=== PATIENT | male | born 1955 ===

== ENCOUNTER 2017-01-20 15:09 | Emergency (ER) | payer MEDICARE, MEDICAID ==
[2017-01-20 15:10] VITALS: BMI 27.6
[2017-01-20 15:18] VITALS: TEMP 97.8
[2017-01-20 15:19] VITALS: RESP 18
[2017-01-20] MEDS ORDERED: levoFLOXacin 500 MG TAB PO STA (15:34)
[2017-01-20] MEDS ORDERED: Oxycodone/Acetaminophen 10/325 mg Tab PO STA (15:35)
--- NOTE | 2017-01-20 15:41 | ED PDOC ---
Arrival/HPI - General Chief Complaint: ENT Problem Time Seen by Provider: 01/20/17 15:23 Historian: Patient - History of Present Illness Narrative History of Present Illness (Text): 01/20/17 15:25 This 61 yo male with pmh migraines, sinusitis, smoker, presents to this ED c/o exacerbation of Migraines x 3 days. Patient stated he has an appointment to see his Neurologist next week. Patient denies fever, cough, sob, abdominal pain , cp, urinary symptoms, recent travel, or sick contact. Time/Duration: Other (3 days) Context: Home Past Medical History - Provider Review Nursing Documentation Reviewed: Yes - Infectious Disease Hx of Infectious Diseases: None - Tetanus Immunization Tetanus Immunization: Unknown - Past Medical History Past Medical History: No Previous - Cardiac Hx Cardiac Disorders: No Hx Pacemaker: No - Pulmonary Hx Respiratory Disorders: Yes Hx Asthma: Yes - Neurological Hx Neurological Disorder: Yes Hx Migraine: Yes - HEENT Hx HEENT Disorder: No - Renal Hx Renal Disorder: Yes Hx Kidney Stones: Yes - Endocrine/Metabolic Hx Endocrine Disorders: No - Hematological/Oncological Hx Blood Disorders: No Hx Blood Transfusions: No Hx Blood Transfusion Reaction: No - Integumentary Hx Dermatological Disorder: No - Musculoskeletal/Rheumatological Hx Musculoskeletal Disorders: No - Gastrointestinal Hx Gastrointestinal Disorders: No - Genitourinary/Gynecological Hx Genitourinary Disorders: No - Psychiatric Hx Psychophysiologic Disorder: No Hx Emotional Abuse: No Hx Physical Abuse: No Hx Substance Use: No - Past Surgical History Past Surgical History: Non-Contributing - Surgical History Hx Orthopedic Surgery: Yes (hand) - Anesthesia Hx Anesthesia: Yes Hx Anesthesia Reactions: No Hx Malignant Hyperthermia: No - Suicidal Assessment Feels Threatened In Home Enviroment: No Family/Social History - Physician Review Nursing Documentation Reviewed: Yes Family/Social History: No Known Family HX Smoking Status: Heavy Smoker > 10 Cigarettes Daily Hx Alcohol Use: No Hx Substance Use: No Hx Substance Use Treatment: No Allergies/Home Meds Allergies/Adverse Reactions: Allergies No Known Allergies Allergy (Verified 01/05/17 14:59) Review of Systems - Review of Systems Constitutional: Normal. absent: Fatigue, Weight Change, Fevers Eyes: Normal. absent: Vision Changes, Photophobia, Eye Pain ENT: Normal Respiratory: Normal. absent: SOB, Cough, Sputum, Wheezing Cardiovascular: Normal. absent: Chest Pain, Palpitations Gastrointestinal: Normal Genitourinary Male: Normal. absent: Dysuria, Frequency, Hematuria Musculoskeletal: Normal Skin: Normal Neurological: Normal Endocrine: Normal Hemo/Lymphatic: Normal Psychiatric: Normal Physical Exam Vital Signs Temp Pulse Resp BP Pulse Ox 01/20/17 15:19 97.8 F 98 H 18 123/86 97 01/20/17 15:12 97.8 F 98 H 19 123/86 99 Temperature: Afebrile Blood Pressure: Normal Pulse: Regular Respiratory Rate: Normal Appearance: Positive for: Well-Appearing, Non-Toxic, Comfortable Pain Distress: None Mental Status: Positive for: Alert and Oriented X 3 - Systems Exam Head: Present: Atraumatic, Normocephalic, Other (Mild frontal and maxillary sinuses tenderness. No facial erythema or swelling.) Pupils: Present: PERRL, Other (no hyphema) Extroacular Muscles: Present: EOMI. No: Entrapment Conjunctiva: Present: Normal. No: Injected Ears: Present: Normal, NORMAL TM, Normal Canal. No: Erythema, TM Bulging, Fluid , TM Perf Mouth: Present: Moist Mucous Membranes, Normal Lips, Normal Tounge, Normal Teeth. No: Drooling Pharnyx: Present: Normal. No: ERYTHEMA, EXUDATE, TONSILS ENLARGED Nose (External): Present: Atraumatic Nose (Internal): Present: Normal Inspection Neck: Present: Normal Range of Motion, Trachea Midline. No: Meningeal Signs, MIDLINE TENDERNESS, Paraspinal Tenderness, Lymphadenopathy Respiratory/Chest: Present: Clear to Auscultation, Good Air Exchange. No: Respiratory Distress, Accessory Muscle Use, Wheezes, Rales, Retracting, Rhonchi , Tender to Palpation Cardiovascular: Present: Regular Rate and Rhythm, Normal S1, S2. No: Murmurs Abdomen: Present: Normal Bowel Sounds. No: Tenderness, Distention, Peritoneal Signs Back: Present: Normal Inspection. No: CVA Tenderness Upper Extremity: Present: Normal Inspection, Normal ROM, NORMAL PULSES, Neurovascularly Intact, Capillary Refill < 2s. No: Cyanosis, Edema Lower Extremity: Present: Normal Inspection, NORMAL PULSES, Normal ROM, Neurovascularly Intact, Capillary Refill < 2 s. No: Edema Neurological: Present: GCS=15, CN II-XII Intact, Speech Normal, Motor Func Grossly Intact, Normal Sensory Function, Normal Cerebellar Funct, Gait Normal, Memory Normal, Other (No neuro focal deficits) Skin: Present: Warm, Dry, Normal Color. No: Rashes Psychiatric: Present: Alert, Oriented x 3 Medical Decision Making ED Course and Treatment: 01/20/17 15:43 Patient return to this ED c/o exacerbation of migraines. He c/o sinuses pressure. I reviewed previous charts, labs, and CT of head performed last month , which showed sinusitis. MCMULLEN is similar to previous. Patient has a normal gait, and he stated he has an appointment to see his neurologist net week. He does not want to have labs, or further imaging, since his symptoms are the same from his regular Migraines/sinusitis pain. Re-evaluation Time: 15:50 Reassessment Condition: Re-examined, Improved - Medication Orders Current Medication Orders: Discontinued Medications Acetaminophen (Tylenol 325mg Tab) 325 mg PO STAT STA Stop: 01/20/17 15:48 Levofloxacin (Levaquin) 500 mg PO STAT STA Stop: 01/20/17 15:35 Methylprednisolone (Solu-Medrol) 125 mg IM STAT STA Stop: 01/20/17 15:36 Oxycodone HCl (Oxycodone Immediate Release Tab) 10 mg PO STAT STA Stop: 01/20/17 15:46 Disposition/Present on Arrival - Present on Arrival Any Indicators Present on Arrival: No History of DVT/PE: No History of Uncontrolled Diabetes: No Urinary Catheter: No History of Decub. Ulcer: No History Surgical Site Infection Following: None - Disposition Have Diagnosis and Disposition been Completed?: Yes Diagnosis: Headache, Sinusitis Disposition Time: 15:50 Patient Plan: Discharge Condition: GOOD Discharge Instructions (ExitCare): Sinusitis (ED), General Headache (ED) Additional Instructions: Call private neurologist office to get appointment sooner. Call ENT doctor to examine you for sinusitis. STOP SMOKING. Return to emergency if symptoms worsen. Prescriptions: Acetaminophen/Butalbital/Caf [Fioricet] 1 tab PO Q4H PRN #12 tab PRN Reason: Headache Levofloxacin [Levaquin] 500 mg PO DAILY #10 tablet Methylprednisolone [Medrol Dose Pack (21 tabs)] 4 mg PO DAILY #21 tab Referrals: PCP,KELLEY [Primary Care Provider] - Follow up with primary [place] DO [Staff Provider] - Follow up with primary
[2017-01-20] MEDS ORDERED: oxyCODONE 10 mg Immediate Release Tab PO STA (15:45)
[2017-01-20 16:25] VITALS: BP 131/89; PULSE 88; O2SAT 98
== END 2017-01-20 16:26 | disposition home or self-care (01) ==
LOC: ED 15:09
DX: R51 Headache (principal); J32.9 Chronic sinusitis, unspecified; F17.210 Nicotine dependence, cigarettes, uncomplicated
CPT/HCPCS: 96372; 99283; J2930

== ENCOUNTER 2017-01-29 17:31 | Emergency (ER) | payer MEDICARE, MEDICAID ==
[2017-01-29 17:32] VITALS: BMI 27.6
[2017-01-29 17:46] VITALS: TEMP 98.3
--- NOTE | 2017-01-29 18:40 | ED PDOC ---
Arrival/HPI <Felecia Krueger - Last Filed: 01/29/17 19:30> - General Historian: Patient - History of Present Illness Time/Duration: Other (2 days) Quality: Throbbing Context: Home <Eduardo Shell - Last Filed: 01/29/17 19:47> - General Chief Complaint: Headache Time Seen by Provider: 01/29/17 18:39 - History of Present Illness Narrative History of Present Illness (Text): 01/29/17 18:39 This 61 yo male with pmh chronic Migraines, presents to this ED c/o headaches x 2 days. Patient stated OTC pain medication do not work, and he would take 2 Percocets for his MCMULLEN. He denies diplopia, dysarthria, n/v, weakness, paresthesias, dizziness, or abnormal gait. (Eduardo Shell) Past Medical History - Provider Review Nursing Documentation Reviewed: Yes - Infectious Disease Hx of Infectious Diseases: None - Tetanus Immunization Tetanus Immunization: Unknown - Past Medical History Past Medical History: No Previous - Cardiac Hx Cardiac Disorders: No Hx Pacemaker: No - Pulmonary Hx Respiratory Disorders: Yes Hx Asthma: Yes - Neurological Hx Neurological Disorder: Yes Hx Migraine: Yes - HEENT Hx HEENT Disorder: No - Renal Hx Renal Disorder: Yes Hx Kidney Stones: Yes - Endocrine/Metabolic Hx Endocrine Disorders: No - Hematological/Oncological Hx Blood Disorders: No Hx Blood Transfusions: No Hx Blood Transfusion Reaction: No - Integumentary Hx Dermatological Disorder: No - Musculoskeletal/Rheumatological Hx Musculoskeletal Disorders: No - Gastrointestinal Hx Gastrointestinal Disorders: No - Genitourinary/Gynecological Hx Genitourinary Disorders: No - Psychiatric Hx Psychophysiologic Disorder: No Hx Emotional Abuse: No Hx Physical Abuse: No Hx Substance Use: No - Past Surgical History Past Surgical History: Non-Contributing - Surgical History Hx Orthopedic Surgery: Yes (hand) - Anesthesia Hx Anesthesia: Yes Hx Anesthesia Reactions: No Hx Malignant Hyperthermia: No - Suicidal Assessment Feels Threatened In Home Enviroment: No <Eduardo Shell - Last Filed: 01/29/17 19:47> Family/Social History - Physician Review Nursing Documentation Reviewed: Yes Family/Social History: No Known Family HX Smoking Status: Heavy Smoker > 10 Cigarettes Daily Hx Alcohol Use: No Hx Substance Use: No Hx Substance Use Treatment: No <Shell,Nahim P - Last Filed: 01/29/17 19:47> Allergies/Home Meds <Felecia Krueger - Last Filed: 01/29/17 19:30> <Eduardo Shell P - Last Filed: 01/29/17 19:47> Allergies/Adverse Reactions: Allergies No Known Allergies Allergy (Verified 01/05/17 14:59) Review of Systems - Review of Systems Constitutional: Normal. absent: Fatigue, Weight Change Eyes: Normal ENT: Normal Respiratory: Normal Cardiovascular: Normal Gastrointestinal: Normal Genitourinary Male: Normal Musculoskeletal: Normal Skin: Normal Neurological: Headache. absent: Dizziness, Focal Weakness, Gait Changes, Speech Changes, Facial Droop, Disequilibrium Endocrine: Normal Hemo/Lymphatic: Normal Psychiatric: Normal <Eduardo Shell P - Last Filed: 01/29/17 19:47> Physical Exam Temperature: Afebrile Blood Pressure: Normal Pulse: Regular Respiratory Rate: Normal Appearance: Positive for: Well-Appearing, Non-Toxic, Comfortable Pain Distress: None Mental Status: Positive for: Alert and Oriented X 3 - Systems Exam Head: Present: Atraumatic, Normocephalic Pupils: Present: PERRL Extroacular Muscles: Present: EOMI Conjunctiva: Present: Normal Mouth: Present: Moist Mucous Membranes Neck: Present: Normal Range of Motion Respiratory/Chest: Present: Clear to Auscultation, Good Air Exchange. No: Respiratory Distress, Accessory Muscle Use Cardiovascular: Present: Regular Rate and Rhythm, Normal S1, S2. No: Murmurs Abdomen: Present: Normal Bowel Sounds. No: Tenderness, Distention, Peritoneal Signs Back: Present: Normal Inspection Upper Extremity: Present: Normal Inspection. No: Cyanosis, Edema Lower Extremity: Present: Normal Inspection. No: Edema Neurological: Present: GCS=15, CN II-XII Intact, Speech Normal, Motor Func Grossly Intact, Normal Sensory Function, Normal Cerebellar Funct, Gait Normal, Memory Normal Skin: Present: Warm, Dry, Normal Color. No: Rashes Psychiatric: Present: Alert, Oriented x 3, Normal Insight, Normal Concentration <Eduardo Shell P - Last Filed: 01/29/17 19:47> Vital Signs Temp Pulse Resp BP Pulse Ox 01/29/17 19:38 88 16 141/92 H 100 01/29/17 17:32 98.3 F 114 H 24 125/100 H 95 Medical Decision Making <Felecia Krueger - Last Filed: 01/29/17 19:30> Re-evaluation Time: 19:45 Reassessment Condition: Re-examined, Improved <Eduardo Shell - Last Filed: 01/29/17 19:47> ED Course and Treatment: 01/29/17 19:45 Re-evaluation. Patient feels better. Discussed results and plan with patient who expresses understanding. All questions answered and there is agreement with the plan to discharge home with instructions. Patient stable for discharge. Return if symptoms persist or worsen (Eduardo Shell) - Medication Orders Current Medication Orders: Discontinued Medications Oxycodone/Acetaminophen (Percocet 5/325 Mg Tab) 2 tab PO STAT STA Stop: 01/29/17 18:43 Last Admin: 01/29/17 18:58 Dose: 2 TAB - PA / [employer] / Resident Statement TEOFILO has reviewed & agrees with the documentation as recorded. TEOFILO has examined the patient and agrees with the treatment plan. <Felecia Krueger - Last Filed: 01/29/17 19:30> Disposition/Present on Arrival <Felecia Krueger - Last Filed: 01/29/17 19:30> - Present on Arrival Any Indicators Present on Arrival: No History of DVT/PE: No History of Uncontrolled Diabetes: No Urinary Catheter: No History of Decub. Ulcer: No History Surgical Site Infection Following: None - Disposition Have Diagnosis and Disposition been Completed?: Yes Disposition Time: 19:45 Patient Plan: Discharge <Eduardo Shell - Last Filed: 01/29/17 19:47> - Disposition Diagnosis: Headache Disposition: HOME/ ROUTINE Condition: GOOD Additional Instructions: Make sure to call neurologist tomorrow for sooner evaluation. Take medication as instructed. Return to emergency if symptoms worsen. Prescriptions: Naproxen 500 mg PO BID PRN #14 tab PRN Reason: Pain, Severe (8-10) Referrals: Rosemary Roque, [Primary Care Provider] - Follow up with primary [facility] [Outside] - Follow up with primary
[2017-01-29] MEDS ORDERED: Oxycodone/Acetaminophen 5/325 mg Tab PO STA (18:42)
[2017-01-29 19:39] VITALS: BP 141/92; RESP 16; O2SAT 100
[2017-01-29 19:44] VITALS: PULSE 88
== END 2017-01-29 19:54 | disposition home or self-care (01) ==
LOC: ED 17:31
DX: R51 Headache (principal)

== ENCOUNTER 2017-02-04 17:01 | Emergency (ER) | payer MEDICARE, MEDICAID ==
[2017-02-04 17:14] VITALS: BMI 25.7
[2017-02-04 17:16] VITALS: RESP 19; TEMP 98.4
--- NOTE | 2017-02-04 17:28 | ED PDOC ---
Arrival/HPI - General Chief Complaint: Headache Time Seen by Provider: 02/04/17 17:09 Historian: Patient - History of Present Illness Narrative History of Present Illness (Text): 02/04/17 17:53 Sd Pascal, a 61 year old male, whose past medical history includes headaches, presents to the emergency department complaining of anterior headache and sinus pressure for the past two days. Patient states this feels identical to his previous symptoms. He states the headache is anterior in his sinuses and states this is not the worst headache of his life. He denies any nausea, vomiting, photophobia, fevers, and any other complaints at this time. Time/Duration: < week Symptom Onset: Gradual Symptom Course: Unchanged Activities at Onset: Light Context: Home Past Medical History - Provider Review Nursing Documentation Reviewed: Yes - Infectious Disease Hx of Infectious Diseases: None - Tetanus Immunization Tetanus Immunization: Unknown - Past Medical History Past Medical History: No Previous - Cardiac Hx Cardiac Disorders: No Hx Pacemaker: No - Pulmonary Hx Respiratory Disorders: Yes Hx Asthma: Yes - Neurological Hx Neurological Disorder: Yes Hx Migraine: Yes - HEENT Hx HEENT Disorder: No - Renal Hx Renal Disorder: Yes Hx Kidney Stones: Yes - Endocrine/Metabolic Hx Endocrine Disorders: No - Hematological/Oncological Hx Blood Disorders: No Hx Blood Transfusions: No Hx Blood Transfusion Reaction: No - Integumentary Hx Dermatological Disorder: No - Musculoskeletal/Rheumatological Hx Musculoskeletal Disorders: No - Gastrointestinal Hx Gastrointestinal Disorders: No - Genitourinary/Gynecological Hx Genitourinary Disorders: No - Psychiatric Hx Psychophysiologic Disorder: No Hx Emotional Abuse: No Hx Physical Abuse: No Hx Substance Use: No - Past Surgical History Past Surgical History: Non-Contributing - Surgical History Hx Orthopedic Surgery: Yes (hand) - Anesthesia Hx Anesthesia: Yes Hx Anesthesia Reactions: No Hx Malignant Hyperthermia: No - Suicidal Assessment Feels Threatened In Home Enviroment: No Family/Social History - Physician Review Nursing Documentation Reviewed: Yes Family/Social History: No Known Family HX Smoking Status: Heavy Smoker > 10 Cigarettes Daily Hx Alcohol Use: No Hx Substance Use: No Hx Substance Use Treatment: No Allergies/Home Meds Allergies/Adverse Reactions: Allergies No Known Allergies Allergy (Verified 01/05/17 14:59) Review of Systems - Physician Review All systems were reviewed & negative as marked: Yes Physical Exam - Physical Exam Narrative Physical Exam (Text): - Review of Systems Constitutional: Normal. absent: Fatigue, Weight Change, Fevers Eyes: Normal. absent: photophobia ENT: Sinus pressure Respiratory: Normal absent: SOB, Cough, Sputum Cardiovascular: Normal absent: Chest pain, Palpitations, Syncope Gastrointestinal: Normal absent: Abdominal pain, Diarrhea, Nausea, Vomiting Genitourinary: Normal. absent: Dysuria, Frequency, Hematuria Musculoskeletal: Normal. absent: Arthralgias, Back Pain, Neck Pain Skin: Normal Neurological: headache absent: Focal Weakness Endocrine: Normal Hemo/Lymphatic: Normal Psychiatric: Normal - Physical exam Patient appears age appropriate, speaking full sentences without difficulty - Systems Exam Head: Present: Atraumatic, Normocephalic Pupils: Present: PERRL Extraocular Muscles: Present: EOMI Conjunctiva: Present: Normal Mouth: Present: Moist Mucous Membranes Neck: Present: Normal Range of Motion. No: MIDLINE TENDERNESS, Paraspinal Tenderness Respiratory/Chest: Present: Clear to Auscultation, Good Air Exchange. No: Respiratory Distress, Accessory Muscle Use, Tachypneic Cardiovascular: Present: Regular Rate and Rhythm, Normal S1, S2, Peripheral Pulses Present. No: Murmurs Abdomen: Present: Normal Bowel Sounds, No: Tenderness, Peritoneal Signs, Rebound, Guarding, Distention Back: Present: Normal Inspection. No: Midline Tenderness, Paraspinal Tenderness Upper Extremity: Present: Normal Inspection. No: Cyanosis, Edema Lower Extremity: Present: Normal Inspection. No: Edema Neurological: Present: GCS=15, Speech Normal, cranial nerves II through XII fully intact with no cerebellar abnormality, neuro-sensory fully intact. No focal neurological deficits. Skin: Present: Warm, Dry, Normal Color. No: Rashes Lymphatic: Present: OX3, NI, NC Psychiatric: Present: Alert, Oriented x 3, Normal Insight, Normal Concentration Vital Signs Reviewed: Yes Vital Signs Temp Pulse Resp BP Pulse Ox 02/04/17 17:40 94 H 19 159/80 H 99 02/04/17 17:14 98.4 F 110 H 19 164/90 H 98 Temperature: Afebrile Blood Pressure: Hypertensive Pulse: Tachycardic Respiratory Rate: Normal Appearance: Positive for: Well-Appearing, Non-Toxic, Comfortable Pain Distress: Mild Mental Status: Positive for: Alert and Oriented X 3 Medical Decision Making ED Course and Treatment: 02/04/17 18:04 Impression: 61 year old male presented to emergency department complaining of headache and sinus pressure. Differential Diagnosis included but are not limited to: headache Plan: -- Toradol -- Reassess and disposition Prior Visits: Notes and results from previous visits were reviewed. On 01/29/17 patient came in complaining of migraine. Patient was discharged with prescription of naproxen. Patient had CT scan on 01/07/17 with no acute findings. Patient was seen in the ER 01/20/17 and 01/29/17 for headaches. Patient had Brain MRI on 11/29/16 which showed no acute findings Progress Notes: On discharge, patient denied any headaches, had no focal neurological deficits. Reports he feels comfortable being discharged home with outpatient follow-up. Pt states he understands to return to the ER right away for new or worsening symptoms or for inability to f/u with PMD or specialist as instructed. Patient states that he fully agrees with and understands discharge instructions. States that he agrees with the plan and disposition. Verbalized and repeated discharge instructions and plan. I have given the patient opportunity to ask any additional questions. - Medication Orders Current Medication Orders: Discontinued Medications Ketorolac Tromethamine (Toradol) 30 mg IM STAT STA Stop: 02/04/17 17:26 Last Admin: 02/04/17 17:33 Dose: 30 MG IM Administration Charges Document 02/04/17 17:33 SE (Rec: 02/04/17 17:34 SE [id number]) Injection Site MAR Injection Site Left Arm Charges for Administration # of IM Administrations 1 - Scribe Statement The provider has reviewed the documentation as recorded by the Francisco Javier Hickey training under Abiel Valiente All medical record entries made by the Francisco Javier were at my direction and personally dictated by me. I have reviewed the chart and agree that the record accurately reflects my personal performance of the history, physical exam, medical decision making, and the department course for this patient. I have also personally directed, reviewed, and agree with the discharge instructions and disposition. Disposition/Present on Arrival - Present on Arrival Any Indicators Present on Arrival: No History of DVT/PE: No History of Uncontrolled Diabetes: No Urinary Catheter: No History of Decub. Ulcer: No History Surgical Site Infection Following: None - Disposition Have Diagnosis and Disposition been Completed?: Yes Diagnosis: Headache Disposition: HOME/ ROUTINE Disposition Time: 17:26 Patient Plan: Discharge Condition: GOOD Discharge Instructions (ExitCare): General Headache (ED) Additional Instructions: PLEASE RETURN TO THE EMERGENCY DEPARTMENT FOR NEW OR WORSENING SYMPTOMS. RETURN RIGHT AWAY IF YOU CANNOT FOLLOW UP WITH YOUR PRIMARY CARE DOCTOR, CLINIC, OR SPECIALIST IN 1-2 DAYS. Prescriptions: Guaifen/Phenyleph/Acetaminophn [Mucinex Fast-Max Cold & Sinus 325 mg-200 mg-5] 1 tab PO Q6 #1 packet Naproxen [Naprosyn Tab] 250 mg PO Q8 #12 tab Referrals: Iglesia Mcpehrson MD [Staff Provider] - Follow up with primary Flaquito Mcpherson MD [Staff Provider] - Follow up with primary Tylor Hurt DO [Staff Provider] - Follow up with primary
--- NOTE | 2017-02-04 17:49 | ED PDOC ---
Arrival/HPI - General Chief Complaint: Headache Time Seen by Provider: 02/04/17 17:09 Historian: Patient Past Medical History - Infectious Disease Hx of Infectious Diseases: None - Tetanus Immunization Tetanus Immunization: Unknown - Past Medical History Past Medical History: No Previous - Cardiac Hx Cardiac Disorders: No Hx Pacemaker: No - Pulmonary Hx Respiratory Disorders: Yes Hx Asthma: Yes - Neurological Hx Neurological Disorder: Yes Hx Migraine: Yes - HEENT Hx HEENT Disorder: No - Renal Hx Renal Disorder: Yes Hx Kidney Stones: Yes - Endocrine/Metabolic Hx Endocrine Disorders: No - Hematological/Oncological Hx Blood Disorders: No Hx Blood Transfusions: No Hx Blood Transfusion Reaction: No - Integumentary Hx Dermatological Disorder: No - Musculoskeletal/Rheumatological Hx Musculoskeletal Disorders: No - Gastrointestinal Hx Gastrointestinal Disorders: No - Genitourinary/Gynecological Hx Genitourinary Disorders: No - Psychiatric Hx Psychophysiologic Disorder: No Hx Emotional Abuse: No Hx Physical Abuse: No Hx Substance Use: No - Past Surgical History Past Surgical History: Non-Contributing - Surgical History Hx Orthopedic Surgery: Yes (hand) - Anesthesia Hx Anesthesia: Yes Hx Anesthesia Reactions: No Hx Malignant Hyperthermia: No - Suicidal Assessment Feels Threatened In Home Enviroment: No Family/Social History Smoking Status: Heavy Smoker > 10 Cigarettes Daily Hx Alcohol Use: No Hx Substance Use: No Hx Substance Use Treatment: No Allergies/Home Meds Allergies/Adverse Reactions: Allergies No Known Allergies Allergy (Verified 01/05/17 14:59) Physical Exam Vital Signs Temp Pulse Resp BP Pulse Ox 02/04/17 17:14 98.4 F 110 H 19 164/90 H 98 Medical Decision Making - Medication Orders Current Medication Orders: Discontinued Medications Ketorolac Tromethamine (Toradol) 30 mg IM STAT STA Stop: 02/04/17 17:26 Last Admin: 02/04/17 17:33 Dose: 30 mg Disposition/Present on Arrival - Present on Arrival Any Indicators Present on Arrival: No History of DVT/PE: No History of Uncontrolled Diabetes: No Urinary Catheter: No History of Decub. Ulcer: No History Surgical Site Infection Following: None - Disposition Diagnosis: Headache Discharge Instructions (ExitCare): General Headache (ED) Additional Instructions: PLEASE RETURN TO THE EMERGENCY DEPARTMENT FOR NEW OR WORSENING SYMPTOMS. RETURN RIGHT AWAY IF YOU CANNOT FOLLOW UP WITH YOUR PRIMARY CARE DOCTOR, CLINIC, OR SPECIALIST IN 1-2 DAYS. Prescriptions: Guaifen/Phenyleph/Acetaminophn [Mucinex Fast-Max Cold & Sinus 325 mg-200 mg-5] 1 tab PO Q6 #1 packet Naproxen [Naprosyn Tab] 250 mg PO Q8 #12 tab Referrals: Iglesia Mcpherson MD [Staff Provider] - Follow up with primary Flaquito Mcpherson MD [Staff Provider] - Follow up with primary Tylor Hurt DO [Staff Provider] - Follow up with primary
[2017-02-04 21:18] VITALS: BP 159/80; PULSE 94; O2SAT 99
== END 2017-02-04 17:39 | disposition home or self-care (01) ==
LOC: ED 17:01
DX: R51 Headache (principal)
CPT/HCPCS: 96372; 99285; J1885

== ENCOUNTER 2017-02-05 13:43 | Emergency (ER) | payer MEDICARE, MEDICAID ==
[2017-02-05 13:43] VITALS: BMI 25.7
[2017-02-05] MEDS ORDERED: Oxycodone/Acetaminophen 5/325 mg Tab PO STA (14:16)
--- NOTE | 2017-02-05 14:24 | ED PDOC ---
Arrival/HPI - General Chief Complaint: Headache Time Seen by Provider: 02/05/17 14:03 Historian: Patient - History of Present Illness Narrative History of Present Illness (Text): 02/05/17 14:25 61 year old male whose past medical history includes migraines presents to the emergency department complaining of headache since yesterday. Patient states this feels similar to his previous headaches. Denies trauma, vision changes, neck pain, ear pain, or fever. Patient states he is scheduled to follow up with a neurologist at the end of the month. Time/Duration: < week Symptom Onset: Gradual Symptom Course: Unchanged Modifying Factors (Text): None Associated Symptoms (Text): None Past Medical History - Provider Review Nursing Documentation Reviewed: Yes - Infectious Disease Hx of Infectious Diseases: None - Tetanus Immunization Tetanus Immunization: Unknown - Past Medical History Past Medical History: No Previous - Cardiac Hx Cardiac Disorders: No Hx Pacemaker: No - Pulmonary Hx Respiratory Disorders: Yes Hx Asthma: Yes - Neurological Hx Neurological Disorder: Yes Hx Migraine: Yes - HEENT Hx HEENT Disorder: No - Renal Hx Renal Disorder: Yes Hx Kidney Stones: Yes - Endocrine/Metabolic Hx Endocrine Disorders: No - Hematological/Oncological Hx Blood Disorders: No Hx Blood Transfusions: No Hx Blood Transfusion Reaction: No - Integumentary Hx Dermatological Disorder: No - Musculoskeletal/Rheumatological Hx Musculoskeletal Disorders: No - Gastrointestinal Hx Gastrointestinal Disorders: No - Genitourinary/Gynecological Hx Genitourinary Disorders: No - Psychiatric Hx Psychophysiologic Disorder: No Hx Emotional Abuse: No Hx Physical Abuse: No Hx Substance Use: No - Past Surgical History Past Surgical History: Non-Contributing - Surgical History Hx Orthopedic Surgery: Yes (hand) - Anesthesia Hx Anesthesia: Yes Hx Anesthesia Reactions: No Hx Malignant Hyperthermia: No - Suicidal Assessment Feels Threatened In Home Enviroment: No Family/Social History - Physician Review Nursing Documentation Reviewed: Yes Family/Social History: Unknown Family HX Smoking Status: Heavy Smoker > 10 Cigarettes Daily Hx Alcohol Use: No Hx Substance Use: No Hx Substance Use Treatment: No Allergies/Home Meds Allergies/Adverse Reactions: Allergies No Known Allergies Allergy (Verified 02/05/17 14:01) Review of Systems - Review of Systems Constitutional: absent: Fevers Eyes: Photophobia. absent: Vision Changes ENT: absent: Hearing Changes, Tinnitus, Voice Changes Respiratory: absent: SOB Cardiovascular: absent: Chest Pain, Calf Pain, SEQUEIRA Gastrointestinal: absent: Abdominal Pain Genitourinary Male: absent: Dysuria Musculoskeletal: absent: Back Pain, Neck Pain Skin: absent: Rash Neurological: Headache. absent: Dizziness, Focal Weakness, Gait Changes, Speech Changes, Facial Droop, Disequilibrium, Seizure Endocrine: absent: Diaphoresis Hemo/Lymphatic: absent: Easy Bleeding Psychiatric: absent: Depression Physical Exam - Physical Exam Narrative Physical Exam (Text): Head: Atraumatic. Normocephalic. Eyes: PERRL. EOMI. Conjunctivae are not pale. Visual acuity and visual leal intact. No pain with eye movements. No proptosis. ENT: Mucous membranes are moist and intact. Oropharynx is clear and symmetric. No facial edema or erythema. No nasal tenderness. Neck: Supple. Full ROM. No JVD. No lymphadenopathy. No midline pain. Cardiovascular: Regular rate. Regular rhythm. Distal pulses are 2+ and symmetric. Pulmonary/Chest: No evidence of respiratory distress. Clear to auscultation bilaterally. No wheezing, rales or rhonchi. Abdominal: Soft and non-distended. There is no tenderness. No rebound, guarding, or rigidity. No organomegaly. Good bowel sounds. Back: No CVA tenderness. No midline tenderness. Extremities: No edema. No cyanosis. No clubbing. Full range of motion in all extremities. No calf tenderness. Skin: Skin is warm and dry. No petechiae. No purpura. Neurological: Alert, awake, and oriented. Normal speech. Normal finger to nose. Normal rapid alternating movements. Motor and sensory exam intact. No meningeal signs. Reflexes symmetric and intact. Cranial nerves intact. Psychiatric: Good eye contact. Normal interaction, affect, and behavior. No suicidal ideation. 02/05/17 17:23 Vital Signs Reviewed: Yes Vital Signs Temp Pulse Resp BP Pulse Ox 02/05/17 17:15 98 F 75 19 125/75 99 02/05/17 15:46 97.2 F L 99 H 18 147/99 H 95 02/05/17 13:57 97.5 F L 105 H 18 172/106 H 93 L Temperature: Afebrile Blood Pressure: Hypertensive Pulse: Tachycardic Respiratory Rate: Normal Appearance: Positive for: Non-Toxic, Uncomfortable Pain Distress: Moderate Mental Status: Positive for: Alert and Oriented X 3 Medical Decision Making ED Course and Treatment: Differential diagnosis includes but is not limited to: Headache, migraine, tension headache Plan: Review meds and past imaging studies, past treatment. Prior Visits: Patient's previous medical records were reviewed. Patient was last seen in the ED on 02/05/17 for headache and discharged home. PROCEDURE: CT HEAD WITHOUT CONTRAST 01/08/17 IMPRESSION: No acute intracranial abnormalities. No significant findings to account for the clinical presentation. PROCEDURE: MRI BRAIN WITHOUT CONTRAST 11/29/16 IMPRESSION: No acute intracranial findings 02/05/17 14:39 Patient describes headache as similar in character and location as prior headaches. NO motor or sensory deficits noted. No chest pain or sob. No fever or injury. Percocet given without relief. Case discussed with Dr. Iglesia Mcpherson as he already has follow up appointment arranged. Medrol dose pack recommended. Treatment plan reviewed with patient to follow up as advised with neurologist. Patient agrees with plan. IV reglan given in ED. Patient observed in ED and at 1700 complete resolution of headache. He will be discharged with medrol omar greco, has neuro follow-up. Treatment plan reviewed with patient and family. - Medication Orders Current Medication Orders: Discontinued Medications Metoclopramide HCl (Reglan) 10 mg IVP STAT STA Stop: 02/05/17 15:37 Last Admin: 02/05/17 15:54 Dose: 10 MG IVP Administration Document 02/05/17 15:54 [facility] (Rec: 02/05/17 15:54 [facility] [id number]) Charges for Administration # of IVP Administrations 1 Oxycodone/Acetaminophen (Percocet 5/325 Mg Tab) 2 tab PO STAT STA Stop: 02/05/17 14:17 Last Admin: 02/05/17 14:35 Dose: 2 TAB - Scribe Statement The provider has reviewed the documentation as recorded by the Francisco Javier Valiente All medical record entries made by the Joanaibalysha were at my direction and personally dictated by me. I have reviewed the chart and agree that the record accurately reflects my personal performance of the history, physical exam, medical decision making, and the department course for this patient. I have also personally directed, reviewed, and agree with the discharge instructions and disposition. Disposition/Present on Arrival - Present on Arrival Any Indicators Present on Arrival: No History of DVT/PE: No History of Uncontrolled Diabetes: No Urinary Catheter: No History of Decub. Ulcer: No History Surgical Site Infection Following: None - Disposition Have Diagnosis and Disposition been Completed?: Yes Diagnosis: Headache Disposition: HOME/ ROUTINE Disposition Time: 17:00 Patient Plan: Discharge Patient Problems: Current Active Problems Problem Status Diagnosed Headache Acute Condition: GOOD Discharge Instructions (ExitCare): Acute Headache (ED) Additional Instructions: Follow-up with Dr. Mcpherson as scheduled. For any worsening, return, or change in headache, any fever, any numbness or weakness, any chest pain or shortness of breath, any weakness or unsteadiness, any persistent or worsening of symptoms, get rechecked. Follow-up with neurologist as directed. Prescriptions: Methylprednisolone [Medrol Dose Pack (21 tabs)] 4 mg PO DAILY #21 mg Metoclopramide [Reglan] 10 mg PO BID PRN #10 tab PRN Reason: Headache Referrals: Iglesia Mcpherson MD [Staff Provider] - Follow up with primary
[2017-02-05 17:16] VITALS: BP 125/75; PULSE 75; RESP 19; TEMP 98; O2SAT 99
--- NOTE | 2017-02-06 16:36 | CARD ---
APPROVED REPORT EKG Measurement Heart [id number] <Conclusion> Sinus tachycardia Otherwise normal ECG
== END 2017-02-05 17:29 | disposition home or self-care (01) ==
LOC: ED 13:43
DX: R51 Headache (principal)
CPT/HCPCS: 93005; 96374; 99285; J2765

== ENCOUNTER 2017-02-05 21:55 | Emergency (ER) | payer MEDICARE, MEDICAID ==
[2017-02-05 22:10] VITALS: BMI 27.6
[2017-02-05 22:14] VITALS: BP 156/96; PULSE 116; RESP 20; TEMP 97.7; O2SAT 97
--- NOTE | 2017-02-05 22:45 | ED PDOC ---
Arrival/HPI - General Chief Complaint: Headache Time Seen by Provider: 02/05/17 22:01 Historian: Patient - History of Present Illness Narrative History of Present Illness (Text): 02/05/17 22:44 Sd Pascal is a 61 year old male, whose past medical history includes asthma and migraines, who presents to the ED complaining of headache today. Patient states headache is similar to previous migraines. Patient was seen in the ED earlier today for similar complaints, given Percocet and Reglan, and discharged home on Reglan/medrol dosepak. Patient states headache returned after he arrived home. Patient denies any fever, chills, chest pain, shortness of breath, vision changes, focal neurological deficits, dizziness, nausea, vomiting, or any other complaints. Time/Duration: Other (tonight) Symptom Onset: Gradual Symptom Course: Unchanged Activities at Onset: Rest, Light Context: Home Past Medical History - Provider Review Nursing Documentation Reviewed: Yes - Infectious Disease Hx of Infectious Diseases: None - Tetanus Immunization Tetanus Immunization: Unknown - Past Medical History Past Medical History: No Previous - Cardiac Hx Cardiac Disorders: No Hx Pacemaker: No - Pulmonary Hx Respiratory Disorders: Yes Hx Asthma: Yes - Neurological Hx Neurological Disorder: Yes Hx Migraine: Yes - HEENT Hx HEENT Disorder: No - Renal Hx Renal Disorder: Yes Hx Kidney Stones: Yes - Endocrine/Metabolic Hx Endocrine Disorders: No - Hematological/Oncological Hx Blood Disorders: No Hx Blood Transfusions: No Hx Blood Transfusion Reaction: No - Integumentary Hx Dermatological Disorder: No - Musculoskeletal/Rheumatological Hx Musculoskeletal Disorders: No - Gastrointestinal Hx Gastrointestinal Disorders: No - Genitourinary/Gynecological Hx Genitourinary Disorders: No - Psychiatric Hx Psychophysiologic Disorder: No Hx Emotional Abuse: No Hx Physical Abuse: No Hx Substance Use: No - Past Surgical History Past Surgical History: Non-Contributing - Surgical History Hx Orthopedic Surgery: Yes (hand) - Anesthesia Hx Anesthesia: Yes Hx Anesthesia Reactions: No Hx Malignant Hyperthermia: No - Suicidal Assessment Feels Threatened In Home Enviroment: No Family/Social History - Physician Review Nursing Documentation Reviewed: Yes Family/Social History: No Known Family HX Smoking Status: Heavy Smoker > 10 Cigarettes Daily Hx Alcohol Use: No Hx Substance Use: No Hx Substance Use Treatment: No Allergies/Home Meds Allergies/Adverse Reactions: Allergies No Known Allergies Allergy (Verified 04/09/17 14:01) Review of Systems - Physician Review All systems were reviewed & negative as marked: Yes - Review of Systems Constitutional: Normal. absent: Fevers Eyes: Normal ENT: Normal Respiratory: Normal. absent: SOB, Cough Cardiovascular: Normal. absent: Chest Pain Gastrointestinal: Normal. absent: Abdominal Pain, Diarrhea, Nausea, Vomiting Genitourinary Male: Normal. absent: Dysuria, Frequency, Hematuria, Urinary Output Changes Musculoskeletal: Normal. absent: Back Pain, Neck Pain Skin: Normal. absent: Rash Neurological: Headache. absent: Dizziness, Focal Weakness Endocrine: Normal Hemo/Lymphatic: Normal Psychiatric: Normal Physical Exam Vital Signs Reviewed: Yes Vital Signs Temp Pulse Resp BP Pulse Ox 02/05/17 22:13 97.7 F 116 H 20 156/96 H 97 Temperature: Afebrile Blood Pressure: Normal Pulse: Regular Respiratory Rate: Normal Appearance: Positive for: Well-Appearing, Non-Toxic, Comfortable Pain Distress: None Mental Status: Positive for: Alert and Oriented X 3 - Systems Exam Head: Present: Atraumatic, Normocephalic Pupils: Present: PERRL Extroacular Muscles: Present: EOMI Conjunctiva: Present: Normal Mouth: Present: Moist Mucous Membranes Neck: Present: Normal Range of Motion Respiratory/Chest: Present: Clear to Auscultation, Good Air Exchange. No: Respiratory Distress, Accessory Muscle Use Cardiovascular: Present: Regular Rate and Rhythm, Normal S1, S2. No: Murmurs Abdomen: Present: Normal Bowel Sounds. No: Tenderness, Distention, Peritoneal Signs Back: Present: Normal Inspection Upper Extremity: Present: Normal Inspection. No: Cyanosis, Edema Lower Extremity: Present: Normal Inspection. No: Edema Neurological: Present: GCS=15, CN II-XII Intact, Speech Normal Skin: Present: Warm, Dry, Normal Color. No: Rashes Psychiatric: Present: Alert, Oriented x 3, Normal Insight, Normal Concentration Medical Decision Making ED Course and Treatment: 02/05/17 22:44 Impression: 61 year male complaining of migraine headache. Differential Diagnosis include but are not limited to: migraine Plan: -- CT Head w/o contrast -- IV fluids -- Reglan -- Benadryl -- Morphine -- Reassess and disposition Prior Visits: Notes and results from previous visits were reviewed. Pt was seen in the Emergency department earlier today for similar complaints and d/c home. Progress Notes: 02/05/17 23:50 Reviewed radiology, CT Head shows: No acute intracranial findings. Nonacute findings as above. 02/06/17 00:31 On re-evaluation, the patient feels 100% better and is in no acute distress. Headache has resolved. I have discussed the results and plan with the patient, who expresses understanding. Patient in agreement with plan to discharged home. Patient is stable for discharge. Patient was instructed to follow up with physician/clinic in 1-2 days or return if symptoms worsen or new concerning symptoms arise. - RAD Interpretation Narrative RAD Interpretations (Text): CT Head shows: Artifacts: Artifact on some images likely relates to motion. Brain: Mild volume loss. Small old infarct anterior to the right frontal horn. No mild chronic small vessel white matter ischemic change. Small old right caudate head lacunar infarct. Ventricles: No hydrocephalus. Bones/joints: Unremarkable. No acute fracture. Soft tissues: Unremarkable. Sinuses: Mild paranasal sinus because of thickening. No fluid levels. Mastoid air cells: Left mastoid effusion, not significantly changed. Other: Stable mild proptosis. IMPRESSION: No acute intracranial findings. Nonacute findings as above. Radiology Orders: 02/05/17 22:54 HEAD W/O CONTRAST [CT] Stat Principal Software Architect: Radiologist - Medication Orders Current Medication Orders: Discontinued Medications Diphenhydramine HCl (Benadryl) 25 mg IVP ONCE ONE Stop: 02/05/17 22:56 Last Admin: 02/05/17 23:44 Dose: 25 MG IVP Administration Document 02/05/17 23:44 [facility] (Rec: 02/05/17 23:44 [id number] Charges for Administration # of IVP Administrations 1 Sodium Chloride (Sodium Chloride 0.9%) 1,000 mls @ 100 mls/hr IV .Q10H MARVEL Last Admin: 02/05/17 23:35 Dose: 100 MLS/HR eMAR Start Stop Document 02/05/17 23:35 [facility] (Rec: 02/05/17 23:35 [id number]) Intravenous Solution Start Date 02/05/17 Start Time 23:35 End Date 02/05/17 Metoclopramide HCl (Reglan) 10 mg IVP ONCE ONE Stop: 02/05/17 22:56 Last Admin: 02/05/17 23:44 Dose: 10 MG IVP Administration Document 02/05/17 23:44 [facility] (Rec: 02/05/17 23:44 [id number]) Charges for Administration # of IVP Administrations 1 Morphine Sulfate (Morphine) 2 mg IVP STAT STA Stop: 02/05/17 22:56 Last Admin: 02/05/17 23:44 Dose: 2 MG MAR Pain Assessment Document 02/05/17 23:44 [facility] (Rec: 02/05/17 23:45 [id number]) Pain Reassessment Is this a pain reassessment? No Sleep Is patient sleeping during reassessment? No Presence of Pain Presence of Pain Yes Pain Scale Used Pain Scale Used Numeric Location Pain Location Body Shipping Hand Description Description Constant Intensity of Pain at present 7 Acceptable Level of Pain 0 IVP Administration Document 02/05/17 23:44 [facility] (Rec: 02/05/17 23:45 [id number]) Charges for Administration # of IVP Administrations 1 - Scribe Statement The provider has reviewed the documentation as recorded by the Francisco Javier Giron Provider Attestation: All medical record entries made by the Francisco Javier were at my direction and personally dictated by me. I have reviewed the chart and agree that the record accurately reflects my personal performance of the history, physical exam, medical decision making, and the department course for this patient. I have also personally directed, reviewed, and agree with the discharge instructions and disposition. Disposition/Present on Arrival - Present on Arrival Any Indicators Present on Arrival: No History of DVT/PE: No History of Uncontrolled Diabetes: No Urinary Catheter: No History of Decub. Ulcer: No History Surgical Site Infection Following: None - Disposition Have Diagnosis and Disposition been Completed?: Yes Diagnosis: Migraine headache Disposition: HOME/ ROUTINE Disposition Time: 00:28 Patient Plan: Discharge Condition: GOOD Discharge Instructions (ExitCare): Migraine Headache (ED) Additional Instructions: Take meds as prescribed/follow up with your neurologist this week Prescriptions: oxyCODONE/Acetaminophen [Percocet 5/325 mg Tab] 1 tab PO Q6 PRN #12 tab PRN Reason: Headache Referrals: PCP,NO [Primary Care Provider] - Follow up with primary
[2017-02-05] MEDS ORDERED: Morphine 2 mg/ml ISec IVP STA (22:55)
[2017-02-05] MEDS ORDERED: DiphenhydrAMINE 50 mg/ml Inj IVP ONE (22:55)
[2017-02-05] MEDS ORDERED: Sodium Chloride 0.9% 1,000 ML IV SCH (23:00)
--- NOTE | 2017-02-06 07:32 | CT ---
PROCEDURE: CT HEAD WITHOUT CONTRAST. HISTORY: headache COMPARISON: 01/07/2017 TECHNIQUE: Axial computed tomography images were obtained through the head/brain without intravenous contrast. Radiation dose: Total exam DLP = 774.23 mGy-cm. This CT exam was performed using one or more of the following dose reduction techniques: Automated exposure control, adjustment of the mA and/or kV according to patient size, and/or use of iterative reconstruction technique. FINDINGS: HEMORRHAGE: No intracranial hemorrhage. BRAIN: These there is an old lacunar infarction in the right frontal periventricular white matter. Ramon-white matter differentiation is preserved. There is no mass, mass effect or abnormal extra-axial fluid collection VENTRICLES: The ventricles are normal in size, shape and configuration. CALVARIUM: The skull base and calvarium are normal. PARANASAL SINUSES: Predominantly clear. MASTOID AIR CELLS: Predominantly clear with OTHER FINDINGS: None. IMPRESSION: No acute intracranial abnormality. 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 A preliminary report was provided by [employer] services.
== END 2017-02-06 00:48 | disposition home or self-care (01) ==
LOC: ED 21:55
DX: G43.909 Migraine, unspecified, not intractable, without status migrainosus (principal)
CPT/HCPCS: 70450; 93005; 96374; 96375; 99285; J1200; J2270; J2765; J7040

== ENCOUNTER 2017-02-09 17:10 | Emergency (ER) | payer MEDICARE, MEDICAID ==
[2017-02-09 17:11] VITALS: BMI 27.6
[2017-02-09 17:29] VITALS: BP 148/87; PULSE 103; RESP 18; TEMP 97.8
[2017-02-09 17:32] VITALS: O2SAT 99
--- NOTE | 2017-02-09 17:50 | ED PDOC ---
Arrival/HPI - General Chief Complaint: Headache Time Seen by Provider: 02/09/17 17:41 Historian: Patient - History of Present Illness Narrative History of Present Illness (Text): 02/09/17 17:48 This 61 yo male well known in this ED for same c/o MCMULLEN, and sinuses pressure. Patient stated he continues with chronic MCMULLEN for several days. Patient stated that the only medication that works for his chronic MCMULLEN is Percocet. Therefore, patient is requesting to get 2 Percocet tabs in this ED. I reviewed [place] Aware Report which demonstrates patient has been given at least 20 prescription of Opiods pain medication within this last 12 months. Patient denies new complains. Time/Duration: Other (chronic) Context: Home Past Medical History - Provider Review Nursing Documentation Reviewed: Yes - Infectious Disease Hx of Infectious Diseases: None - Tetanus Immunization Tetanus Immunization: Unknown - Past Medical History Past Medical History: No Previous - Cardiac Hx Cardiac Disorders: No Hx Pacemaker: No - Pulmonary Hx Respiratory Disorders: Yes Hx Asthma: Yes - Neurological Hx Neurological Disorder: Yes Hx Migraine: Yes - HEENT Hx HEENT Disorder: No - Renal Hx Renal Disorder: Yes Hx Kidney Stones: Yes - Endocrine/Metabolic Hx Endocrine Disorders: No - Hematological/Oncological Hx Blood Disorders: No Hx Blood Transfusions: No Hx Blood Transfusion Reaction: No - Integumentary Hx Dermatological Disorder: No - Musculoskeletal/Rheumatological Hx Musculoskeletal Disorders: No - Gastrointestinal Hx Gastrointestinal Disorders: No - Genitourinary/Gynecological Hx Genitourinary Disorders: No - Psychiatric Hx Psychophysiologic Disorder: No Hx Emotional Abuse: No Hx Physical Abuse: No Hx Substance Use: No - Past Surgical History Past Surgical History: Non-Contributing - Surgical History Hx Orthopedic Surgery: Yes (hand) - Anesthesia Hx Anesthesia: Yes Hx Anesthesia Reactions: No Hx Malignant Hyperthermia: No - Suicidal Assessment Feels Threatened In Home Enviroment: No Family/Social History - Physician Review Nursing Documentation Reviewed: Yes Family/Social History: No Known Family HX Smoking Status: Heavy Smoker > 10 Cigarettes Daily Hx Alcohol Use: No Hx Substance Use: No Hx Substance Use Treatment: No Allergies/Home Meds Allergies/Adverse Reactions: Allergies No Known Allergies Allergy (Verified 02/09/17 17:29) Review of Systems - Review of Systems Constitutional: Normal. absent: Fatigue, Weight Change, Fevers Eyes: Normal ENT: Normal Respiratory: Normal Cardiovascular: Normal Gastrointestinal: Normal Genitourinary Male: Normal Musculoskeletal: Normal Skin: Normal Neurological: Headache. absent: Dizziness, Focal Weakness, Gait Changes, Speech Changes, Facial Droop, Disequilibrium, Seizure Endocrine: Normal Hemo/Lymphatic: Normal Psychiatric: Normal Physical Exam Vital Signs Temp Pulse Resp BP Pulse Ox 02/09/17 17:32 97.8 F 103 H 18 148/87 99 02/09/17 17:26 97.8 F 103 H 18 148/87 96 Temperature: Afebrile Blood Pressure: Normal Pulse: Regular Respiratory Rate: Normal Appearance: Positive for: Well-Appearing, Non-Toxic, Comfortable Pain Distress: None Mental Status: Positive for: Alert and Oriented X 3 - Systems Exam Head: Present: Atraumatic, Normocephalic Pupils: Present: PERRL Extroacular Muscles: Present: EOMI Conjunctiva: Present: Normal Ears: Present: Normal, NORMAL TM, Normal Canal. No: Erythema, TM Bulging, Fluid , TM Perf Mouth: Present: Moist Mucous Membranes Pharnyx: Present: Normal, Other (Oral pharyngeal is patent). No: ERYTHEMA, EXUDATE, TONSILS ENLARGED Nose (External): Present: Atraumatic Nose (Internal): Present: Normal Inspection. No: Engorged, Edematous, Boggy, Rhinorrhea, Purulent Mucous Neck: Present: Normal Range of Motion, Trachea Midline. No: Meningeal Signs, MIDLINE TENDERNESS, Paraspinal Tenderness, Lymphadenopathy Respiratory/Chest: Present: Clear to Auscultation, Good Air Exchange. No: Respiratory Distress, Accessory Muscle Use, Wheezes, Retracting, Rhonchi, Tachypneic Cardiovascular: Present: Regular Rate and Rhythm, Normal S1, S2. No: Murmurs Abdomen: Present: Normal Bowel Sounds. No: Tenderness, Distention, Peritoneal Signs Back: Present: Normal Inspection. No: CVA Tenderness Upper Extremity: Present: Normal Inspection, Normal ROM, NORMAL PULSES, Neurovascularly Intact, Capillary Refill < 2s. No: Cyanosis, Edema Lower Extremity: Present: Normal Inspection, NORMAL PULSES, Normal ROM, Neurovascularly Intact, Capillary Refill < 2 s. No: Edema, CALF TENDERNESS Neurological: Present: GCS=15, CN II-XII Intact, Speech Normal, Motor Func Grossly Intact, Normal Sensory Function, Normal Cerebellar Funct, Norm Deep Tendon Reflexes, Gait Normal, Memory Normal, Other (No neuro focal deficit. Normal gait, and speech) Skin: Present: Warm, Dry, Normal Color. No: Rashes Psychiatric: Present: Alert, Oriented x 3 Medical Decision Making ED Course and Treatment: 02/09/17 18:06 Re-evaluation. Patient feels better. Discussed results and plan with patient who expresses understanding. All questions answered and there is agreement with the plan to discharge home with instructions. Patient stable for discharge. Return if symptoms persist or worsen Patient appears malingering, asking for Percocet. " give me 2 Percocets here!, and you don't need to give me prescription" 02/09/17 18:32 Patient is requesting Steroid medication for his sore throat. Oral pharynx is patent. No erythema or exudates. Decadron 10 mg Im was ordered Re-evaluation Time: 18:06 Reassessment Condition: Re-examined, Improved - Medication Orders Current Medication Orders: Discontinued Medications Dexamethasone (Decadron Inj) 10 mg IM STAT STA Stop: 02/09/17 18:34 Last Admin: 02/09/17 18:53 Dose: 10 MG IM Administration Charges Document 02/09/17 18:53 SS (Rec: 02/09/17 18:53 SS [id number]) Injection Site MAR Injection Site Right Deltoid Charges for Administration # of IM Administrations 1 Naproxen (Anaprox Ds) 550 mg PO STAT STA Stop: 02/09/17 18:06 Last Admin: 02/09/17 18:28 Dose: 550 MG Disposition/Present on Arrival - Present on Arrival Any Indicators Present on Arrival: No History of DVT/PE: No History of Uncontrolled Diabetes: No Urinary Catheter: No History of Decub. Ulcer: No History Surgical Site Infection Following: None - Disposition Have Diagnosis and Disposition been Completed?: Yes Diagnosis: Chronic headache, Malingering, Drug-seeking behavior Disposition: HOME/ ROUTINE Disposition Time: 18:06 Patient Plan: Discharge Condition: GOOD Discharge Instructions (ExitCare): General Headache (ED) Additional Instructions: Call Dr. Mcpherson Neurologist tomorrow for follow up visit. Ask Dr. Mcpherson to give you non-opiod medication for headache. Take Naproxen as instructed. Prescriptions: Naproxen 500 mg PO BID PRN #10 tab PRN Reason: Pain, Severe (8-10) Referrals: Flaquito Mcpherson MD [Staff Provider] - Follow up with primary
[2017-02-09] MEDS ORDERED: Naproxen 550 mg Tab PO STA (18:05)
== END 2017-02-09 18:58 | disposition home or self-care (01) ==
LOC: ED 17:10
DX: R51 Headache (principal); Z76.5 Malingerer [conscious simulation]
CPT/HCPCS: 96372; 99285; J1100

== ENCOUNTER 2017-07-15 18:55 | Emergency (ER) | payer MEDICARE, MEDICAID ==
[2017-07-15 18:56] VITALS: BMI 27.6
[2017-07-15 19:14] VITALS: BP 150/96; PULSE 106; RESP 17; TEMP 98.2; O2SAT 98
[2017-07-15] MEDS ORDERED: Naproxen 550 mg Tab PO STA (19:51)
[2017-07-15] MEDS ORDERED: Amoxicillin-Clav 500-125 mg Tab PO STA (19:51)
--- NOTE | 2017-07-15 20:04 | ED PDOC ---
Arrival/HPI - General Chief Complaint: ENT Problem Time Seen by Provider: 07/15/17 19:01 Historian: Patient - History of Present Illness Narrative History of Present Illness (Text): 07/15/17 20:45 A 62 year old male whose past medical history includes asthma and migraines, presents to the emergency department with facial pain, nasal congestion, and migraine headache. He admits to using cocaine, the last time was 2 days ago. He states that he has chronic migraines and has not been able to get his narcotic medication, Percocet, to relieve his symptoms. He notes that he snorts cocaine to relieve his pain. The patient denies any fever, sore throat, cough, shortness of breath, nausea, vomiting, abdominal pain, urinary/bowel changes, back pain, new rashes, headache, vision changes or other associated symptoms. Time/Duration: Other (Today) Symptom Onset: Sudden Symptom Course: Unchanged Activities at Onset: Rest, Light Context: Home Past Medical History - Provider Review Nursing Documentation Reviewed: Yes - Infectious Disease Hx of Infectious Diseases: None - Tetanus Immunization Tetanus Immunization: Unknown - Past Medical History Past Medical History: No Previous - Cardiac Hx Cardiac Disorders: No Hx Pacemaker: No - Pulmonary Hx Respiratory Disorders: Yes Hx Asthma: Yes - Neurological Hx Neurological Disorder: Yes Hx Migraine: Yes - HEENT Hx HEENT Disorder: No - Renal Hx Renal Disorder: Yes Hx Kidney Stones: Yes - Endocrine/Metabolic Hx Endocrine Disorders: No - Hematological/Oncological Hx Blood Disorders: No Hx Blood Transfusions: No Hx Blood Transfusion Reaction: No - Integumentary Hx Dermatological Disorder: No - Musculoskeletal/Rheumatological Hx Musculoskeletal Disorders: No - Gastrointestinal Hx Gastrointestinal Disorders: No - Genitourinary/Gynecological Hx Genitourinary Disorders: No - Psychiatric Hx Psychophysiologic Disorder: No Hx Emotional Abuse: No Hx Physical Abuse: No Hx Substance Use: Yes - Past Surgical History Past Surgical History: Non-Contributing - Surgical History Hx Orthopedic Surgery: Yes (hand) - Anesthesia Hx Anesthesia: Yes Hx Anesthesia Reactions: No Hx Malignant Hyperthermia: No - Suicidal Assessment Feels Threatened In Home Enviroment: No Family/Social History - Physician Review Nursing Documentation Reviewed: Yes Family/Social History: No Known Family HX Smoking Status: Heavy Smoker > 10 Cigarettes Daily Hx Alcohol Use: No Hx Substance Use: Yes Substance used: coccaine Hx Substance Use Treatment: No Allergies/Home Meds Allergies/Adverse Reactions: Allergies No Known Allergies Allergy (Verified 07/15/17 19:02) Review of Systems - Physician Review All systems were reviewed & negative as marked: Yes - Review of Systems Constitutional: absent: Fevers, Night Sweats ENT: Sinus Congestion. absent: Sore Throat Respiratory: absent: SOB, Cough Cardiovascular: absent: Chest Pain Gastrointestinal: absent: Abdominal Pain, Diarrhea, Nausea, Vomiting Genitourinary Male: absent: Dysuria, Frequency, Hematuria Musculoskeletal: absent: Back Pain Neurological: Headache. absent: Dizziness Hemo/Lymphatic: Normal Psychiatric: Normal Physical Exam Vital Signs Temp Pulse Resp BP Pulse Ox 07/15/17 19:12 98.2 F 106 H 17 150/96 H 98 07/15/17 18:59 98.1 F 121 H 19 134/102 H 96 Temperature: Afebrile Blood Pressure: Hypertensive Pulse: Tachycardic Respiratory Rate: Normal Appearance: Positive for: Uncomfortable Pain Distress: Mild Mental Status: Positive for: Alert and Oriented X 3, Agitated - Systems Exam Head: Present: Atraumatic, Normocephalic, Other (Frontal and maxillary sinus tenderness) Pupils: Present: PERRL Extroacular Muscles: Present: EOMI Conjunctiva: Present: Normal Nose (Internal): Present: Edematous. No: Clear Mucous (Mucouse of naires edematous with thick yellow discharge) Neck: Present: Normal Range of Motion Back: Present: Normal Inspection Upper Extremity: Present: Normal Inspection. No: Cyanosis, Edema Lower Extremity: Present: Normal Inspection. No: Edema Neurological: Present: GCS=15, CN II-XII Intact, Speech Normal Skin: Present: Warm, Dry, Normal Color. No: Rashes Psychiatric: Present: Alert, Oriented x 3, Normal Insight, Normal Concentration , Anxious, Agitated Medical Decision Making ED Course and Treatment: 07/15/17 20:55 Impression: A 62 year old male with facial pain and nasal congestion. He admits to snorting cocaine 2 days ago. Plan: -- Anaprox, Reglan, Augmentin, and Percocet -- Reassess and disposition Prior Visits: Notes and results from previous visits were reviewed. Patient was last seen in the emergency department on 01/30/17 for chronic headache. He was discharged home. Progress Notes: Patient is requesting for a stronger pain medication for his headache, he is specifically asking for percocet. Patient given a dose of percocet 2 tabs po. 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 Patient advised that he can not be given a Rx for percocet from the ER as he was receiving regular Rxs from his pmd. Given Rx for reglan, augmentin and flonase to treat his sinusitis and migraine headache. Otherwise was advised to follow up with primary care physician in 1-2 days without fail. Advised to take medication as prescribed. Return to the emergency room at any time for any new or worsening symptoms. Patient states he fully agrees with and understands discharge instructions. States that he agrees with the plan and disposition. Verbalized and repeated discharge instructions and plan. I have given the patient opportunity to ask any additional questions. - Medication Orders Current Medication Orders: Discontinued Medications Amoxicillin/Clavulanate Potassium (Augmentin 500 Mg-125 Mg Tab) 1 tab PO STAT STA PRN Reason: Protocol Stop: 07/15/17 19:52 Last Admin: 07/15/17 20:05 Dose: 1 tab Metoclopramide HCl (Reglan) 10 mg PO STAT STA Stop: 07/15/17 19:52 Last Admin: 07/15/17 20:05 Dose: 10 mg Naproxen (Anaprox Ds) 550 mg PO STAT STA Stop: 07/15/17 19:52 Last Admin: 07/15/17 20:05 Dose: 550 mg Oxycodone/Acetaminophen (Percocet 5/325 Mg Tab) 2 tab PO STAT STA Stop: 07/15/17 20:26 Last Admin: 07/15/17 20:34 Dose: 2 tab - PA / REGIONAL ADMINISTRATIVE ASSISTANT / Resident Statement MD/DO has reviewed & agrees with the documentation as recorded. - Scribe Statement The provider has reviewed the documentation as recorded by the Joanaibalysha Krishnamurthy Provider Jaonaibe Attestation: All medical record entries made by the Scribe were at my direction and personally dictated by me. I have reviewed the chart and agree that the record accurately reflects my personal performance of the history, physical exam, medical decision making, and the department course for this patient. I have also personally directed, reviewed, and agree with the discharge instructions and disposition. Disposition/Present on Arrival - Present on Arrival Any Indicators Present on Arrival: No History of DVT/PE: No History of Uncontrolled Diabetes: No Urinary Catheter: No History of Decub. Ulcer: No History Surgical Site Infection Following: None - Disposition Have Diagnosis and Disposition been Completed?: Yes Diagnosis: Sinusitis Disposition: HOME/ ROUTINE Disposition Time: 20:01 Patient Plan: Discharge Condition: STABLE Discharge Instructions (ExitCare): Sinusitis (ED) Print Language: ARMENIAN Additional Instructions: Thank you for letting us take care of you today. You were treated for sinusitis. The emergency medical care you received today was directed at your acute symptoms. If you were prescribed any medication, please fill it and take as directed. It may take several days for your symptoms to resolve. Return to the Emergency Department if your symptoms worsen, do not improve, or if you have any other problems. Please contact your doctor in 2 days for re-evaluation and follow up / or call one of the physicians/clinics you have been referred to that are listed on the Patient Visit Information form that is included in your discharge packet. Bring any paperwork you were given at discharge with you along with any medications you are taking to your follow up visit. Our treatment cannot replace ongoing medical care by a primary care provider (PCP) outside of the emergency department. Thank you for allowing the [facility] team to be part of your care today. Prescriptions: Amoxicillin/Potassium Clav [Augmentin 500-125 Tablet] 1 each PO TID #30 tablet Fluticasone Propionate [Flonase] 2 spr RAJI DAILY #1 bottle Metoclopramide HCl [Reglan] 10 mg PO QID PRN #20 tablet PRN Reason: Headache Referrals: Randy Harp MD [Primary Care Provider] - Follow up with primary Forms: [employer] (Yi)
[2017-07-15] MEDS ORDERED: Oxycodone/Acetaminophen 5/325 mg Tab PO STA (20:25)
== END 2017-07-15 20:34 | disposition home or self-care (01) ==
LOC: ED 18:55
DX: J32.9 Chronic sinusitis, unspecified (principal)

== ENCOUNTER 2017-07-28 18:53 | Emergency (ER) | payer MEDICARE, MEDICAID ==
[2017-07-28 19:03] VITALS: BP 144/91; PULSE 112; TEMP 97.9; BMI 29.2
--- NOTE | 2017-07-28 19:17 | ED PDOC ---
Arrival/HPI <Jeremias Burnett - Last Filed: 07/28/17 19:42> - General Historian: Patient <Eduardo Shell - Last Filed: 07/28/17 21:28> - General Chief Complaint: Lower Extremity Problem/Injury Time Seen by Provider: 07/28/17 19:17 - History of Present Illness Narrative History of Present Illness (Text): 07/28/17 19:17 This 62 yo male with pmh asthma, htn, chronic migraines, presents to this ED c/ o left lateral ankle infection x 7-10 days. Patient stated infection is painful. Patient does not know what caused the infection. Denies recent travel , sick contact, fever, or leg edema. (Eduardo Shell) Past Medical History - Provider Review Nursing Documentation Reviewed: Yes - Infectious Disease Hx of Infectious Diseases: None - Tetanus Immunization Tetanus Immunization: Unknown - Past Medical History Past Medical History: No Previous - Cardiac Hx Cardiac Disorders: No Hx Pacemaker: No - Pulmonary Hx Respiratory Disorders: Yes Hx Asthma: Yes - Neurological Hx Neurological Disorder: Yes Hx Migraine: Yes - HEENT Hx HEENT Disorder: No - Renal Hx Renal Disorder: Yes Hx Kidney Stones: Yes - Endocrine/Metabolic Hx Endocrine Disorders: No - Hematological/Oncological Hx Blood Disorders: No Hx Blood Transfusions: No Hx Blood Transfusion Reaction: No - Integumentary Hx Dermatological Disorder: No - Musculoskeletal/Rheumatological Hx Musculoskeletal Disorders: No - Gastrointestinal Hx Gastrointestinal Disorders: No - Genitourinary/Gynecological Hx Genitourinary Disorders: No - Psychiatric Hx Psychophysiologic Disorder: No Hx Emotional Abuse: No Hx Physical Abuse: No Hx Substance Use: Yes - Past Surgical History Past Surgical History: Non-Contributing - Surgical History Hx Orthopedic Surgery: Yes (hand) - Anesthesia Hx Anesthesia: Yes Hx Anesthesia Reactions: No Hx Malignant Hyperthermia: No - Suicidal Assessment Feels Threatened In Home Enviroment: No <Eduardo Shell - Last Filed: 07/28/17 21:28> Family/Social History - Physician Review Nursing Documentation Reviewed: Yes Family/Social History: Other (non-contributory) Smoking Status: Heavy Smoker > 10 Cigarettes Daily Hx Alcohol Use: No Hx Substance Use: Yes Substance used: coccaine Hx Substance Use Treatment: No <Eduardo Shell - Last Filed: 07/28/17 21:28> Allergies/Home Meds <Jeremias Burnett - Last Filed: 07/28/17 19:42> <Eduardo Shell - Last Filed: 07/28/17 21:28> Allergies/Adverse Reactions: Allergies No Known Allergies Allergy (Verified 07/28/17 21:23) Home Medications: Home Meds Medication Instructions Recorded Confirmed No Known Home Med 07/28/17 07/28/17 Review of Systems - Review of Systems Constitutional: Normal. absent: Fatigue, Weight Change, Fevers, Night Sweats Eyes: Normal ENT: Normal Respiratory: Normal Cardiovascular: Normal Gastrointestinal: Normal Genitourinary Male: Normal Musculoskeletal: Other (ankle pain. see hpi) Skin: Abscess, Cellulitis, Other (see hpi) Neurological: Normal Endocrine: Normal Hemo/Lymphatic: Normal Psychiatric: Normal <Eduardo Shell P - Last Filed: 07/28/17 21:28> Physical Exam Temperature: Afebrile Blood Pressure: Normal Pulse: Regular Respiratory Rate: Normal Appearance: Positive for: Well-Appearing, Non-Toxic, Comfortable Pain Distress: None Mental Status: Positive for: Alert and Oriented X 3 - Systems Exam Head: Present: Atraumatic, Normocephalic Pupils: Present: PERRL Extroacular Muscles: Present: EOMI Conjunctiva: Present: Normal Mouth: Present: Moist Mucous Membranes Neck: Present: Normal Range of Motion Respiratory/Chest: Present: Clear to Auscultation, Good Air Exchange. No: Respiratory Distress, Accessory Muscle Use Cardiovascular: Present: Regular Rate and Rhythm, Normal S1, S2. No: Murmurs Abdomen: Present: Normal Bowel Sounds. No: Tenderness, Distention, Peritoneal Signs Back: Present: Normal Inspection Upper Extremity: Present: Normal Inspection. No: Cyanosis, Edema Lower Extremity: Present: NORMAL PULSES, Normal ROM, Erythema, Temperature Abnormalties, Neurovascularly Intact, Capillary Refill < 2 s, Other (3 cm ulcer- like infection). No: Edema, CALF TENDERNESS Neurological: Present: GCS=15, CN II-XII Intact, Speech Normal Skin: Present: Warm, Dry, Normal Color. No: Rashes Psychiatric: Present: Alert, Oriented x 3, Normal Insight, Normal Concentration <Eduardo Shell P - Last Filed: 07/28/17 21:28> Vital Signs Temp Pulse Resp BP Pulse Ox 07/28/17 20:53 18 99 07/28/17 19:06 97.9 F 112 H 19 144/91 H 98 07/28/17 19:02 97.9 F 112 H 19 144/91 H 98 Medical Decision Making <Jeremias Burnett - Last Filed: 07/28/17 19:42> - Lab Interpretations I have reviewed the lab results: Yes Interpretation: Abnormal lab values <Shell,Nahim P - Last Filed: 07/28/17 21:28> ED Course and Treatment: 07/28/17 20:55 Patient ELOPED (Shell,Nahim P) - Lab Interpretations Lab Results: 07/28/17 19:36 07/28/17 19:36 Lab Results 07/28/17 19:36: ESR 50 H 07/28/17 19:36: pO2 89 H, VBG pH 7.40, VBG pCO2 46.0, VBG HCO3 28.5 H, VBG Total CO2 29.9 H, VBG O2 Sat (Calc) 98.8 H, VBG Base Excess 3.0 H, VBG Potassium 3.9, Sodium 136.0, Chloride 104.0, Glucose 112 H, Lactate 1.3, FiO2 21.0, Venous Blood Potassium 3.9 07/28/17 19:36: Sodium 138, Chloride 101, Potassium 3.9, Carbon Dioxide 27, Anion Gap 14, BUN 15, Creatinine 1.0, Est GFR ( Amer) > 60, Est GFR (Non- Af Amer) > 60, Random Glucose 110, Calcium 9.1, Total Bilirubin 0.4, AST 30, ALT 20, Alkaline Phosphatase 75, Total Protein 7.6, Albumin 3.8, Globulin 3.8, Albumin/Globulin Ratio 1.0 L 07/28/17 19:36: PT 10.6, INR 0.98, APTT 29.6 07/28/17 19:36: WBC 15.7 H D, RBC 4.58, Hgb 10.1 L, Hct 33.5 L, MCV 73.1 L, MCH 22.1 L, MCHC 30.1 L, RDW 22.2 H, Plt Count 624 H, MPV 8.9, Gran % 82.0 H, Lymph % (Auto) 11.4 L, [place] % (Auto) 4.6, Eos % (Auto) 1.7, Baso % (Auto) 0.3, Gran # 12.86 H, Lymph # 1.8, [place] # 0.7 H, Eos # 0.3, Baso # 0.04 - RAD Interpretation Radiology Orders: 07/28/17 20:23 ANKLE LEFT 3 VIEWS ROUTINE [RAD] Stat - Medication Orders Current Medication Orders: Discontinued Medications Sodium Chloride (Sodium Chloride 0.9%) 1,000 mls @ 999 mls/hr IV .Q1H1M STA Stop: 07/28/17 20:19 Last Admin: 07/28/17 19:58 Dose: 999 mls/hr eMAR Start Stop Document 07/28/17 19:58 [email or web address] (Rec: 07/28/17 19:58 [email or web address] [facility] [id number] Intravenous Solution Start Date 07/28/17 Start Time 19:58 End Date 07/28/17 Vancomycin HCl (Vancomycin 1gm) 1 gm in 250 mls @ 167 mls/hr IVPB STAT STA PRN Reason: Protocol Stop: 07/28/17 20:48 Last Admin: 07/28/17 20:29 Dose: 167 mls/hr eMAR Start Stop Document 07/28/17 20:29 SF (Rec: 07/28/17 20:30 [place] [facility] [id number] Intravenous Solution Start Date 07/28/17 Start Time 20:30 End Date 07/28/17 End time 22:00 Total Infusion Time 90 Piperacillin Sod/Tazobactam Sod (Zosyn 4.5 Gm In Ns 100ml) 4.5 gm in 100 mls @ 200 mls/hr IVPB STAT STA PRN Reason: Protocol Stop: 07/28/17 19:49 Last Admin: 07/28/17 19:58 Dose: 200 mls/hr eMAR Start Stop Document 07/28/17 19:58 [email or web address] (Rec: 07/28/17 19:58 [email or web address] [facility] [id number] Intravenous Solution Start Date 07/28/17 Start Time 19:58 End Date 07/28/17 Oxycodone/Acetaminophen (Percocet 5/325 Mg Tab) 1 tab PO STAT STA Stop: 07/28/17 19:22 Last Admin: 07/28/17 19:58 Dose: 1 tab MAR Pain Assessment Document 07/28/17 19:58 [email or web address] (Rec[facility]28[facility]17 [id number] Pain Reassessment Is this a pain reassessment? No Sleep Is patient sleeping during reassessment? No Presence of Pain Presence of Pain Yes Pain Scale Used Pain Scale Used Numeric Location Left, Right or Bilateral Left Pain Location Body Site Foot Description Description Constant Pain Behavior Facial Grimacing Aggravating Factors Changing Position Alleviating Factors/Management Position Change Techniques Alleviating Factors Medication - PA / CHARTER DRIVER / Resident Statement MD/DO has reviewed & agrees with the documentation as recorded. / has examined the patient and agrees with the treatment plan. <Jeremias Burnett - Last Filed: 07/28/17 19:42> Disposition/Present on Arrival <Jeremias Burnett - Last Filed: 07/28/17 19:42> - Present on Arrival Any Indicators Present on Arrival: No History of DVT/PE: No History of Uncontrolled Diabetes: No Urinary Catheter: No History of Decub. Ulcer: No History Surgical Site Infection Following: None - Disposition Have Diagnosis and Disposition been Completed?: Yes Disposition Time: 21:00 <Eduardo Shell - Last Filed: 07/28/17 21:28> - Disposition Diagnosis: Ankle cellulitis Disposition: ELOPEMENT - ER ONLY Condition: UNKNOWN Discharge Instructions (ExitCare): Cellulitis (ED) Referrals: PCP,NO [Primary Care Provider] - Follow up with primary Forms: [employer] (Paraguayan)
[2017-07-28] MEDS ORDERED: Sodium Chloride 0.9% 1,000 ML IV STA (19:19)
[2017-07-28] MEDS ORDERED: Vancomycin 1gm in NS 250ml 1 GM/250 ML BAG IVPB STA (19:19)
[2017-07-28] MEDS ORDERED: Piperacill/Tazo 4.5gm in NS 4.5 GM/100 ML BAG IVPB STA (19:20)
[2017-07-28] MEDS ORDERED: Oxycodone/Acetaminophen 5/325 mg Tab PO STA (19:21)
[2017-07-28 20:01] LABS: BASO # 0.04 K/mm3 (0.0-2.0); BASO % 0.3 % (0.0-3.0); EOS # 0.3 (0.0-0.7); EOS % 1.7 % (1.5-5.0); GRAN # 12.86 (1.4-6.5); HEMATOCRIT 33.5 % (42.0-52.0); LYMPH # 1.8 (1.2-3.4); LYMPH % 11.4 % (22.0-35.0); MEAN CELL VOLUME 73.1 fl (80.0-105.0); MEAN CORPUSCULAR HEMOGLOBIN 22.1 pg (25.0-35.0); MEAN CORPUSCULAR HGB CONC 30.1 g/dl (31.0-37.0); MEAN PLATELET VOLUME 8.9 fl (7.0-11.0); MONO # 0.7 (0.1-0.6); MONO % 4.6 % (1.0-6.0); RED CELL DISTRIBUTION WIDTH 22.2 % (11.5-14.5); WHITE BLOOD COUNT 15.7 10^3/ul (4.5-11.0)
[2017-07-28 20:02] LABS: ALKALINE PHOSPHATASE 75 U/L (38-126); ALT/SGPT 20 U/L (7-56); AST/SGOT 30 U/L (17-59); BILIRUBIN,TOTAL 0.4 mg/dL (0.2-1.3); BLOOD UREA NITROGEN 15 mg/dL (7-21); CALCIUM 9.1 mg/dL (8.4-10.5); CARBON DIOXIDE 27 mmol/L (21-33); CHLORIDE 101 mmol/L (98-107); GFR AFRICAN-AMERICAN > 60; GLUCOSE,RANDOM 110 mg/dL (70-110); POTASSIUM 3.9 mmol/L (3.6-5.0); SODIUM 138 mmol/L (132-148); TOTAL PROTEIN 7.6 g/dL (5.8-8.3)
[2017-07-28 20:07] LABS: INR 0.98 (0.93-1.08); PARTIAL THROMBOPLASTIN TIME 29.6 Seconds (23.7-30.8)
[2017-07-28 20:54] VITALS: RESP 18; O2SAT 99
== END 2017-07-28 20:54 | disposition left against medical advice (07) ==
LOC: ED 18:53
DX: L03.116 Cellulitis of left lower limb (principal); I10 Essential (primary) hypertension; F17.210 Nicotine dependence, cigarettes, uncomplicated
CPT/HCPCS: 80053; 82803; 85025; 85610; 85651; 85730; 86140; 87040; 87070; 96365; 99283; J2543; J7040

== ENCOUNTER 2017-07-28 21:19 | Emergency (ER) | payer MEDICARE, MEDICAID ==
[2017-07-28 21:23] VITALS: BMI 28.2
--- NOTE | 2017-07-28 21:26 | ED PDOC ---
Arrival/HPI - General Time Seen by Provider: 07/28/17 21:25 Historian: Patient - History of Present Illness Narrative History of Present Illness (Text): 07/28/17 21:25 t Past Medical History - Infectious Disease Hx of Infectious Diseases: None - Tetanus Immunization Tetanus Immunization: Unknown - Past Medical History Past Medical History: No Previous - Cardiac Hx Cardiac Disorders: No Hx Pacemaker: No - Pulmonary Hx Respiratory Disorders: Yes Hx Asthma: Yes - Neurological Hx Neurological Disorder: Yes Hx Migraine: Yes - HEENT Hx HEENT Disorder: No - Renal Hx Renal Disorder: Yes Hx Kidney Stones: Yes - Endocrine/Metabolic Hx Endocrine Disorders: No - Hematological/Oncological Hx Blood Disorders: No Hx Blood Transfusions: No Hx Blood Transfusion Reaction: No - Integumentary Hx Dermatological Disorder: No - Musculoskeletal/Rheumatological Hx Musculoskeletal Disorders: No - Gastrointestinal Hx Gastrointestinal Disorders: No - Genitourinary/Gynecological Hx Genitourinary Disorders: No - Psychiatric Hx Psychophysiologic Disorder: No Hx Emotional Abuse: No Hx Physical Abuse: No Hx Substance Use: Yes - Past Surgical History Past Surgical History: Non-Contributing - Surgical History Hx Orthopedic Surgery: Yes (hand) - Anesthesia Hx Anesthesia: Yes Hx Anesthesia Reactions: No Hx Malignant Hyperthermia: No - Suicidal Assessment Feels Threatened In Home Enviroment: No Family/Social History Smoking Status: Heavy Smoker > 10 Cigarettes Daily Hx Alcohol Use: No Hx Substance Use: Yes Substance used: coccaine Hx Substance Use Treatment: No Allergies/Home Meds Allergies/Adverse Reactions: Allergies No Known Allergies Allergy (Verified 07/28/17 21:23) Home Medications: Home Meds Medication Instructions Recorded Confirmed No Known Home Med 07/28/17 07/28/17 Disposition/Present on Arrival - Present on Arrival History of DVT/PE: No History of Uncontrolled Diabetes: No Urinary Catheter: No History Surgical Site Infection Following: None - Disposition
[2017-07-28 21:28] VITALS: BP 129/62; PULSE 100; O2SAT 98
[2017-07-28 21:49] VITALS: RESP 18
== END 2017-07-28 21:50 | disposition left against medical advice (07) ==
LOC: ED 21:19
DX: Z02.89 Encounter for other administrative examinations (principal); M25.572 Pain in left ankle and joints of left foot
CPT/HCPCS: 72HRC; LWBS0

== ENCOUNTER 2017-08-24 11:08 | Day surgery (SDC) | payer MEDICARE, MEDICAID ==
[2017-08-22 12:26] VITALS: BMI 28.5
[2017-08-24 11:38] LABS: BASO # 0.06 K/mm3 (0.0-2.0); BASO % 0.6 % (0.0-3.0); EOS # 0.5 (0.0-0.7); EOS % 4.9 % (1.5-5.0); GRAN # 6.98 (1.4-6.5); GRAN % 71.6 % (50.0-68.0); HEMATOCRIT 32.2 % (42.0-52.0); LYMPH # 1.6 (1.2-3.4); LYMPH % 16.4 % (22.0-35.0); MEAN CELL VOLUME 76.1 fl (80.0-105.0); MEAN CORPUSCULAR HEMOGLOBIN 22.7 pg (25.0-35.0); MEAN CORPUSCULAR HGB CONC 29.8 g/dl (31.0-37.0); MEAN PLATELET VOLUME 8.9 fl (7.0-11.0); MONO # 0.6 (0.1-0.6); MONO % 6.5 % (1.0-6.0); RED CELL DISTRIBUTION WIDTH 20.9 % (11.5-14.5); WHITE BLOOD COUNT 9.8 10^3/ul (4.5-11.0)
[2017-08-24 11:44] LABS: BLOOD UREA NITROGEN 12 mg/dL (7-21); CALCIUM 8.9 mg/dL (8.4-10.5); CARBON DIOXIDE 25 mmol/L (21-33); CHLORIDE 107 mmol/L (98-107); GFR AFRICAN-AMERICAN > 60; GLUCOSE,RANDOM 113 mg/dL (70-110); POTASSIUM 4.2 mmol/L (3.6-5.0); SODIUM 141 mmol/L (132-148)
[2017-08-24 12:07] LABS: INR 1.05 (0.93-1.08); PARTIAL THROMBOPLASTIN TIME 33.7 Seconds (25.1-36.5)
[2017-08-24] MEDS ORDERED: Lidocaine 2% Inj (20ml) ONE (12:42)
[2017-08-24] MEDS ORDERED: Iodixanol 320 mg/ml 150 ml Bottle IV ONE ×2 (12:43→14:40)
[2017-08-24] MEDS ORDERED: Iodixanol 320 MG/ML 200 ML BOTTLE IV ONE (12:43)
[2017-08-24] MEDS ORDERED: Midazolam 2 MG/2 ML VIAL ONE ×4 (12:43→14:44)
[2017-08-24] MEDS ORDERED: Nitroglycerin 50mg in D5W 50 MG/250 ML BOTTLE IV ONE (13:30)
[2017-08-24] MEDS ORDERED: DiphenhydrAMINE 50 mg/ml Inj ONE (14:03)
[2017-08-24] MEDS ORDERED: HYDROmorphone 2 mg/ml ISec IVP STA (16:17)
[2017-08-24] MEDS ORDERED: HYDROmorphone 2 mg/ml ISec ONE (16:19)
[2017-08-24] MEDS ORDERED: HYDROmorphone 2 mg/ml ISec IVP ONE (16:25)
[2017-08-24] MEDS ORDERED: Oxycodone/Acetaminophen 5/325 mg Tab PO PRN (16:46)
[2017-08-24] MEDS ORDERED: Sodium Chloride 0.45% 1,000 ML IV SCH (17:00)
[2017-08-24 17:21] VITALS: RESP 18; TEMP 97.9
[2017-08-24 18:10] VITALS: PULSE 95; O2SAT 95
[2017-08-24 18:51] VITALS: BP 124/72
--- NOTE | 2017-08-24 19:43 | VASCULAR ---
PROCEDURE: 1. Abdominal aortogram and bilateral lower extremity runoff with left selective views. 2. Distal left SFA silver Hawk atherectomy, drug-eluting balloon angioplasty, and focal Supera stent placement. 3. Left external iliac artery angioplasty and stent placement HISTORY: Severe peripheral vascular disease. Ischemic ulceration and pain eft lateral calf. Smoker. PHYSICIAN(S): Emmanuel Dickens M.D. TECHNIQUE: The relative risks and indications of the procedure were explained to the patient and consent obtained. The patient was hydrated prior to the procedure and the appropriate labs drawn. The patient was placed supine on the arteriogram table and the right groin prepped and draped in the usual sterile fashion. Conscious sedation and monitoring were provided throughout the procedure by a nurse. Via a right common femoral artery approach, a 5 Latvian sheath was placed in the right groin. Through the sheath and over a guidewire, a 5 Latvian flush catheter was placed in the abdominal aorta at the level of the renal arteries and a PA DSA abdominal aortogram performed. The catheter was pulled down to the aortic bifurcation and bilateral oblique DSA pelvic arteriograms performed. Overlapping bilateral lower extremity DSA arteriograms were obtained from the inguinal ligaments to the ankles. 0.035 stiff angled glide was advanced into the left SFA. A 7 Latvian 65 cm sheath was used to measure a pressure gradient across the left external iliac artery stenosis. 25-30 mm gradient was demonstrated. The sheath was placed in the mid left SFA. 12 cm occlusion of the terminal left SFA was crossed with some difficulty. And out back catheter was necessary for re-entry. 0.014 support wire was placed the left anterior tibial artery. Silver Hawk atherectomy of the distal left SFA was performed with and LS catheter. Approximately 8 passes were performed. Antegrade flow was re-established. The left SFA was dilated with 6 mm drug-eluting balloon. A residual stenosis was noted at the re- entry site. This area was dilated with a 7 mm balloon. 6.5 x 100 mm Supera stent was deployed in the distal left SFA. An excellent angiographic result was obtained. The sheath was retracted into the left common iliac artery. The left external iliac artery stenosis was dilated with an 8 mm balloon. Next a 9 mm by 80 mm self expanding stent was deployed in the proximal left external iliac artery. Completion arteriograms were obtained. The sheath was removed and hemostasis obtained with a Mynx device. The patient tolerated the procedure well. FINDINGS: There are single renal arteries bilaterally which are widely patent and normal in appearance. The nephrograms are symmetric in appearance. The infrarenal abdominal aorta is calcified and slightly ectatic but widely patent.. The aortic bifurcation is widely patent. The iliac arteries are tortuous. Diffuse mild to moderate disease is seen. There is a significant stenosis of the proximal left external iliac artery. A 25/30 mm gradient was demonstrated. Right lower extremity: The right common femoral artery is patent. The right profunda femoral artery is enlarged.. There is diffuse disease of the right SFA. There is a short segment occlusion of the distal right SFA. The right popliteal artery reconstitutes in the adductor canal. The right popliteal artery is patent and continuous. There is 2 vessel runoff on the right. Left lower extremity: Left common femoral artery is patent. The left profunda femoral artery is enlarged.. The left superficial femoral artery is diffusely disease with a 12 cm occlusion of the distal left SFA.. The left popliteal artery reconstitutes above patella. The left popliteal artery is continuous. Wrist 3 vessel left tibial runoff with smooth diffuse disease. IMPRESSION: 1.Distal left SFA recanalization with silver Hawk atherectomy, drug-eluting balloon angioplasty, and focal stent placement. 2. Left external iliac artery angioplasty and stent placement.
== END 2017-08-24 19:00 | disposition home or self-care (01) ==
LOC: SDSVAS 11:08
PROVIDERS: ATTEND Radiology Vascular & Interventional Radiology
DX: I70.242 Atherosclerosis of native arteries of left leg with ulceration of calf (principal); I70.8 Atherosclerosis of other arteries; F17.200 Nicotine dependence, unspecified, uncomplicated
CPT/HCPCS: 36415; 37221; 37227; 75625; 75716; 80048; 85025; 85610; 85730; 99152; 99153; C1725 ×5; C1760; C1764; C1769 ×5; C1876 ×2; C1885; C1887 ×2; C1894 ×2; J0690; J1170; J1200; J1644 ×2; J2250; J2270; J2405; J3010; J7030 ×2

== ENCOUNTER 2017-09-15 12:13 | Inpatient (IN) | payer MEDICARE, MEDICAID ==
--- NOTE | 2017-09-15 12:52 | ED PDOC ---
Arrival/HPI - General Chief Complaint: Lower Extremity Problem/Injury Time Seen by Provider: 09/15/17 12:32 - History of Present Illness Narrative History of Present Illness (Text): 62 y/o M c PMHx HTN, PVD, migraine, staghorn calculus p/w R foot toe pain x 1 week. Denies fever or trauma. Was seen in office with VICTORIANO Harp who instructed patient to come to ED for further evaluation and treatment. Patient with recent stent placement by Dr. Emmanuel Dickens for severe PVD. Past Medical History - Infectious Disease Hx of Infectious Diseases: None - Tetanus Immunization Tetanus Immunization: Unknown - Past Medical History Past Medical History: No Previous - Cardiac Hx Cardiac Disorders: No - Pulmonary Hx Respiratory Disorders: Yes Hx Asthma: Yes - Neurological Hx Neurological Disorder: No - HEENT Hx HEENT Disorder: No - Renal Hx Renal Disorder: Yes Hx Kidney Stones: Yes - Endocrine/Metabolic Hx Endocrine Disorders: No - Hematological/Oncological Hx Blood Disorders: No - Integumentary Hx Dermatological Disorder: No - Musculoskeletal/Rheumatological Hx Musculoskeletal Disorders: No - Gastrointestinal Hx Gastrointestinal Disorders: No - Genitourinary/Gynecological Hx Genitourinary Disorders: No - Psychiatric Hx Psychophysiologic Disorder: No Hx Substance Use: No - Past Surgical History Past Surgical History: Non-Contributing - Surgical History Other/Comment: stent placement to left groin - Anesthesia Hx Anesthesia Reactions: No Hx Malignant Hyperthermia: No - Suicidal Assessment Feels Threatened In Home Enviroment: No Family/Social History Family/Social History: No Known Family HX Smoking Status: Heavy Smoker > 10 Cigarettes Daily Hx Alcohol Use: No Hx Substance Use: No Substance used: coccaine Hx Substance Use Treatment: No Allergies/Home Meds Allergies/Adverse Reactions: Allergies No Known Allergies Allergy (Verified 09/15/17 12:33) Home Medications: Home Meds Medication Instructions Recorded Confirmed No Known Home Med 09/15/17 09/15/17 Review of Systems - Physician Review All systems were reviewed & negative as marked: Yes - Review of Systems Constitutional: absent: Fevers Cardiovascular: absent: Chest Pain Physical Exam - Physical Exam Narrative Physical Exam (Text): Constitutional: No acute distress. Head: Normocephalic. Atraumatic. Eyes: PERRL. ENT: Moist mucous membranes. Neck: Supple. Cardiovascular: Regular rate. Chest: No tenderness. Respiratory: Clear to auscultation bilaterally. GI: Soft. Nontender. Nondistended. Musculoskeletal: Tenderness of R foot. Skin: Punctate ecchymosis to tips of R foot toes. Neurologic: Alert, no focal deficit. Vital Signs Temp Pulse Resp BP Pulse Ox 09/15/17 13:05 98.0 F 98 H 18 121/64 96 09/15/17 12:24 97.8 F 110 H 16 123/69 95 Medical Decision Making ED Course and Treatment: Dr. Fonseca recommends Zosyn and Doppler at this time, no other imaging recommended. Dr. Goins accepts patient to hospitalist service, will add arterial doppler as well. EKG Sinus rhythm, 105 bpm, no ST/T wave changes. CXR IMPRESSION: No active disease. No significant interval change compared to the prior examination(s). - Lab Interpretations Lab Results: 09/15/17 12:56 09/15/17 12:56 Lab Results 09/15/17 13:30: Blood Type Confirm O POSITIVE 09/15/17 13:06: Blood Type O POSITIVE, Antibody Screen Negative, BBK History Checked No verified bt 09/15/17 12:56: Sodium 138, Potassium 4.4, Chloride 103, Carbon Dioxide 29, Anion Gap 11, BUN 13, Creatinine 1.2, Est GFR ( Amer) > 60, Est GFR (Non- Af Amer) > 60, Random Glucose 117 H, Calcium 9.1, Total Bilirubin 0.5, AST 21, ALT 22, Alkaline Phosphatase 75, Total Protein 7.3, Albumin 3.6, Globulin 3.8, Albumin/Globulin Ratio 0.9 L 09/15/17 12:56: PT 12.8 H, INR 1.16 H, APTT 33.3 09/15/17 12:56: WBC 14.6 H D, RBC 4.13, Hgb 9.8 L, Hct 32.0 L, MCV 77.5 L, MCH 23.7 L, MCHC 30.6 L, RDW 19.4 H, Plt Count 471 H, MPV 9.1, Gran % 72.6 H, Lymph % (Auto) 14.5 L, [place] % (Auto) 5.6, Eos % (Auto) 7.0 H, Baso % (Auto) 0.3, Gran # 10.63 H, Lymph # 2.1, [place] # 0.8 H, Eos # 1.0 H, Baso # 0.04 - RAD Interpretation Radiology Orders: 09/15/17 12:48 CHEST PORTABLE [RAD] Stat 09/15/17 14:23 DUPLEX LOWER EXTRM VEIN BILAT [US] Stat - Medication Orders Current Medication Orders: Albuterol/Ipratropium (Duoneb 3 Mg/0.5 Mg (3 Ml) Ud) 3 ml IH Q4H PRN PRN Reason: Shortness of Breath Stop: 09/15/17 23:01 Albuterol/Ipratropium (Duoneb 3 Mg/0.5 Mg (3 Ml) Ud) 3 ml IH Q6H PRN PRN Reason: Shortness of Breath Stop: 09/16/17 03:31 Aspirin (Aspirin Chewable) 81 mg PO DAILY [facility]VEL Clopidogrel Bisulfate (Plavix) 75 mg PO DAILY [facility] Famotidine (Pepcid) 20 mg PO 1000,2200 [facility] Vancomycin HCl (Vancomycin 1gm) 1 gm in 250 mls @ 167 mls/hr IVPB Q12H [facility]EL PRN Reason: Protocol Piperacillin Sod/Tazobactam Sod (Zosyn 3.375 In Ns 100ml) 100 mls @ 200 mls/hr IVPB Q6 [facility]EL PRN Reason: Protocol Stop: 09/16/17 00:29 Nicotine (Nicoderm Cq) 1 patch TD DAILY MARVEL Discontinued Medications Piperacillin Sod/Tazobactam Sod (Zosyn 4.5 Gm In Ns 100ml) 4.5 gm in 100 mls @ 200 mls/hr IVPB STAT STA PRN Reason: Protocol Stop: 09/15/17 14:45 Last Admin: 09/15/17 14:31 Dose: 200 mls/hr eMAR Start Stop Document 09/15/17 14:31 SE (Rec: 09/15/17 14:31 SE [id number]) Intravenous Solution Start Date 09/15/17 Start Time 14:31 Morphine Sulfate (Morphine) 4 mg IVP STAT STA Stop: 09/15/17 13:05 Last Admin: 09/15/17 13:11 Dose: 4 mg IVP Administration Document 09/15/17 13:11 SE (Rec: 09/15/17 13:11 SE [id number]) Charges for Administration # of IVP Administrations 1 Morphine Sulfate (Morphine) 2 mg IVP STAT STA Stop: 09/15/17 13:36 Last Admin: 09/15/17 13:37 Dose: 2 mg Comments: med not scanning, checked with ODIN Ceballos RN IVP Administration Document 09/15/17 13:37 SE (Rec: 09/15/17 13:37 SE [id number]) Charges for Administration # of IVP Administrations 1 Disposition/Present on Arrival - Present on Arrival Any Indicators Present on Arrival: No History of DVT/PE: No History of Uncontrolled Diabetes: No Urinary Catheter: No History of Decub. Ulcer: No History Surgical Site Infection Following: Orthopedic Procedures, None - Disposition Have Diagnosis and Disposition been Completed?: Yes Diagnosis: Leukocytosis, Foot pain, PVD (peripheral vascular disease) Disposition: HOSPITALIZED Disposition Time: 14:24 Patient Plan: Admission Condition: GUARDED
[2017-09-15] MEDS ORDERED: Morphine 5 MG/ML SYRINGE IVP STA ×2 (13:04→13:35)
[2017-09-15 13:09] LABS: BASO # 0.04 K/mm3 (0.0-2.0); BASO % 0.3 % (0.0-3.0); GRAN # 10.63 (1.4-6.5); GRAN % 72.6 % (50.0-68.0); LYMPH # 2.1 (1.2-3.4); LYMPH % 14.5 % (22.0-35.0); MEAN CELL VOLUME 77.5 fl (80.0-105.0); MEAN CORPUSCULAR HEMOGLOBIN 23.7 pg (25.0-35.0); MEAN CORPUSCULAR HGB CONC 30.6 g/dl (31.0-37.0); MEAN PLATELET VOLUME 9.1 fl (7.0-11.0); MONO # 0.8 (0.1-0.6); MONO % 5.6 % (1.0-6.0); RED CELL DISTRIBUTION WIDTH 19.4 % (11.5-14.5); WHITE BLOOD COUNT 14.6 10^3/ul (4.5-11.0)
[2017-09-15 13:19] LABS: ALB/GLOB RATIO 0.9 (1.1-1.8); ALKALINE PHOSPHATASE 75 U/L (38-126); ALT/SGPT 22 U/L (7-56); AST/SGOT 21 U/L (17-59); BILIRUBIN,TOTAL 0.5 mg/dL (0.2-1.3); BLOOD UREA NITROGEN 13 mg/dL (7-21); CALCIUM 9.1 mg/dL (8.4-10.5); CARBON DIOXIDE 29 mmol/L (21-33); CHLORIDE 103 mmol/L (98-107); GFR AFRICAN-AMERICAN > 60; GLUCOSE,RANDOM 117 mg/dL (70-110); POTASSIUM 4.4 mmol/L (3.6-5.0); SODIUM 138 mmol/L (132-148); TOTAL PROTEIN 7.3 g/dL (5.8-8.3)
[2017-09-15 13:24] LABS: INR 1.16 (0.93-1.08); PARTIAL THROMBOPLASTIN TIME 33.3 Seconds (25.1-36.5)
[2017-09-15] MEDS ORDERED: Morphine 2 mg/ml ISec ONE (13:37)
[2017-09-15] MEDS ORDERED: Piperacill/Tazo 4.5gm in NS 4.5 GM/100 ML BAG IVPB STA (14:16)
--- NOTE | 2017-09-15 14:20 | RAD ---
HISTORY: Pneumonia. Portable study 13:16. COMPARISON: 11/29/2016. FINDINGS: LUNGS: No active pulmonary disease. PLEURA: No significant pleural effusion identified, no pneumothorax apparent. CARDIOVASCULAR: Normal. OSSEOUS STRUCTURES: No significant abnormalities. VISUALIZED UPPER ABDOMEN: Normal. OTHER FINDINGS: None. IMPRESSION: No active disease. No significant interval change compared to the prior examination(s).
[2017-09-15] MEDS ORDERED: Albuterol-Ipratrop 3 mg / 0.5 (3 ml) UD IH PRN ×2 (14:56→15:16)
--- NOTE | 2017-09-15 16:04 | CP.PCM.HP ---
<Devon Vital - Last Filed: 09/15/17 16:43> History of Present Illness - History of Present Illness History of Present Illness: Mr. Pascal is a 62yo Male with PMH PAD s/p L SFA revascularization and L external iliac stent placement in 07/2017, cellulitis, HTN, renal stones, asthma, tobacco and cocaine/opiate use and migraines who presented to the ED for R toe pain x1 week. Pt had debridement for his L lateral malleolus by Dr. Sanchez on 09/09/17. He denies trauma, fever, chills, CP, SOB, n/v/d numbness/ tingling. Pt is unable to walk more than a few steps before experiencing pain in his legs. The patient also complains numbness tingling in the bottom of his feet, which has been happening for months. He denies having history of diabetes , increased thirst or urinary frequency. Per Dr. Harp, the pt did not follow up with him after last d/c for renewing ASA and Plavix. 12-pt ROS was reviewed and is otherwise unremarkable. In ED, EKG was NSR and CXR was unremarkable. Pain was controlled by Morphine. Zosyn x1 was given. PMH: as above Home meds: [place] [facility], pt is only taking opiates All: NKDA SH: Heavy smoker (1ppd x >30yrs, but trying to cut down), denies alcohol or drug use FH: Mom- DM, HTN PMD: Dr. Hakan Harp Present on Admission - Present on Admission Any Indicators Present on Admission: No History of DVT/PE: No History of Uncontrolled Diabetes: No Urinary Catheter: No Decubitus Ulcer Present: No Review of Systems - Review of Systems All systems: reviewed and no additional remarkable complaints except (as per HPI ) Past Patient History - Infectious Disease Hx of Infectious Diseases: None - Tetanus Immunizations Tetanus Immunization: Unknown - Past Social History Smoking Status: Heavy Smoker > 10 Cigarettes Daily Alcohol: None Drugs: Denies Home Situation {Lives}: With Family - CARDIAC Hx Cardiac Disorders: Yes Hx Hypertension: Yes Hx Peripheral Vascular Disease: Yes - PULMONARY Hx Respiratory Disorders: Yes Hx Asthma: Yes - NEUROLOGICAL Hx Neurological Disorder: Yes Hx Migraine: Yes - HEENT Hx HEENT Problems: No - RENAL Hx Chronic Kidney Disease: Yes Hx Kidney Stones: Yes - ENDOCRINE/METABOLIC Hx Endocrine Disorders: No - HEMATOLOGICAL/ONCOLOGICAL Hx Blood Disorders: Yes Hx Anemia: Yes - INTEGUMENTARY Hx Dermatological Problems: Yes Hx Cellulitis: Yes - MUSCULOSKELETAL/RHEUMATOLOGICAL Hx Musculoskeletal Disorders: No - GASTROINTESTINAL Hx Gastrointestinal Disorders: No - GENITOURINARY/GYNECOLOGICAL Hx Genitourinary Disorders: No - PSYCHIATRIC Hx Psychophysiologic Disorder: Yes Hx Substance Use: Yes - SURGICAL HISTORY Hx Surgeries: Yes Hx Angiogram: Yes Hx Angioplasty: Yes (L external iliac ) Other/Comment: stent placement to left groin - ANESTHESIA Hx Anesthesia Reactions: No Hx Malignant Hyperthermia: No Meds Allergies/Adverse Reactions: Allergies Allergy/AdvReac Type Severity Reaction Status Date / Time No Known Allergies Allergy Verified 09/15/17 12:33 Physical Exam - Constitutional Appears: Well, Non-toxic, No Acute Distress - Head Exam Head Exam: ATRAUMATIC, NORMAL INSPECTION, NORMOCEPHALIC - Eye Exam Eye Exam: EOMI, Normal appearance, PERRL Pupil Exam: NORMAL ACCOMODATION - ENT Exam ENT Exam: Mucous Membranes Moist, Normal Exam - Neck Exam Neck exam: Positive for: Normal Inspection - Respiratory Exam Respiratory Exam: Clear to Auscultation Bilateral, NORMAL BREATHING PATTERN. absent: Rales, Rhonchi, Wheezes, Respiratory Distress - Cardiovascular Exam Cardiovascular Exam: RRR, +S1, +S2. absent: Gallop, JVD, Rubs, Systolic Murmur - GI/Abdominal Exam GI & Abdominal Exam: Normal Bowel Sounds, Soft. absent: Distended, Tenderness - Extremities Exam Extremities exam: Positive for: tenderness. Negative for: calf tenderness, pedal edema Additional comments: L lateral maleoli ulcer (3" diameter) R foot 2nd toe looks necrotic pedal pulses not detected by hand or doppler - Back Exam Back exam: NORMAL INSPECTION - Neurological Exam Neurological exam: Alert, Oriented x3 - Psychiatric Exam Psychiatric exam: Normal Affect, Normal Mood - Skin Skin Exam: Normal Color, Warm Additional comments: L Lateral maleolus ulcer Results - Vital Signs Recent Vital Signs: Last Vital Signs Temp 98.0 F 09/15/17 13:05 Pulse 98 H 09/15/17 13:05 Resp 18 09/15/17 13:05 BP 121/64 09/15/17 13:05 Pulse Ox 96 09/15/17 13:05 - Labs Result Diagrams: 09/15/17 12:56 09/15/17 12:56 Assessment & Plan - Assessment and Plan (Free Text) Assessment: Mr. Pascal is a 62yo Male with PMH PAD s/p L SFA revascularization and L external iliac stent placement in 07/2017, cellulitis, HTN, renal stones, asthma, tobacco and cocaine/opiate use and migraines who presented to the ED for R 2nd toe pain x1 week and L lateral maleoli ulcer and assessing PAD severity. Plan: 1. PAD in RLE w/ weak pulses and painful R toe - f/u reading for LE arterial doppler - s/p L SFA revascularization and L external iliac stent placement in 07/2017 - started on ASA and Plavix (pt was non compliant at home, per Dr. Harp) - f/u ESR and CRP - Morphine PRN for pain - colace - podiatry consulted, recs appreciated 2. LLE ulcer s/p debridement last week - podiatry consulted - f/u wound, blood and urine culture - procalcitonin ordered - cont Vanc and Zosyn - cont Santyl - ID consulted, recs appreciated 3. poly substance abuse - f/u drug screen - non-opioid pain management was attempted with Motrin and Tylenol combined to avoid need for opiates however pt refused - Ativan PRN 4. tobacco abuse - nicoderm patch 5. Hx anemia - f/u iron panel, ferritin, transferrin, folate, vit B12 - trend H/H - start Feosol w/ colace 6. Hx asthma - duoneb PRN 7. Hx Nephrolithiasis - s/p stents placed and removed in 2015 - maintain hydration - monitor Cr and urine output Pepcid/Plavix HHD Patient was seen, examined and discussed with attending, Dr. Briseida Vital - Date & Time Date: 09/15/17 Time: 16:57 <Natan Goins - Last Filed: 09/16/17 16:42> Results - Vital Signs Recent Vital Signs: Last Vital Signs Temp 98.4 F 09/16/17 08:10 Pulse 92 H 09/16/17 08:10 Resp 20 09/16/17 08:10 BP 137/87 09/16/17 08:10 Pulse Ox 94 L 09/16/17 08:10 - Labs Result Diagrams: 09/16/17 06:00 09/16/17 06:00 Labs: Laboratory Results - last 24 hr 09/16/17 09/16/17 09/16/17 00:30 06:00 06:00 WBC 12.7 H RBC 4.02 Hgb 9.2 L Hct 31.1 L MCV 77.4 L MCH 22.9 L MCHC 29.6 L RDW 19.3 H Plt Count 501 H MPV 9.2 Gran % 65.7 Lymph % (Auto) 18.1 L [place] % (Auto) 6.1 H Eos % (Auto) 9.7 H Baso % (Auto) 0.4 Gran # 8.36 H Lymph # 2.3 [place] # 0.8 H Eos # 1.2 H Baso # 0.05 ESR 90 H Sodium 139 Potassium 4.4 Chloride 106 Carbon Dioxide 27 Anion Gap 10 BUN 16 Creatinine 1.1 Est GFR ( Amer) > 60 Est GFR (Non-Af Amer) > 60 Random Glucose 98 Calcium 8.9 Phosphorus 3.6 Magnesium 2.2 Total Bilirubin 0.3 AST 18 ALT 21 Alkaline Phosphatase 78 Total Protein 7.1 Albumin 3.3 Globulin 3.8 Albumin/Globulin Ratio 0.9 L Urine Color Yellow Urine Appearance Clear Urine pH 7.5 Ur Specific [place] 1.015 Urine Protein Negative Urine Glucose (UA) Negative Urine Ketones Negative Urine Blood Negative Urine Nitrate Negative Urine Bilirubin Negative Urine Urobilinogen 0.2 Ur Leukocyte Esterase Negative Urine Opiates Screen Urine Methadone Screen Ur Barbiturates Screen Ur Phencyclidine Scrn Ur Amphetamines Screen U Benzodiazepines Scrn U Oth Cocaine Metabols U Cannabinoids Screen 09/16/17 06:30 WBC RBC Hgb Hct MCV MCH MCHC RDW Plt Count MPV Gran % Lymph % (Auto) [place] % (Auto) Eos % (Auto) Baso % (Auto) Gran # Lymph # [place] # Eos # Baso # ESR Sodium Potassium Chloride Carbon Dioxide Anion Gap BUN Creatinine Est GFR ( Amer) Est GFR (Non-Af Amer) Random Glucose Calcium Phosphorus Magnesium Total Bilirubin AST ALT Alkaline Phosphatase Total Protein Albumin Globulin Albumin/Globulin Ratio Urine Color Urine Appearance Urine pH Ur Specific [place] Urine Protein Urine Glucose (UA) Urine Ketones Urine Blood Urine Nitrate Urine Bilirubin Urine Urobilinogen Ur Leukocyte Esterase Urine Opiates Screen Positive H Urine Methadone Screen Negative Ur Barbiturates Screen Negative Ur Phencyclidine Scrn Negative Ur Amphetamines Screen Negative U Benzodiazepines Scrn Negative U Oth Cocaine Metabols Positive H U Cannabinoids Screen Negative Attending/Attestation - Attestation I have personally seen and examined this patient.: Yes I have fully participated in the care of the patient.: Yes I have reviewed all pertinent clinical information: Yes Notes (Text): 09/16/17 16:38 Attending note; Patient seen and examined with resident in ER. Patient is a 62-year-old Male with past medical history of peripheral vascular disease, status post revascularization and L external iliac stent placement in 07/2017, cellulitis, HTN, renal stones, asthma, tobacco and cocaine /opiate use and migraines is admitted with significant right lower extremity pain. Patient has chronic nonhealing wound in the left ankle area. Right second toe with significant pain/dark spots. Arterial duplex ordered. Preliminary results showed decreased right RG at 0.6. Case discussed with interventional radiologist Dr. Emmanuel Dickens in detail. Plan for angiography on Monday. Smoking; started on NicoDerm patch. Complete smoking cessation is strongly advised. Urine drug screen ordered. Chronic opiate dependency; continue IV morphine when necessary. Strongly advised to decrease and stop opiate use. Podiatry evaluation requested. Cellulitis; continue vancomycin and Zosyn. ID evaluation requested. The diagnosis and treatment options discussed with patient and patient's in detail. Case discussed with patient's PMD Dr. Harp in detail.
[2017-09-15 16:10] LABS: IRON 20 ug/dL (45-180)
[2017-09-15] MEDS: Vancomycin 1gm in NS 250ml 1 GM/250 ML BAG IVPB SCH (16:30)
[2017-09-15] MEDS: Morphine 2 mg/ml ISec IVP PRN ×2 (16:34→23:53)
[2017-09-15 17:31] VITALS: BMI 26.9
[2017-09-15] MEDS ORDERED: Pneumococcal 23-Valent Vaccine IM ONE (17:31)
[2017-09-15] MEDS ORDERED: Influenza Vaccine 60 mcg/0.5 mL SYR (4YR UP) IM ONE (17:31)
[2017-09-15] MEDS: Piperacillin/Tazobact 3.375 gm 100 ML IVPB SCH ×2 (17:38→23:52)
[2017-09-15] MEDS: Lactobacillus Acidophilus 500 MU Cap PO SCH (18:07)
[2017-09-15] MEDS: Bacitracin Ointment 30 GM TUBE TOP SCH (18:16)
[2017-09-15] MEDS ORDERED: Morphine 2 mg/ml ISec IVP ONE (20:27)
[2017-09-15 20:51] LABS: TRANSFERRIN 243.64 mg/dL (206-381)
--- NOTE | 2017-09-15 23:00 | CARD ---
APPROVED REPORT EKG Measurement Heart [id number] <Conclusion> Sinus tachycardia Otherwise normal ECG
[2017-09-16 00:38] LABS: PH,URINE 7.5 (4.7-8.0); URINE BILIRUBIN NEGATIVE (NEGATIVE); URINE BLOOD NEGATIVE (NEGATIVE); URINE GLUCOSE (UA) NEGATIVE (NEGATIVE); URINE KETONE NEGATIVE (NEGATIVE); URINE LEUKOCYTE ESTERASE NEGATIVE Leu/uL (NEGATIVE); URINE PROTEIN NEGATIVE mg/dL (<30 mg/dL); URINE UROBILINOGEN 0.2 E.U./dL (<1 E.U./dL)
[2017-09-16 00:39] LABS: URINE APPEARANCE CLEAR (CLEAR); URINE COLOR YELLOW (YELLOW)
[2017-09-16 00:58] VITALS: RESP 20
[2017-09-16] MEDS: Vancomycin 1gm in NS 250ml 1 GM/250 ML BAG IVPB SCH ×2 (06:03→16:15)
[2017-09-16] MEDS: Morphine 2 mg/ml ISec IVP PRN ×5 (06:03→20:15)
[2017-09-16 06:34] LABS: BASO # 0.05 K/mm3 (0.0-2.0); BASO % 0.4 % (0.0-3.0); EOS # 1.2 (0.0-0.7); EOS % 9.7 % (1.5-5.0); GRAN # 8.36 (1.4-6.5); GRAN % 65.7 % (50.0-68.0); HEMATOCRIT 31.1 % (42.0-52.0); LYMPH # 2.3 (1.2-3.4); LYMPH % 18.1 % (22.0-35.0); MEAN CELL VOLUME 77.4 fl (80.0-105.0); MEAN CORPUSCULAR HEMOGLOBIN 22.9 pg (25.0-35.0); MEAN CORPUSCULAR HGB CONC 29.6 g/dl (31.0-37.0); MEAN PLATELET VOLUME 9.2 fl (7.0-11.0); MONO # 0.8 (0.1-0.6); MONO % 6.1 % (1.0-6.0); RED CELL DISTRIBUTION WIDTH 19.3 % (11.5-14.5); WHITE BLOOD COUNT 12.7 10^3/ul (4.5-11.0)
[2017-09-16 07:01] LABS: ALB/GLOB RATIO 0.9 (1.1-1.8); ALKALINE PHOSPHATASE 78 U/L (38-126); ALT/SGPT 21 U/L (7-56); AST/SGOT 18 U/L (17-59); BILIRUBIN,TOTAL 0.3 mg/dL (0.2-1.3); BLOOD UREA NITROGEN 16 mg/dL (7-21); CALCIUM 8.9 mg/dL (8.4-10.5); CARBON DIOXIDE 27 mmol/L (21-33); CHLORIDE 106 mmol/L (98-107); GFR AFRICAN-AMERICAN > 60; GLUCOSE,RANDOM 98 mg/dL (70-110); MAGNESIUM 2.2 mg/dL (1.7-2.2); PHOSPHOROUS 3.6 mg/dL (2.5-4.5); POTASSIUM 4.4 mmol/L (3.6-5.0); SODIUM 139 mmol/L (132-148); TOTAL PROTEIN 7.1 g/dL (5.8-8.3)
--- NOTE | 2017-09-16 08:59 | CP.PCM.CON ---
<Malu Carson - Last Filed: 09/16/17 08:55> History of Present Illness - History of Present Illness History of Present Illness: Consult Note for Dr. Fonseca: 62 y.o male with PMH of HTN, migraines, asthma, COPD consulted for left ankle open ulceration 7 days s/p debridement. Patient was seen at bedside this morning with attending Dr. Fonseca. Patient is well known to podiatry for joint terminal attack controller treatment of left ankle ulceration which appears to be improving. Patient admits to pain in the left ankle ulceration site. No other pedal complaints reported. Denies n/v/sob/cp/chills or f. PSH: none SH: 1 ppd >40 years MEDS: see medication list ALL: NKDA FH: none Past Patient History - Infectious Disease Hx of Infectious Diseases: None - Tetanus Immunizations Tetanus Immunization: Unknown - Past Social History Smoking Status: Heavy Smoker > 10 Cigarettes Daily Alcohol: None Drugs: Denies Home Situation {Lives}: With Family - CARDIAC Hx Cardiac Disorders: Yes Hx Hypertension: Yes Hx Peripheral Vascular Disease: Yes - PULMONARY Hx Respiratory Disorders: Yes Hx Asthma: Yes - NEUROLOGICAL Hx Neurological Disorder: Yes Hx Migraine: Yes - HEENT Hx HEENT Problems: No - RENAL Hx Chronic Kidney Disease: Yes Hx Kidney Stones: Yes - ENDOCRINE/METABOLIC Hx Endocrine Disorders: No - HEMATOLOGICAL/ONCOLOGICAL Hx Blood Disorders: Yes Hx Anemia: Yes - INTEGUMENTARY Hx Dermatological Problems: Yes Hx Cellulitis: Yes - MUSCULOSKELETAL/RHEUMATOLOGICAL Hx Musculoskeletal Disorders: No - GASTROINTESTINAL Hx Gastrointestinal Disorders: No - GENITOURINARY/GYNECOLOGICAL Hx Genitourinary Disorders: No - PSYCHIATRIC Hx Psychophysiologic Disorder: Yes Hx Substance Use: Yes - SURGICAL HISTORY Hx Surgeries: Yes Hx Angiogram: Yes Hx Angioplasty: Yes (L external iliac ) Other/Comment: stent placement to left groin - ANESTHESIA Hx Anesthesia Reactions: No Hx Malignant Hyperthermia: No Meds Allergies/Adverse Reactions: Allergies Allergy/AdvReac Type Severity Reaction Status Date / Time No Known Allergies Allergy Verified 09/15/17 12:33 - Medications Medications: Current Medications Acetaminophen (Tylenol 325mg Tab) 1,000 mg PO Q6H PRN PRN Reason: Pain, moderate (4-7) Ascorbic Acid (Vitamin C 500 Mg Tab) 500 mg PO DAILY [facility] Last Admin: 09/15/17 18:08 Dose: Not Given Aspirin (Aspirin Chewable) 81 mg PO DAILY [facility] Last Admin: 09/15/17 17:32 Dose: Not Given Bacitracin (Bacitracin) 0 gm TOP DAILY [facility] Last Admin: 09/15/17 18:16 Dose: 1 applic Clopidogrel Bisulfate (Plavix) 75 mg PO DAILY [facility] Last Admin: 09/15/17 18:08 Dose: Not Given Collagenase (Santyl) 0 gm TOP DAILY [facility] Docusate Sodium (Colace) 100 mg PO TID [facility] Last Admin: 09/15/17 18:07 Dose: Not Given Famotidine (Pepcid) 20 mg PO 1000,2200 [facility] Last Admin: 09/15/17 23:52 Dose: 20 mg Ferrous Sulfate (Feosol) 324 mg PO TID [facility] Last Admin: 09/15/17 18:08 Dose: Not Given Vancomycin HCl (Vancomycin 1gm) 1 gm in 250 mls @ 167 mls/hr IVPB Q12H [facility] PRN Reason: Protocol Last Admin: 09/16/17 06:03 Dose: 167 mls/hr Ibuprofen (Motrin Tab) 400 mg PO Q6H PRN PRN Reason: Pain, moderate (4-7) Last Admin: 09/16/17 03:11 Dose: 400 mg Lactobacillus Acidophilus (Bacid Acidophilus) 1 cap PO BID [facility] Last Admin: 09/15/17 18:07 Dose: Not Given Lorazepam (Ativan) 1 mg IVP Q6H PRN; Protocol PRN Reason: Anxiety Last Admin: 09/16/17 02:28 Dose: 1 mg Morphine Sulfate (Morphine) 2 mg IVP Q6H PRN PRN Reason: Pain, severe (8-10) Last Admin: 09/16/17 06:03 Dose: 2 mg Nicotine (Nicoderm Cq) 1 patch TD DAILY [facility] Zinc Sulfate (Zinc Sulfate 220 Mg Cap) 220 mg PO DAILY [facility] Last Admin: 09/15/17 18:08 Dose: Not Given Physical Exam - Constitutional Appears: Well, Non-toxic, No Acute Distress - Head Exam Head Exam: ATRAUMATIC - Extremities Exam Additional comments: Bilateral Lower extremity exam: DERM: LEFT: Open ulceration noted to the left ankle lateral malleolus measuring approximately 4cm x 3cm x .2cm, wound base is 90% fibrotic and 10% granular with eschar slough noted centrally, periwound is slightly macerated but intact, mild erythema noted to the periwound, no increase warmth, no streaking, no purulence, no active drainage, no odor, no tunneling, no undermining noted or probe to bone noted. No fluctuance or abscess appreciated at time of visit. RIGHT: Ecchymosis notd to distal aspect of 2nd digit measuring approximately 0.4cm x 0.4cm. No open wound is noted. No erythema is noted. No drainage is noted, no mal-odor noted. no PTB. Vasc: Bilateral DP and PT not papable, temperature is cool to cool from proximal to distal toes, CFT >4 seconds, no edema noted Ortho: severe pain with palpation of skin surrounding ulceration site, MM is 5/ 5 in dorsiflexion, plantarflexion, eversion, and inversion Neuro: gross sensation intact bilaterally - Neurological Exam Neurological exam: Alert, Oriented x3 - Psychiatric Exam Psychiatric exam: Normal Affect, Normal Mood - Skin Skin Exam: Normal Color, Warm Results - Vital Signs Recent Vital Signs: Last Vital Signs Temp 98.4 F 09/16/17 08:10 Pulse 92 H 09/16/17 08:10 Resp 20 09/16/17 08:10 BP 137/87 09/16/17 08:10 Pulse Ox 94 L 09/16/17 08:10 - Labs Result Diagrams: 09/16/17 06:00 09/16/17 06:00 Labs: Laboratory Results - last 24 hr 09/16/17 09/16/17 09/16/17 00:30 06:00 06:00 WBC 12.7 H RBC 4.02 Hgb 9.2 L Hct 31.1 L MCV 77.4 L MCH 22.9 L MCHC 29.6 L RDW 19.3 H Plt Count 501 H MPV 9.2 Gran % 65.7 Lymph % (Auto) 18.1 L [place] % (Auto) 6.1 H Eos % (Auto) 9.7 H Baso % (Auto) 0.4 Gran # 8.36 H Lymph # 2.3 [place] # 0.8 H Eos # 1.2 H Baso # 0.05 Sodium 139 Potassium 4.4 Chloride 106 Carbon Dioxide 27 Anion Gap 10 BUN 16 Creatinine 1.1 Est GFR ( Amer) > 60 Est GFR (Non-Af Amer) > 60 Random Glucose 98 Calcium 8.9 Phosphorus 3.6 Magnesium 2.2 Total Bilirubin 0.3 AST 18 ALT 21 Alkaline Phosphatase 78 Total Protein 7.1 Albumin 3.3 Globulin 3.8 Albumin/Globulin Ratio 0.9 L Urine Color Yellow Urine Appearance Clear Urine pH 7.5 Ur Specific [place] 1.015 Urine Protein Negative Urine Glucose (UA) Negative Urine Ketones Negative Urine Blood Negative Urine Nitrate Negative Urine Bilirubin Negative Urine Urobilinogen 0.2 Ur Leukocyte Esterase Negative Urine Opiates Screen Urine Methadone Screen Ur Barbiturates Screen Ur Phencyclidine Scrn Ur Amphetamines Screen U Benzodiazepines Scrn U Oth Cocaine Metabols U Cannabinoids Screen 09/16/17 06:30 WBC RBC Hgb Hct MCV MCH MCHC RDW Plt Count MPV Gran % Lymph % (Auto) [place] % (Auto) Eos % (Auto) Baso % (Auto) Gran # Lymph # [place] # Eos # Baso # Sodium Potassium Chloride Carbon Dioxide Anion Gap BUN Creatinine Est GFR ( Amer) Est GFR (Non-Af Amer) Random Glucose Calcium Phosphorus Magnesium Total Bilirubin AST ALT Alkaline Phosphatase Total Protein Albumin Globulin Albumin/Globulin Ratio Urine Color Urine Appearance Urine pH Ur Specific [place] Urine Protein Urine Glucose (UA) Urine Ketones Urine Blood Urine Nitrate Urine Bilirubin Urine Urobilinogen Ur Leukocyte Esterase Urine Opiates Screen Positive H Urine Methadone Screen Negative Ur Barbiturates Screen Negative Ur Phencyclidine Scrn Negative Ur Amphetamines Screen Negative U Benzodiazepines Scrn Negative U Oth Cocaine Metabols Positive H U Cannabinoids Screen Negative Assessment & Plan - Assessment and Plan (Free Text) Assessment: 62 yo male patient with PMH of HTN, migraines, asthma, COPD with left ankle ulceration likely secondary to 1) venous stasis 2) poor arterial supply Plan: Pt examined and seen. Discussed plan in detail with attending Dr. Fonseca. Chart, labs, vitals reviewed (afebrile, WBC=12.7down from yesterday (WBC=14.6)) Left leg Wound culture taken. Wound cleansed with saline solution, dressed with saline wet to dry, DSD, ABD, and light Kerlix. Ordered Santyl- will be applied with dressing changes tomorrow Bactroban ordered to be applied to right 2nd digit X-ray bilateral ordered Continue Abx per ID Continue pain management per primary Will continue to follow while in house <Arloro,Vincent - Last Filed: 09/20/17 11:13> Results - Vital Signs Recent Vital Signs: Last Vital Signs Temp 97.6 F 09/18/17 07:00 Pulse 110 H 09/18/17 07:00 Resp 20 09/18/17 07:00 BP 126/92 H 09/18/17 07:00 Pulse Ox 96 09/18/17 07:00 - Labs Result Diagrams: 09/18/17 08:40 09/18/17 08:40 Attending/Attestation - Attestation I have personally seen and examined this patient.: Yes I have fully participated in the care of the patient.: Yes I have reviewed all pertinent clinical information: Yes
[2017-09-16] MEDS ORDERED: Morphine 2 mg/ml ISec IVP STA (09:26)
[2017-09-16] MEDS: Lactobacillus Acidophilus 500 MU Cap PO SCH ×2 (09:43→17:20)
[2017-09-16] MEDS: Bacitracin Ointment 30 GM TUBE TOP SCH (09:43)
[2017-09-16] MEDS ORDERED: Collagenase 250 Units/gm Ointment(30 gm) TOP SCH (10:00)
[2017-09-16] MEDS: Collagenase 250 Units/gm Ointment(30 gm) TOP SCH (11:00)
[2017-09-16] MEDS: cefTRIAXone 1 gm 1 GM/100 ML BAG IVPB SCH (11:49)
--- NOTE | 2017-09-16 11:58 | CP.PCM.PN ---
<Yves Jason - Last Filed: 09/16/17 16:04> Subjective - Date & Time of Evaluation Date of Evaluation: 09/16/17 Time of Evaluation: 07:00 - Subjective Subjective: Patient was seen and examined at bedside laying on his right side. Patient states he couldn't sleep all night due to pain in his left foot. Denies shortness of breath, abdominal pain, chest pain, dizziness, weakness, cough, nausea, vomiting, diarrhea. Denies recent opioid, cocaine, alcohol abuse. Objective - Vital Signs/Intake and Output Vital Signs (last 24 hours): Temp Pulse Resp BP Pulse Ox 98.4 F 92 H 20 137/87 94 L 09/16/17 08:10 09/16/17 08:10 09/16/17 08:10 09/16/17 08:10 09/16/17 08:10 Intake and Output: 09/16/17 09/16/17 06:59 18:59 Intake Total 940 Balance 940 - Medications Medications: Current Medications Acetaminophen (Tylenol 325mg Tab) 1,000 mg PO Q6H PRN PRN Reason: Pain, moderate (4-7) Ascorbic Acid (Vitamin C 500 Mg Tab) 500 mg PO DAILY [facility] Last Admin: 09/16/17 09:44 Dose: Not Given Aspirin (Aspirin Chewable) 81 mg PO DAILY [facility] Last Admin: 09/16/17 09:43 Dose: Not Given Bacitracin (Bacitracin) 0 gm TOP DAILY [facility] Last Admin: 09/16/17 09:43 Dose: 1 applic Clopidogrel Bisulfate (Plavix) 75 mg PO DAILY [facility] Last Admin: 09/16/17 09:44 Dose: Not Given Collagenase (Santyl) 3 gm TOP DAILY [facility] Last Admin: 09/16/17 11:00 Dose: Not Given Docusate Sodium (Colace) 100 mg PO TID [facility] Last Admin: 09/16/17 09:43 Dose: Not Given Famotidine (Pepcid) 20 mg PO 1000,2200 [facility] Last Admin: 09/16/17 09:42 Dose: 20 mg Ferrous Sulfate (Feosol) 324 mg PO TID [facility] Last Admin: 09/16/17 09:43 Dose: Not Given Vancomycin HCl (Vancomycin 1gm) 1 gm in 250 mls @ 167 mls/hr IVPB Q12H [facility] PRN Reason: Protocol Last Admin: 09/16/17 06:03 Dose: 167 mls/hr Ceftriaxone Sodium (Rocephin 1 Gram Ivpb) 1 gm in 100 mls @ 100 mls/hr IVPB DAILY [facility] PRN Reason: Protocol Lactobacillus Acidophilus (Bacid Acidophilus) 1 cap PO BID [facility] Last Admin: 09/16/17 09:43 Dose: Not Given Lorazepam (Ativan) 1 mg IVP Q6H PRN; Protocol PRN Reason: Anxiety Last Admin: 09/16/17 02:28 Dose: 1 mg Morphine Sulfate (Morphine) 2 mg IVP Q3 PRN PRN Reason: Pain, severe (8-10) Nicotine (Nicoderm Cq) 1 patch TD DAILY [facility] Last Admin: 09/16/17 09:43 Dose: Not Given Sodium Chloride ([place] Nasal Odem) 0 ml NS Q2H PRN PRN Reason: Nasal congestion Zinc Sulfate (Zinc Sulfate 220 Mg Cap) 220 mg PO DAILY [facility] Last Admin: 09/16/17 09:44 Dose: Not Given - Labs Labs: 09/16/17 06:00 09/16/17 06:00 PT 12.8 SECONDS (9.4-12.5) H 09/15/17 12:56 INR 1.16 (0.93-1.08) H 09/15/17 12:56 APTT 33.3 Seconds (25.1-36.5) 09/15/17 12:56 - Constitutional Appears: Non-toxic, No Acute Distress - Head Exam Head Exam: ATRAUMATIC, NORMAL INSPECTION, NORMOCEPHALIC - Eye Exam Eye Exam: EOMI, Normal appearance - ENT Exam ENT Exam: Mucous Membranes Moist, Normal Exam - Respiratory Exam Respiratory Exam: Clear to Ausculation Bilateral, NORMAL BREATHING PATTERN - Cardiovascular Exam Cardiovascular Exam: REGULAR RHYTHM, +S1 - GI/Abdominal Exam GI & Abdominal Exam: Soft, Normal Bowel Sounds - Extremities Exam Extremities Exam: Tenderness (left foot: left ankle lateral malleolus wound meausures 4 cm x 3cm; yellow drainage. Right foot: ecchymosis of distal aspect of 2nd and third digit). absent: Pedal Edema - Neurological Exam Neurological Exam: Alert, Awake, CN II-XII Intact, Oriented x3 Assessment and Plan - Assessment and Plan (Free Text) Assessment: Mr. Pascal is a 62yo Male with PMH PAD s/p L SFA revascularization and L external iliac stent placement in 07/2017, cellulitis, HTN, renal stones, asthma, tobacco and cocaine/opiate use and migraines who presented to the ED for R 2nd toe pain x1 week and L lateral maleoli ulcer and assessing PAD severity Plan: 1. PAD in RLE w/ weak pulses and painful R toe - LE arterial doppler; results pending - Continue with ASA and Plavix - ESR ; pending, CRP; >15 - Morphine PRN for pain control - colace - podiatry on board; recommends santyl, bactroband, and continuation of abx - Interventional radiology to do angiogram 09/18, made NPO starting night of 2. LLE ulcer s/p debridement last week - WBC count trending downward - podiatry on board; recommends santyl, bactroband, and continuation of abx - wound, blood and urine culture; results pending - Procalcitonin; 0.09 - cont Vanc and Zosyn - ID consulted, reccs appreciated 3. poly substance abuse -Drug screen; positive for opioids and cocaine -Ativan PRN 4. tobacco abuse - nicoderm patch 5. Hx anemia - iron panel, ferritin, transferrin, folate, vit B12; Iron deficiency anemia - downtrend of H/H - start Feosol w/ colace 6. Hx asthma - duoneb PRN 7. Hx Nephrolithiasis - s/p stents placed and removed in 2015 - maintain hydration - monitor Cr and urine output GI/DVT prophylaxis Pepcid/Plavix Patient was seen, examined and discussed with attending, Dr. Briseida Jason <Natan Goins - Last Filed: 09/16/17 16:47> Objective - Vital Signs/Intake and Output Vital Signs (last 24 hours): Temp Pulse Resp BP Pulse Ox 97.9 F 108 H 20 146/91 H 98 09/16/17 16:41 09/16/17 16:41 09/16/17 16:41 09/16/17 16:41 09/16/17 16:41 Intake and Output: 09/16/17 09/16/17 06:59 18:59 Intake Total 940 Balance 940 - Medications Medications: Current Medications Acetaminophen (Tylenol 325mg Tab) 1,000 mg PO Q6H PRN PRN Reason: Pain, moderate (4-7) Ascorbic Acid (Vitamin C 500 Mg Tab) 500 mg PO DAILY [facility] Last Admin: 09/16/17 09:44 Dose: Not Given Aspirin (Aspirin Chewable) 81 mg PO DAILY [facility] Last Admin: 09/16/17 09:43 Dose: Not Given Bacitracin (Bacitracin) 0 gm TOP DAILY [facility] Last Admin: 09/16/17 09:43 Dose: 1 applic Clopidogrel Bisulfate (Plavix) 75 mg PO DAILY [facility] Last Admin: 09/16/17 09:44 Dose: Not Given Collagenase (Santyl) 3 gm TOP DAILY [facility] Last Admin: 09/16/17 11:00 Dose: Not Given Diphenhydramine HCl (Benadryl) 50 mg PO HS PRN PRN Reason: Insomnia Docusate Sodium (Colace) 100 mg PO TID [facility] Last Admin: 09/16/17 14:14 Dose: Not Given Famotidine (Pepcid) 20 mg PO 1000,2200 [facility] Last Admin: 09/16/17 09:42 Dose: 20 mg Ferrous Sulfate (Feosol) 324 mg PO TID [facility] Last Admin: 09/16/17 14:14 Dose: Not Given Vancomycin HCl (Vancomycin 1gm) 1 gm in 250 mls @ 167 mls/hr IVPB Q12H [facility] PRN Reason: Protocol Last Admin: 09/16/17 06:03 Dose: 167 mls/hr Ceftriaxone Sodium (Rocephin 1 Gram Ivpb) 1 gm in 100 mls @ 100 mls/hr IVPB DAILY [facility] PRN Reason: Protocol Last Admin: 09/16/17 11:49 Dose: 100 mls/hr Lactobacillus Acidophilus (Bacid Acidophilus) 1 cap PO BID [facility] Last Admin: 09/16/17 09:43 Dose: Not Given Lorazepam (Ativan) 1 mg IVP Q6H PRN; Protocol PRN Reason: Anxiety Last Admin: 09/16/17 02:28 Dose: 1 mg Morphine Sulfate (Morphine) 2 mg IVP Q3 PRN PRN Reason: Pain, severe (8-10) Last Admin: 09/16/17 14:13 Dose: 2 mg Nicotine (Nicoderm Cq) 1 patch TD DAILY [facility] Last Admin: 09/16/17 09:43 Dose: Not Given Sodium Chloride ([place] Nasal Odem) 0 ml NS Q2H PRN PRN Reason: Nasal congestion Zinc Sulfate (Zinc Sulfate 220 Mg Cap) 220 mg PO DAILY [facility] Last Admin: 09/16/17 09:44 Dose: Not Given - Labs Labs: 09/16/17 06:00 09/16/17 06:00 PT 12.8 SECONDS (9.4-12.5) H 09/15/17 12:56 INR 1.16 (0.93-1.08) H 09/15/17 12:56 APTT 33.3 Seconds (25.1-36.5) 09/15/17 12:56 Attending/Attestation - Attestation I have personally seen and examined this patient.: Yes I have fully participated in the care of the patient.: Yes I have reviewed all pertinent clinical information, including history, physical exam and plan: Yes Notes (Text): 09/16/17 16:44 Attending note; Patient seen and examined with resident. Patient is a 62-year-old Male with past medical history of peripheral vascular disease, status post revascularization and L external iliac stent placement in 07/2017, cellulitis, HTN, renal stones, asthma, tobacco and cocaine /opiate use and migraines is admitted with significant right lower extremity pain. Left lower extremity cellulitis ;Patient has chronic nonhealing wound in the left ankle area. Continue Rocephin and vancomycin. ID evaluation appreciated. Right second toe with significant pain/dark spots. Arterial duplex ordered. Preliminary results showed decreased right RG at 0.6. Case discussed with interventional radiologist Dr. Emmanuel Dickens in detail. Plan for angiography on Monday. Smoking; started on NicoDerm patch. Complete smoking cessation is strongly advised. Urine drug screen is positive for cocaine. Complete drug abuse cessation is strongly advised. Chronic opiate dependency; continue IV morphine when necessary. Still asking for increased dose of morphine. Currently on morphine 2 mg IV every 3 when necessary. Podiatry evaluation appreciated. Dressing done. Wound culture sent. X-ray ordered. Upon discharge patient will follow-up with PMD .
--- NOTE | 2017-09-16 14:38 | RAD ---
PROCEDURE: Left Ankle Radiographs. HISTORY: left ankle ulceration COMPARISON: None FINDINGS: BONES: No fracture. No osseous erosion or periosteal reaction appreciated. JOINTS: Normal. No osteoarthritis. Ankle mortise maintained. Talar dome intact SOFT TISSUES: The location of the reported soft tissue ulceration is not evident from this examination. OTHER FINDINGS: None. IMPRESSION: Normal left ankle radiographs.
--- NOTE | 2017-09-16 14:39 | RAD ---
PROCEDURE: Right Foot Radiographs. HISTORY: right 2nd and 3rd toe pain/black and blue COMPARISON: None. FINDINGS: BONES: No fracture. No osseous erosion or periosteal reaction appreciated. JOINTS: Hallux valgus. Mild osteoarthritis of the 1st MTP joint. No evidence of arthritis elsewhere. SOFT TISSUES: Normal. OTHER FINDINGS: None. IMPRESSION: Hallux valgus and mild osteoarthritis of the 1st MTP articulation. Otherwise unremarkable.
--- NOTE | 2017-09-16 15:11 | CP.PCM.CON ---
History of Present Illness - History of Present Illness History of Present Illness: 62 year old male with PMH of COPD, significant smoking history, history of staghorn calculus, migraine headaches, asthma, chronic anemia, HTN, history of drug use had SFA revascularization and external iliac stent placement done on the right in July 2017 had his left heel ulcer debridement done recently. He is now complaining of pain again in the right foot, associated with numbness and tingling and sharp pain. He denies animal contacts, no soaking of feet in water, no travel outside of [place] in the past 3 months, no walking barefoot on soil. He also denies fever or chills, no nausea or vomiting, no chest pain, no SOB, no headache or dizziness, no cough or colds, no diarrhea, no dysuria. He was also noted to have leukocytosis in the ED. Infectious Diseases consult is requested to further evaluate and manage. Review of Systems - Review of Systems All systems: reviewed and no additional remarkable complaints except (as per HPI ) Past Patient History - Infectious Disease Hx of Infectious Diseases: None - Tetanus Immunizations Tetanus Immunization: Unknown - Past Social History Smoking Status: Heavy Smoker > 10 Cigarettes Daily Alcohol: None Drugs: Denies Home Situation {Lives}: With Family - CARDIAC Hx Cardiac Disorders: Yes Hx Hypertension: Yes Hx Peripheral Vascular Disease: Yes - PULMONARY Hx Respiratory Disorders: Yes Hx Asthma: Yes - NEUROLOGICAL Hx Neurological Disorder: Yes Hx Migraine: Yes - HEENT Hx HEENT Problems: No - RENAL Hx Chronic Kidney Disease: Yes Hx Kidney Stones: Yes - ENDOCRINE/METABOLIC Hx Endocrine Disorders: No - HEMATOLOGICAL/ONCOLOGICAL Hx Blood Disorders: Yes Hx Anemia: Yes - INTEGUMENTARY Hx Dermatological Problems: Yes Hx Cellulitis: Yes - MUSCULOSKELETAL/RHEUMATOLOGICAL Hx Musculoskeletal Disorders: No - GASTROINTESTINAL Hx Gastrointestinal Disorders: No - GENITOURINARY/GYNECOLOGICAL Hx Genitourinary Disorders: No - PSYCHIATRIC Hx Psychophysiologic Disorder: Yes Hx Substance Use: Yes - SURGICAL HISTORY Hx Surgeries: Yes Hx Angiogram: Yes Hx Angioplasty: Yes (L external iliac ) Other/Comment: stent placement to left groin - ANESTHESIA Hx Anesthesia Reactions: No Hx Malignant Hyperthermia: No Meds Allergies/Adverse Reactions: Allergies Allergy/AdvReac Type Severity Reaction Status Date / Time No Known Allergies Allergy Verified 09/15/17 12:33 - Medications Medications: Current Medications Acetaminophen (Tylenol 325mg Tab) 1,000 mg PO Q6H PRN PRN Reason: Pain, moderate (4-7) Ascorbic Acid (Vitamin C 500 Mg Tab) 500 mg PO DAILY [facility] Last Admin: 09/15/17 18:08 Dose: Not Given Aspirin (Aspirin Chewable) 81 mg PO DAILY [facility] Last Admin: 09/15/17 17:32 Dose: Not Given Bacitracin (Bacitracin) 0 gm TOP DAILY [facility] Last Admin: 09/15/17 18:16 Dose: 1 applic Clopidogrel Bisulfate (Plavix) 75 mg PO DAILY [facility] Last Admin: 09/15/17 18:08 Dose: Not Given Collagenase (Santyl) 0 gm TOP DAILY [facility] Docusate Sodium (Colace) 100 mg PO TID [facility] Last Admin: 09/15/17 18:07 Dose: Not Given Famotidine (Pepcid) 20 mg PO 1000,2200 [facility] Last Admin: 09/15/17 23:52 Dose: 20 mg Ferrous Sulfate (Feosol) 324 mg PO TID [facility] Last Admin: 09/15/17 18:08 Dose: Not Given Vancomycin HCl (Vancomycin 1gm) 1 gm in 250 mls @ 167 mls/hr IVPB Q12H [facility] PRN Reason: Protocol Last Admin: 09/16/17 06:03 Dose: 167 mls/hr Ibuprofen (Motrin Tab) 400 mg PO Q6H PRN PRN Reason: Pain, moderate (4-7) Last Admin: 09/16/17 03:11 Dose: 400 mg Lactobacillus Acidophilus (Bacid Acidophilus) 1 cap PO BID [facility] Last Admin: 09/15/17 18:07 Dose: Not Given Lorazepam (Ativan) 1 mg IVP Q6H PRN; Protocol PRN Reason: Anxiety Last Admin: 09/16/17 02:28 Dose: 1 mg Morphine Sulfate (Morphine) 2 mg IVP Q6H PRN PRN Reason: Pain, severe (8-10) Last Admin: 09/16/17 06:03 Dose: 2 mg Nicotine (Nicoderm Cq) 1 patch TD DAILY [facility] Zinc Sulfate (Zinc Sulfate 220 Mg Cap) 220 mg PO DAILY [facility] Last Admin: 09/15/17 18:08 Dose: Not Given Physical Exam - Constitutional Appears: Non-toxic, No Acute Distress - Head Exam Head Exam: NORMAL INSPECTION - Neck Exam Neck exam: Negative for: Lymphadenopathy, Meningismus - Respiratory Exam Respiratory Exam: Decreased Breath Sounds - Cardiovascular Exam Cardiovascular Exam: +S1, +S2 - GI/Abdominal Exam GI & Abdominal Exam: Soft. absent: Tenderness - Extremities Exam Additional comments: left ankle with dressings in place; right foot without note of open ulcer or wound; ecchymoses noted on the 2nd digit Results - Vital Signs Recent Vital Signs: Last Vital Signs Temp 99.5 F 09/16/17 00:00 Pulse 113 H 09/16/17 00:00 Resp 20 09/16/17 00:00 BP 120/77 09/16/17 00:00 Pulse Ox 97 09/16/17 00:00 - Labs Result Diagrams: 09/16/17 06:00 09/16/17 06:00 Labs: Laboratory Results - last 24 hr 09/16/17 09/16/17 09/16/17 00:30 06:00 06:00 WBC 12.7 H RBC 4.02 Hgb 9.2 L Hct 31.1 L MCV 77.4 L MCH 22.9 L MCHC 29.6 L RDW 19.3 H Plt Count 501 H MPV 9.2 Gran % 65.7 Lymph % (Auto) 18.1 L [place] % (Auto) 6.1 H Eos % (Auto) 9.7 H Baso % (Auto) 0.4 Gran # 8.36 H Lymph # 2.3 [place] # 0.8 H Eos # 1.2 H Baso # 0.05 Sodium 139 Potassium 4.4 Chloride 106 Carbon Dioxide 27 Anion Gap 10 BUN 16 Creatinine 1.1 Est GFR ( Amer) > 60 Est GFR (Non-Af Amer) > 60 Random Glucose 98 Calcium 8.9 Phosphorus 3.6 Magnesium 2.2 Total Bilirubin 0.3 AST 18 ALT 21 Alkaline Phosphatase 78 Total Protein 7.1 Albumin 3.3 Globulin 3.8 Albumin/Globulin Ratio 0.9 L Urine Color Yellow Urine Appearance Clear Urine pH 7.5 Ur Specific [place] 1.015 Urine Protein Negative Urine Glucose (UA) Negative Urine Ketones Negative Urine Blood Negative Urine Nitrate Negative Urine Bilirubin Negative Urine Urobilinogen 0.2 Ur Leukocyte Esterase Negative Urine Methadone Screen Ur Barbiturates Screen Ur Amphetamines Screen U Benzodiazepines Scrn U Cannabinoids Screen 09/16/17 06:30 WBC RBC Hgb Hct MCV MCH MCHC RDW Plt Count MPV Gran % Lymph % (Auto) [place] % (Auto) Eos % (Auto) Baso % (Auto) Gran # Lymph # [place] # Eos # Baso # Sodium Potassium Chloride Carbon Dioxide Anion Gap BUN Creatinine Est GFR ( Amer) Est GFR (Non-Af Amer) Random Glucose Calcium Phosphorus Magnesium Total Bilirubin AST ALT Alkaline Phosphatase Total Protein Albumin Globulin Albumin/Globulin Ratio Urine Color Urine Appearance Urine pH Ur Specific [place] Urine Protein Urine Glucose (UA) Urine Ketones Urine Blood Urine Nitrate Urine Bilirubin Urine Urobilinogen Ur Leukocyte Esterase Urine Methadone Screen Negative Ur Barbiturates Screen Negative Ur Amphetamines Screen Negative U Benzodiazepines Scrn Negative U Cannabinoids Screen Negative Assessment & Plan - Assessment and Plan (Free Text) Plan: Assessment Sepsis due to left lateral ankle ulcer with cellulitis in a patient with peripheral arterial disease and probable chronic venous stasis; R/O arterial insufficiency on the right 2nd toe COPD significant smoking history history of staghorn calculus migraine headaches asthma chronic anemia Plan based on previous cultures, started patient on Vancomycin and Rocephin pending blood, wound cx from the left ankle follow up further Podiatry plans and recommendations; suggest Vascular re- evaluation of the right lower extremity will monitor clinically
[2017-09-16] MEDS: Morphine 5 MG/ML SYRINGE IVP PRN (23:19)
[2017-09-17] MEDS: Vancomycin 1gm in NS 250ml 1 GM/250 ML BAG IVPB SCH ×3 (02:56→17:59)
[2017-09-17] MEDS: Morphine 5 MG/ML SYRINGE IVP PRN ×6 (02:56→21:01)
[2017-09-17] MEDS: Sodium Chloride 0.9% 1,000 ML IV SCH ×2 (08:58→20:16)
[2017-09-17] MEDS: cefTRIAXone 1 gm 1 GM/100 ML BAG IVPB SCH (09:00)
[2017-09-17] MEDS: Lactobacillus Acidophilus 500 MU Cap PO SCH ×2 (09:01→17:50)
[2017-09-17] MEDS: Collagenase 250 Units/gm Ointment(30 gm) TOP SCH (09:03)
[2017-09-17] MEDS: Bacitracin Ointment 30 GM TUBE TOP SCH (09:49)
--- NOTE | 2017-09-17 09:56 | CP.PCM.PN ---
<Aidan Syed - Last Filed: 09/17/17 09:52> Subjective - Date & Time of Evaluation Date of Evaluation: 09/17/17 Time of Evaluation: 08:00 - Subjective Subjective: Dr. Goins Service Patient was seen and examined at bedside. Pt has complaints of Rt foot pain No acute or adverse events overnight as per nursing staff, however pt did refuse blood draws this morning. Patient denies fever, chills, sob, chest pain, abdominal pain, nausea, vomiting, diarrhea, constipation, dizziness, or urinary symptoms. Pt is to be NPO tonight with angiogram by IR tomorrow morning. Objective - Vital Signs/Intake and Output Vital Signs (last 24 hours): Temp Pulse Resp BP Pulse Ox 97.6 F 97 H 20 114/72 95 09/17/17 07:33 09/17/17 07:33 09/17/17 07:33 09/17/17 07:33 09/17/17 07:33 Intake and Output: 09/17/17 09/17/17 06:59 18:59 Intake Total 900 Balance 900 - Medications Medications: Current Medications Acetaminophen (Tylenol 325mg Tab) 1,000 mg PO Q6H PRN PRN Reason: Pain, moderate (4-7) Ascorbic Acid (Vitamin C 500 Mg Tab) 500 mg PO DAILY [facility] Last Admin: 09/17/17 09:03 Dose: Not Given Aspirin (Aspirin Chewable) 81 mg PO DAILY [facility] Last Admin: 09/17/17 09:01 Dose: Not Given Bacitracin (Bacitracin) 0 gm TOP DAILY [facility] Last Admin: 09/16/17 09:43 Dose: 1 applic Clopidogrel Bisulfate (Plavix) 75 mg PO DAILY [facility] Last Admin: 09/17/17 09:02 Dose: Not Given Collagenase (Santyl) 3 gm TOP DAILY [facility] Last Admin: 09/17/17 09:03 Dose: Not Given Diphenhydramine HCl (Benadryl) 50 mg PO HS PRN PRN Reason: Insomnia Last Admin: 09/16/17 21:35 Dose: 50 mg Docusate Sodium (Colace) 100 mg PO TID [facility] Last Admin: 09/17/17 09:01 Dose: Not Given Famotidine (Pepcid) 20 mg PO 1000,2200 [facility] Last Admin: 09/17/17 09:02 Dose: Not Given Ferrous Sulfate (Feosol) 324 mg PO TID [facility] Last Admin: 09/17/17 09:02 Dose: Not Given Vancomycin HCl (Vancomycin 1gm) 1 gm in 250 mls @ 167 mls/hr IVPB Q12H [facility] PRN Reason: Protocol Last Admin: 09/17/17 02:56 Dose: 167 mls/hr Ceftriaxone Sodium (Rocephin 1 Gram Ivpb) 1 gm in 100 mls @ 100 mls/hr IVPB DAILY [facility] PRN Reason: Protocol Last Admin: 09/17/17 09:00 Dose: 100 mls/hr Sodium Chloride (Sodium Chloride 0.9%) 1,000 mls @ 100 mls/hr IV .Q10H [facility] Last Admin: 09/17/17 08:58 Dose: 100 mls/hr Lactobacillus Acidophilus (Bacid Acidophilus) 1 cap PO BID [facility] Last Admin: 09/17/17 09:01 Dose: Not Given Lorazepam (Ativan) 1 mg IVP Q6H PRN; Protocol PRN Reason: Anxiety Last Admin: 09/16/17 02:28 Dose: 1 mg Morphine Sulfate (Morphine) 2 mg IVP Q3 PRN PRN Reason: Pain, severe (8-10) Last Admin: 09/17/17 08:43 Dose: 2 mg Nicotine (Nicoderm Cq) 1 patch TD DAILY [facility] Last Admin: 09/17/17 09:02 Dose: Not Given Sodium Chloride ([place]aks Nasal [place]) 0 ml NS Q2H PRN PRN Reason: Nasal congestion Zinc Sulfate (Zinc Sulfate 220 Mg Cap) 220 mg PO DAILY [facility] Last Admin: 09/17/17 09:03 Dose: Not Given - Labs Labs: 09/16/17 06:00 09/16/17 06:00 PT 12.8 SECONDS (9.4-12.5) H 09/15/17 12:56 INR 1.16 (0.93-1.08) H 09/15/17 12:56 APTT 33.3 Seconds (25.1-36.5) 09/15/17 12:56 - Constitutional Appears: No Acute Distress - Head Exam Head Exam: ATRAUMATIC, NORMAL INSPECTION, NORMOCEPHALIC - Eye Exam Eye Exam: EOMI, Normal appearance, PERRL Pupil Exam: NORMAL ACCOMODATION, PERRL - ENT Exam ENT Exam: Mucous Membranes Moist, Normal Exam - Neck Exam Neck Exam: Full ROM, Normal Inspection. absent: Lymphadenopathy - Respiratory Exam Respiratory Exam: Clear to Ausculation Bilateral, NORMAL BREATHING PATTERN - Cardiovascular Exam Cardiovascular Exam: REGULAR RHYTHM, +S1, +S2. absent: Murmur - GI/Abdominal Exam GI & Abdominal Exam: Soft, Normal Bowel Sounds. absent: Tenderness - Extremities Exam Additional comments: Tenderness (left foot: left ankle lateral malleolus wound 4 cm x 3cm dressed. Right foot: ecchymosis of distal aspect of 2nd and third digit). - Neurological Exam Neurological Exam: Alert, Awake, CN II-XII Intact, Normal Gait, Oriented x3 - Psychiatric Exam Psychiatric exam: Agitated - Skin Skin Exam: Dry, Intact, Normal Color, Warm Assessment and Plan - Assessment and Plan (Free Text) Assessment: 62 M with a PMHx of PAD s/p L SFA revascularization and L external iliac stent placement in 07/2017, cellulitis, HTN, renal stones, asthma, tobacco and cocaine /opiate use and migraines who presented to the ED for R 2nd toe pain x1 week and L lateral maleoli ulcer and assessing PAD severity 1. PAD in RLE w/ weak pulses and painful R toe - LE arterial doppler pending; angiogram [facility] in AM 09/18, Dr. Emmanuel Dickens, IR, NPO at [facility] - Continue with ASA and Plavix - ESR 90H CRP; >15 - Morphine PRN for pain control - colace - podiatry on board; recommends santyl, bactroband, and continuation of abx 2. LLE ulcer s/p debridement last week - WBC count trending downward - podiatry on board; recommends santyl, bactroband, and continuation of abx - wound, blood and urine culture; results pending - Procalcitonin; 0.09 - cont Vanc and Zosyn - ID consulted, reccs appreciated 3. poly substance abuse -Drug screen; positive for opioids and cocaine - counselled on harms of illicit drug abuse -Ativan PRN 4. tobacco abuse - educated and counselled on tobacco cessation - nicoderm patch 5. Hx anemia - iron deficiency anemia - mointor H/H - start Feosol w/ colace 6. Hx asthma - duoneb PRN 7. Hx Nephrolithiasis - s/p stents placed and removed in 2015 - maintain hydration - monitor Cr and urine output GI/DVT prophylaxis Pepcid/Plavix Patient was seen, examined and discussed with attending <Natan Goins - Last Filed: 09/17/17 12:26> Objective - Vital Signs/Intake and Output Vital Signs (last 24 hours): Temp Pulse Resp BP Pulse Ox 97.6 F 97 H 20 114/72 95 09/17/17 07:33 09/17/17 07:33 09/17/17 07:33 09/17/17 07:33 09/17/17 07:33 Intake and Output: 09/17/17 09/17/17 06:59 18:59 Intake Total 900 Balance 900 - Medications Medications: Current Medications Acetaminophen (Tylenol 325mg Tab) 1,000 mg PO Q6H PRN PRN Reason: Pain, moderate (4-7) Ascorbic Acid (Vitamin C 500 Mg Tab) 500 mg PO DAILY [facility] Last Admin: 09/17/17 09:03 Dose: Not Given Aspirin (Aspirin Chewable) 81 mg PO DAILY [facility] Last Admin: 09/17/17 09:01 Dose: Not Given Bacitracin (Bacitracin) 0 gm TOP DAILY [facility] Last Admin: 09/16/17 09:43 Dose: 1 applic Clopidogrel Bisulfate (Plavix) 75 mg PO DAILY [facility] Last Admin: 09/17/17 09:02 Dose: Not Given Collagenase (Santyl) 3 gm TOP DAILY [facility] Last Admin: 09/17/17 09:03 Dose: Not Given Diphenhydramine HCl (Benadryl) 50 mg PO HS PRN PRN Reason: Insomnia Last Admin: 09/16/17 21:35 Dose: 50 mg Docusate Sodium (Colace) 100 mg PO TID [facility] Last Admin: 09/17/17 09:01 Dose: Not Given Famotidine (Pepcid) 20 mg PO 1000,2200 [facility] Last Admin: 09/17/17 09:02 Dose: Not Given Ferrous Sulfate (Feosol) 324 mg PO TID [facility] Last Admin: 09/17/17 09:02 Dose: Not Given Vancomycin HCl (Vancomycin 1gm) 1 gm in 250 mls @ 167 mls/hr IVPB Q12H [facility] PRN Reason: Protocol Last Admin: 09/17/17 02:56 Dose: 167 mls/hr Ceftriaxone Sodium (Rocephin 1 Gram Ivpb) 1 gm in 100 mls @ 100 mls/hr IVPB DAILY [facility] PRN Reason: Protocol Last Admin: 09/17/17 09:00 Dose: 100 mls/hr Sodium Chloride (Sodium Chloride 0.9%) 1,000 mls @ 100 mls/hr IV .Q10H [facility] Last Admin: 09/17/17 08:58 Dose: 100 mls/hr Lactobacillus Acidophilus (Bacid Acidophilus) 1 cap PO BID [facility] Last Admin: 09/17/17 09:01 Dose: Not Given Lorazepam (Ativan) 1 mg IVP Q6H PRN; Protocol PRN Reason: Anxiety Last Admin: 09/17/17 11:03 Dose: 1 mg Morphine Sulfate (Morphine) 2 mg IVP Q3 PRN PRN Reason: Pain, severe (8-10) Last Admin: 09/17/17 11:47 Dose: 2 mg Nicotine (Nicoderm Cq) 1 patch TD DAILY [facility] Last Admin: 09/17/17 09:02 Dose: Not Given Sodium Chloride (Saks Nasal [place]) 0 ml NS Q2H PRN PRN Reason: Nasal congestion Zinc Sulfate (Zinc Sulfate 220 Mg Cap) 220 mg PO DAILY [facility] Last Admin: 09/17/17 09:03 Dose: Not Given - Labs Labs: 09/16/17 06:00 09/16/17 06:00 PT 12.8 SECONDS (9.4-12.5) H 09/15/17 12:56 INR 1.16 (0.93-1.08) H 09/15/17 12:56 APTT 33.3 Seconds (25.1-36.5) 09/15/17 12:56 Attending/Attestation - Attestation I have personally seen and examined this patient.: Yes I have fully participated in the care of the patient.: Yes I have reviewed all pertinent clinical information, including history, physical exam and plan: Yes Notes (Text): 09/17/17 12:25 Attending note; Patient seen and examined with resident. Patient is a 62-year-old Male with past medical history of peripheral vascular disease, status post revascularization and L external iliac stent placement in 07/2017, cellulitis, HTN, renal stones, asthma, tobacco and cocaine /opiate use and migraines is admitted with significant right lower extremity pain. Left lower extremity cellulitis ;Patient has chronic nonhealing wound in the left ankle area. on Rocephin and vancomycin. Blood, urine, wound culture is negative. X-rays negative. Right second toe pain with significant pain/dark spots. Arterial duplex ordered. Preliminary results showed decreased right RG at 0.6. angiogram in am.started on IVF. Smoking; started on NicoDerm patch. Complete smoking cessation is strongly advised. Urine drug screen is positive for cocaine. Complete drug abuse cessation is strongly advised. Chronic opiate dependency; on morphine 2 mg IV every 3 when necessary. Podiatry evaluation appreciated. Dressing done. Upon discharge patient will follow-up with PMD .
--- NOTE | 2017-09-17 11:26 | CP.PCM.PN ---
<Malu Carson - Last Filed: 09/17/17 11:19> Subjective - Date & Time of Evaluation Date of Evaluation: 09/17/17 Time of Evaluation: 09:15 - Subjective Subjective: Consult Note for Dr. Fonseca: 62 y.o male with PMH of HTN, migraines, asthma, COPD consulted for left ankle open ulceration 8 days s/p debridement. Patient was seen at bedside this morning , AAOx3. Patient admits to pain in the left ankle ulceration site. No other pedal complaints reported. Denies n/v/sob/cp/chills or f. Objective - Vital Signs/Intake and Output Vital Signs (last 24 hours): Temp Pulse Resp BP Pulse Ox 97.6 F 97 H 20 114/72 95 09/17/17 07:33 09/17/17 07:33 09/17/17 07:33 09/17/17 07:33 09/17/17 07:33 Intake and Output: 09/17/17 09/17/17 06:59 18:59 Intake Total 900 Balance 900 - Medications Medications: Current Medications Acetaminophen (Tylenol 325mg Tab) 1,000 mg PO Q6H PRN PRN Reason: Pain, moderate (4-7) Ascorbic Acid (Vitamin C 500 Mg Tab) 500 mg PO DAILY [facility] Last Admin: 09/17/17 09:03 Dose: Not Given Aspirin (Aspirin Chewable) 81 mg PO DAILY [facility] Last Admin: 09/17/17 09:01 Dose: Not Given Bacitracin (Bacitracin) 0 gm TOP DAILY [facility] Last Admin: 09/16/17 09:43 Dose: 1 applic Clopidogrel Bisulfate (Plavix) 75 mg PO DAILY [facility] Last Admin: 09/17/17 09:02 Dose: Not Given Collagenase (Santyl) 3 gm TOP DAILY [facility] Last Admin: 09/17/17 09:03 Dose: Not Given Diphenhydramine HCl (Benadryl) 50 mg PO HS PRN PRN Reason: Insomnia Last Admin: 09/16/17 21:35 Dose: 50 mg Docusate Sodium (Colace) 100 mg PO TID [facility] Last Admin: 09/17/17 09:01 Dose: Not Given Famotidine (Pepcid) 20 mg PO 1000,2200 [facility] Last Admin: 09/17/17 09:02 Dose: Not Given Ferrous Sulfate (Feosol) 324 mg PO TID [facility] Last Admin: 09/17/17 09:02 Dose: Not Given Vancomycin HCl (Vancomycin 1gm) 1 gm in 250 mls @ 167 mls/hr IVPB Q12H [facility] PRN Reason: Protocol Last Admin: 09/17/17 02:56 Dose: 167 mls/hr Ceftriaxone Sodium (Rocephin 1 Gram Ivpb) 1 gm in 100 mls @ 100 mls/hr IVPB DAILY [facility] PRN Reason: Protocol Last Admin: 09/17/17 09:00 Dose: 100 mls/hr Sodium Chloride (Sodium Chloride 0.9%) 1,000 mls @ 100 mls/hr IV .Q10H [facility] Last Admin: 09/17/17 08:58 Dose: 100 mls/hr Lactobacillus Acidophilus (Bacid Acidophilus) 1 cap PO BID [facility] Last Admin: 09/17/17 09:01 Dose: Not Given Lorazepam (Ativan) 1 mg IVP Q6H PRN; Protocol PRN Reason: Anxiety Last Admin: 09/17/17 11:03 Dose: 1 mg Morphine Sulfate (Morphine) 2 mg IVP Q3 PRN PRN Reason: Pain, severe (8-10) Last Admin: 09/17/17 08:43 Dose: 2 mg Nicotine (Nicoderm Cq) 1 patch TD DAILY [facility] Last Admin: 09/17/17 09:02 Dose: Not Given Sodium Chloride ([place] Nasal [place]) 0 ml NS Q2H PRN PRN Reason: Nasal congestion Zinc Sulfate (Zinc Sulfate 220 Mg Cap) 220 mg PO DAILY [facility] Last Admin: 09/17/17 09:03 Dose: Not Given - Labs Labs: 09/16/17 06:00 09/16/17 06:00 PT 12.8 SECONDS (9.4-12.5) H 09/15/17 12:56 INR 1.16 (0.93-1.08) H 09/15/17 12:56 APTT 33.3 Seconds (25.1-36.5) 09/15/17 12:56 - Constitutional Appears: Well, Non-toxic, No Acute Distress - Head Exam Head Exam: ATRAUMATIC - Extremities Exam Additional comments: Bilateral Lower extremity exam: DERM: LEFT: Open ulceration noted to the left ankle lateral malleolus measuring approximately 4cm x 3cm x .2cm, wound base is 90% fibrotic and 10% granular with eschar slough noted centrally, periwound is slightly macerated but intact, mild erythema noted to the periwound, no increase warmth, no streaking, no purulence, no active drainage, no odor, no tunneling, no undermining noted or probe to bone noted. No fluctuance or abscess appreciated at time of visit. Vasc: Bilateral DP and PT not papable, temperature is cool to cool from proximal to distal toes, CFT >4 seconds, no edema noted Ortho: severe pain with palpation of skin surrounding ulceration site, MM is 5/ 5 in dorsiflexion, plantarflexion, eversion, and inversion Neuro: gross sensation intact bilaterally - Neurological Exam Neurological Exam: Alert, Awake, Oriented x3 - Psychiatric Exam Psychiatric exam: Normal Affect, Normal Mood - Skin Skin Exam: Normal Color, Warm Assessment and Plan - Assessment and Plan (Free Text) Assessment: 62 yo male patient with PMH of HTN, migraines, asthma, COPD with left ankle ulceration likely secondary to 1) venous stasis 2) poor arterial supply Plan: Pt examined and seen Chart, labs, vitals reviewed afebrile; WBC trending down (from 14.6 to 12.7) Left leg Wound culture; preliminary no growth Wound cleansed with saline solution, dressed with saline wet to dry, DSD, ABD, and light Kerlix. Santyl applied to Left ankle X-ray bilateral result; no evidence of acute fracture. No mention of osteomyelitis Continue Abx per ID Continue pain management per primary Will continue to follow while in house <Tristin Fonseca - Last Filed: 09/20/17 11:15> Objective - Vital Signs/Intake and Output Vital Signs (last 24 hours): Temp Pulse Resp BP Pulse Ox 97.6 F 110 H 20 126/92 H 96 09/18/17 07:00 09/18/17 07:00 09/18/17 07:00 09/18/17 07:00 09/18/17 07:00 - Labs Labs: 09/18/17 08:40 09/18/17 08:40 PT 12.8 SECONDS (9.4-12.5) H 09/15/17 12:56 INR 1.16 (0.93-1.08) H 09/15/17 12:56 APTT 33.3 Seconds (25.1-36.5) 09/15/17 12:56 Attending/Attestation - Attestation I have personally seen and examined this patient.: Yes I have fully participated in the care of the patient.: Yes I have reviewed all pertinent clinical information, including history, physical exam and plan: Yes
--- NOTE | 2017-09-17 16:41 | CP.PCM.PN ---
Subjective - Date & Time of Evaluation Date of Evaluation: 09/17/17 Time of Evaluation: 15:30 - Subjective Subjective: Still complaining of pain in the right foot, no fevers overnight. Objective - Vital Signs/Intake and Output Vital Signs (last 24 hours): Temp Pulse Resp BP Pulse Ox 97.6 F 97 H 20 114/72 95 09/17/17 07:33 09/17/17 07:33 09/17/17 07:33 09/17/17 07:33 09/17/17 07:33 Intake and Output: 09/17/17 09/17/17 06:59 18:59 Intake Total 900 Balance 900 - Medications Medications: Current Medications Acetaminophen (Tylenol 325mg Tab) 1,000 mg PO Q6H PRN PRN Reason: Pain, moderate (4-7) Ascorbic Acid (Vitamin C 500 Mg Tab) 500 mg PO DAILY [facility] Last Admin: 09/16/17 09:44 Dose: Not Given Aspirin (Aspirin Chewable) 81 mg PO DAILY [facility] Last Admin: 09/16/17 09:43 Dose: Not Given Bacitracin (Bacitracin) 0 gm TOP DAILY [facility] Last Admin: 09/16/17 09:43 Dose: 1 applic Clopidogrel Bisulfate (Plavix) 75 mg PO DAILY [facility] Last Admin: 09/16/17 09:44 Dose: Not Given Collagenase (Santyl) 3 gm TOP DAILY [facility] Last Admin: 09/16/17 11:00 Dose: Not Given Diphenhydramine HCl (Benadryl) 50 mg PO HS PRN PRN Reason: Insomnia Last Admin: 09/16/17 21:35 Dose: 50 mg Docusate Sodium (Colace) 100 mg PO TID [facility] Last Admin: 09/16/17 17:20 Dose: Not Given Famotidine (Pepcid) 20 mg PO 1000,2200 [facility] Last Admin: 09/16/17 21:35 Dose: 20 mg Ferrous Sulfate (Feosol) 324 mg PO TID [facility] Last Admin: 09/16/17 17:20 Dose: Not Given Vancomycin HCl (Vancomycin 1gm) 1 gm in 250 mls @ 167 mls/hr IVPB Q12H [facility] PRN Reason: Protocol Last Admin: 09/17/17 02:56 Dose: 167 mls/hr Ceftriaxone Sodium (Rocephin 1 Gram Ivpb) 1 gm in 100 mls @ 100 mls/hr IVPB DAILY [facility] PRN Reason: Protocol Last Admin: 09/16/17 11:49 Dose: 100 mls/hr Sodium Chloride (Sodium Chloride 0.9%) 1,000 mls @ 100 mls/hr IV .Q10H [facility] Lactobacillus Acidophilus (Bacid Acidophilus) 1 cap PO BID [facility] Last Admin: 09/16/17 17:20 Dose: Not Given Lorazepam (Ativan) 1 mg IVP Q6H PRN; Protocol PRN Reason: Anxiety Last Admin: 09/16/17 02:28 Dose: 1 mg Morphine Sulfate (Morphine) 2 mg IVP Q3 PRN PRN Reason: Pain, severe (8-10) Last Admin: 09/17/17 02:56 Dose: 2 mg Nicotine (Nicoderm Cq) 1 patch TD DAILY [facility] Last Admin: 09/16/17 09:43 Dose: Not Given Sodium Chloride ([place] Nasal [place]) 0 ml NS Q2H PRN PRN Reason: Nasal congestion Zinc Sulfate (Zinc Sulfate 220 Mg Cap) 220 mg PO DAILY [facility] Last Admin: 09/16/17 09:44 Dose: Not Given - Labs Labs: 09/16/17 06:00 09/16/17 06:00 PT 12.8 SECONDS (9.4-12.5) H 09/15/17 12:56 INR 1.16 (0.93-1.08) H 09/15/17 12:56 APTT 33.3 Seconds (25.1-36.5) 09/15/17 12:56 - Constitutional Appears: Non-toxic - Head Exam Head Exam: NORMAL INSPECTION - Respiratory Exam Respiratory Exam: Decreased Breath Sounds - Cardiovascular Exam Cardiovascular Exam: +S1, +S2 - GI/Abdominal Exam GI & Abdominal Exam: Soft. absent: Tenderness - Extremities Exam Additional comments: left foot / ankle with dressings in place Assessment and Plan - Assessment and Plan (Free Text) Plan: Assessment Sepsis due to left lateral ankle ulcer with cellulitis in a patient with peripheral arterial disease and probable chronic venous stasis; R/O arterial insufficiency on the right 2nd toe COPD significant smoking history history of staghorn calculus migraine headaches asthma chronic anemia Plan based on previous cultures, continue Vancomycin and Rocephin day 2; blood, wound cx from the left ankle have been negative for 1 day follow up further Podiatry plans and recommendations; suggest Vascular re- evaluation of the right lower extremity will continue to monitor clinically
[2017-09-18] MEDS: Morphine 5 MG/ML SYRINGE IVP PRN (05:39)
[2017-09-18 08:06] VITALS: BP 126/92; PULSE 110; TEMP 97.6; O2SAT 96
[2017-09-18 08:48] LABS: BASO # 0.05 K/mm3 (0.0-2.0); BASO % 0.5 % (0.0-3.0); EOS # 0.7 (0.0-0.7); EOS % 6.5 % (1.5-5.0); GRAN # 7.91 (1.4-6.5); GRAN % 71.2 % (50.0-68.0); HEMATOCRIT 30.9 % (42.0-52.0); LYMPH # 1.9 (1.2-3.4); LYMPH % 16.7 % (22.0-35.0); MEAN CELL VOLUME 77.1 fl (80.0-105.0); MEAN CORPUSCULAR HEMOGLOBIN 23.4 pg (25.0-35.0); MEAN CORPUSCULAR HGB CONC 30.4 g/dl (31.0-37.0); MEAN PLATELET VOLUME 8.7 fl (7.0-11.0); MONO # 0.6 (0.1-0.6); MONO % 5.1 % (1.0-6.0); RED CELL DISTRIBUTION WIDTH 19.2 % (11.5-14.5); WHITE BLOOD COUNT 11.1 10^3/ul (4.5-11.0)
[2017-09-18 09:01] LABS: ALB/GLOB RATIO 0.9 (1.1-1.8); ALKALINE PHOSPHATASE 80 U/L (38-126); ALT/SGPT 28 U/L (7-56); AST/SGOT 25 U/L (17-59); BILIRUBIN,TOTAL 0.2 mg/dL (0.2-1.3); BLOOD UREA NITROGEN 19 mg/dL (7-21); CARBON DIOXIDE 26 mmol/L (21-33); CHLORIDE 107 mmol/L (98-107); GFR AFRICAN-AMERICAN > 60; GLUCOSE,RANDOM 108 mg/dL (70-110); POTASSIUM 4.5 mmol/L (3.6-5.0); SODIUM 140 mmol/L (132-148); TOTAL PROTEIN 7.1 g/dL (5.8-8.3)
--- NOTE | 2017-09-18 09:18 | US ---
PROCEDURE: Lower extremity RG exam HISTORY: Peripheral vascular disease with recent left lower extremity intervention. Now with right foot pain. PHYSICIAN(S): Emmanuel Dickens MD. FINDINGS: The right resting RG is moderately abnormal, 0.69. Comparing with the distal waveforms, however the right RG is inaccurate due to calcification. The left resting RG is normal, 1.06. The brachial systolic pressures are symmetric. The high thigh pressures and waveforms are relatively normal. The left calf PVR waveform is normal and augments normally. The right calf PVR waveform is severely blunted. This is consistent with right SFA disease. The right ankle PVR waveform is moderately blunted. The left ankle and metatarsal waveforms are pulsatile and relatively normal. IMPRESSION: 1. Right SFA occlusive disease. 2. Bilateral tibial disease, greater on the right than the left. 3. The PVR waveforms on the left are markedly improved post intervention.
--- NOTE | 2017-09-18 09:21 | CP.PCM.PN ---
<Sonido Jo - Last Filed: 09/18/17 09:32> Subjective - Date & Time of Evaluation Date of Evaluation: 09/18/17 Time of Evaluation: 09:09 - Subjective Subjective: 62 y/o male seen and evaluated with attending Dr. Sanchez for left ankle open ulceration 9 days s/p debridement. Patient was seen at bedside this morning, AAOx3. Patient admits to pain in the left ankle ulceration site. Patient states that he has color changes to the right 2nd toe. Denies of any acute overnight events. No other pedal complaints reported. Denies of any F/N/V/C/SOB/CP Objective - Vital Signs/Intake and Output Vital Signs (last 24 hours): Temp Pulse Resp BP Pulse Ox 97.6 F 110 H 20 126/92 H 96 09/18/17 07:00 09/18/17 07:00 09/18/17 07:00 09/18/17 07:00 09/18/17 07:00 Intake and Output: 09/18/17 09/18/17 06:59 18:59 Intake Total 620 Output Total 0 Balance 620 - Medications Medications: Current Medications Acetaminophen (Tylenol 325mg Tab) 1,000 mg PO Q6H PRN PRN Reason: Pain, moderate (4-7) Ascorbic Acid (Vitamin C 500 Mg Tab) 500 mg PO DAILY [facility] Last Admin: 09/17/17 09:03 Dose: Not Given Aspirin (Aspirin Chewable) 81 mg PO DAILY [facility] Last Admin: 09/17/17 09:01 Dose: Not Given Bacitracin (Bacitracin) 0 gm TOP DAILY [facility] Last Admin: 09/17/17 09:49 Dose: Not Given Clopidogrel Bisulfate (Plavix) 75 mg PO DAILY [facility] Last Admin: 09/17/17 09:02 Dose: Not Given Collagenase (Santyl) 3 gm TOP DAILY [facility] Last Admin: 09/17/17 09:03 Dose: Not Given Diphenhydramine HCl (Benadryl) 50 mg PO HS PRN PRN Reason: Insomnia Last Admin: 09/17/17 21:01 Dose: 50 mg Docusate Sodium (Colace) 100 mg PO TID [facility] Last Admin: 09/17/17 17:48 Dose: Not Given Famotidine (Pepcid) 20 mg PO 1000,2200 [facility] Last Admin: 09/17/17 21:04 Dose: Not Given Ferrous Sulfate (Feosol) 324 mg PO TID [facility] Last Admin: 09/17/17 17:48 Dose: Not Given Vancomycin HCl (Vancomycin 1gm) 1 gm in 250 mls @ 167 mls/hr IVPB Q12H [facility] PRN Reason: Protocol Last Admin: 09/17/17 17:59 Dose: Not Given Ceftriaxone Sodium (Rocephin 1 Gram Ivpb) 1 gm in 100 mls @ 100 mls/hr IVPB DAILY [facility] PRN Reason: Protocol Last Admin: 09/17/17 09:00 Dose: 100 mls/hr Sodium Chloride (Sodium Chloride 0.9%) 1,000 mls @ 100 mls/hr IV .Q10H [facility] Last Admin: 09/17/17 20:16 Dose: Not Given Lactobacillus Acidophilus (Bacid Acidophilus) 1 cap PO BID [facility] Last Admin: 09/17/17 17:50 Dose: Not Given Lorazepam (Ativan) 1 mg IVP Q6H PRN; Protocol PRN Reason: Anxiety Last Admin: 09/18/17 05:38 Dose: 1 mg Morphine Sulfate (Morphine) 2 mg IVP Q3 PRN PRN Reason: Pain, severe (8-10) Last Admin: 09/18/17 05:39 Dose: 2 mg Nicotine (Nicoderm Cq) 1 patch TD DAILY [facility] Last Admin: 09/17/17 09:02 Dose: Not Given Sodium Chloride (Blawnox Nasal Vernalis) 0 ml NS Q2H PRN PRN Reason: Nasal congestion Zinc Sulfate (Zinc Sulfate 220 Mg Cap) 220 mg PO DAILY [facility] Last Admin: 09/17/17 09:03 Dose: Not Given - Labs Labs: 09/18/17 08:40 09/18/17 08:40 PT 12.8 SECONDS (9.4-12.5) H 09/15/17 12:56 INR 1.16 (0.93-1.08) H 09/15/17 12:56 APTT 33.3 Seconds (25.1-36.5) 09/15/17 12:56 - Constitutional Appears: Well, Non-toxic, No Acute Distress - Extremities Exam Extremities Exam: absent: Calf Tenderness Additional comments: Bilateral Lower extremity exam: Vasc: Bilateral DP and PT not papable, temperature is cool to cool from proximal to distal toes, CFT >4 seconds, no edema noted DERM: LEFT: Open ulceration noted to the left ankle lateral malleolus measuring approximately 4cm x 3cm x .2cm, wound base is 90% fibrotic and 10% granular with eschar slough noted centrally, periwound is slightly macerated but intact, mild erythema noted to the periwound, no increase warmth, no streaking, no purulence, no active drainage, no odor, no tunneling, no undermining noted or probe to bone noted. No fluctuance or abscess appreciated at time of visit. small wound measuring approx. 1 cm x 0.5 cm noted superior to tibial tuberosity - wound bed is 85% fibrotic with an island of hyperpigmented tissue no active drainage, no malodor, mild periwound erythema, no probe to bone, no tunneling RIGHT: Distal tip of the 2nd digit shows subdermal hyperpigmentation, no open lesions Neuro: gross sensation intact bilaterally Ortho: severe pain with palpation of skin surrounding ulceration site, MM is 5/ 5 in dorsiflexion, plantarflexion, eversion, and inversion - Neurological Exam Neurological Exam: Alert, Awake, Oriented x3 - Psychiatric Exam Psychiatric exam: Normal Affect, Normal Mood Assessment and Plan - Assessment and Plan (Free Text) Assessment: 62 y/o male with left ankle ulceration likely secondary to 1) venous stasis 2) poor arterial supply Plan: Pt examined and seen with attending Dr. Sanchez Chart, labs, vitals reviewed afebrile; WBC trending down @11.1 today Left ankle Wound culture; preliminary no growth Left leg wound culture (final): S.aureus Wound cleansed with saline solution, dressed with betadine, optifoam Bactroban ordered X-ray bilateral result; no evidence of acute fracture. No mention of osteomyelitis Spoke to Dr. Emmanuel Dickens who will review his RG/PVR and the possible ischemic changes to the right foot 2nd and 3rd digit Continue Abx per ID Continue pain management per primary Will continue to follow while in house <Lorin Sanchez - Last Filed: 09/18/17 15:30> Objective - Vital Signs/Intake and Output Vital Signs (last 24 hours): Temp Pulse Resp BP Pulse Ox 97.6 F 110 H 20 126/92 H 96 09/18/17 07:00 09/18/17 07:00 09/18/17 07:00 09/18/17 07:00 09/18/17 07:00 Intake and Output: 09/18/17 09/18/17 06:59 18:59 Intake Total 620 Output Total 0 Balance 620 - Labs Labs: 09/18/17 08:40 09/18/17 08:40 PT 12.8 SECONDS (9.4-12.5) H 09/15/17 12:56 INR 1.16 (0.93-1.08) H 09/15/17 12:56 APTT 33.3 Seconds (25.1-36.5) 09/15/17 12:56 Attending/Attestation - Attestation I have personally seen and examined this patient.: Yes I have fully participated in the care of the patient.: Yes I have reviewed all pertinent clinical information, including history, physical exam and plan: Yes
--- NOTE | 2017-09-18 14:13 | CP.PCM.DIS ---
<Vitor Monique - Last Filed: 09/18/17 15:27> Provider - Provider Date of Admission: 09/15/17 14:24 Attending physician: Susie Aranda MD Time Spent in preparation of Discharge (in minutes): 45 Hospital Course - Lab Results Lab Results: Micro Results 09/16/17 09:52 Ankle - Left Gram Stain - Final 09/16/17 09:52 Ankle - Left Wound Culture - Preliminary No growth. 09/15/17 20:49 Leg - Left Gram Stain - Final 09/15/17 20:49 Leg - Left Wound Culture - Final Staphylococcus Aureus 09/16/17 00:30 Urine,Clean Catch Urine Culture - Final No Growth (<1,000 CFU/ML) Most Recent Lab Values WBC 11.1 10^3/ul (4.5-11.0) H 09/18/17 08:40 RBC 4.01 10^6/uL (3.5-6.1) 09/18/17 08:40 Hgb 9.4 g/dL (14.0-18.0) L 09/18/17 08:40 Hct 30.9 % (42.0-52.0) L 09/18/17 08:40 MCV 77.1 fl (80.0-105.0) L 09/18/17 08:40 MCH 23.4 pg (25.0-35.0) L 09/18/17 08:40 MCHC 30.4 g/dl (31.0-37.0) L 09/18/17 08:40 RDW 19.2 % (11.5-14.5) H 09/18/17 08:40 Plt Count 449 10^3/uL (120.0-450.0) 09/18/17 08:40 MPV 8.7 fl (7.0-11.0) 09/18/17 08:40 Gran % 71.2 % (50.0-68.0) H 09/18/17 08:40 Lymph % (Auto) 16.7 % (22.0-35.0) L 09/18/17 08:40 [place] % (Auto) 5.1 % (1.0-6.0) 09/18/17 08:40 Eos % (Auto) 6.5 % (1.5-5.0) H 09/18/17 08:40 Baso % (Auto) 0.5 % (0.0-3.0) 09/18/17 08:40 Gran # 7.91 (1.4-6.5) H 09/18/17 08:40 Lymph # 1.9 (1.2-3.4) 09/18/17 08:40 [place] # 0.6 (0.1-0.6) 09/18/17 08:40 Eos # 0.7 (0.0-0.7) 09/18/17 08:40 Baso # 0.05 K/mm3 (0.0-2.0) 09/18/17 08:40 ESR 90 mm/hr (0.00-15.0) H 09/16/17 06:00 PT 12.8 SECONDS (9.4-12.5) H 09/15/17 12:56 INR 1.16 (0.93-1.08) H 09/15/17 12:56 APTT 33.3 Seconds (25.1-36.5) 09/15/17 12:56 Sodium 140 mmol/L (132-148) 09/18/17 08:40 Potassium 4.5 mmol/L (3.6-5.0) 09/18/17 08:40 Chloride 107 mmol/L (98-107) 09/18/17 08:40 Carbon Dioxide 26 mmol/L (21-33) 09/18/17 08:40 Anion Gap 11 (10-20) 09/18/17 08:40 BUN 19 mg/dL (7-21) 09/18/17 08:40 Creatinine 1.0 mg/dl (0.8-1.5) 09/18/17 08:40 Est GFR ( Amer) > 60 09/18/17 08:40 Est GFR (Non-Af Amer) > 60 09/18/17 08:40 Random Glucose 108 mg/dL (70-110) 09/18/17 08:40 Calcium 9.0 mg/dL (8.4-10.5) 09/18/17 08:40 Phosphorus 3.6 mg/dL (2.5-4.5) 09/16/17 06:00 Magnesium 2.2 mg/dL (1.7-2.2) 09/16/17 06:00 Iron 20 ug/dL (45-180) L 09/15/17 12:35 TIBC 298 ug/dL (261-462) 09/15/17 12:35 % Saturation 7 % (20-55) L 09/15/17 12:35 Transferrin 243.64 mg/dL (206-381) 09/15/17 14:00 Ferritin 23.8 ng/mL 09/15/17 14:00 Total Bilirubin 0.2 mg/dL (0.2-1.3) 09/18/17 08:40 AST 25 U/L (17-59) 09/18/17 08:40 ALT 28 U/L (7-56) 09/18/17 08:40 Alkaline Phosphatase 80 U/L (38-126) 09/18/17 08:40 C-React Prot High Sens > 15.00 mg/L (1.00-3.00) H 09/15/17 14:00 Total Protein 7.1 g/dL (5.8-8.3) 09/18/17 08:40 Albumin 3.3 g/dL (3.0-4.8) 09/18/17 08:40 Globulin 3.8 gm/dL 09/18/17 08:40 Albumin/Globulin Ratio 0.9 (1.1-1.8) L 09/18/17 08:40 Vitamin B12 306 pg/mL (239-931) 09/15/17 14:00 RBC Folate 1011 ng/mL RBC (>280) 09/15/17 14:00 Procalcitonin 0.09 NG/ML (0.19-0.49) L 09/15/17 14:00 Urine Color Yellow (YELLOW) 09/16/17 00:30 Urine Appearance Clear (CLEAR) 09/16/17 00:30 Urine pH 7.5 (4.7-8.0) 09/16/17 00:30 Ur Specific [place] 1.015 (1.005-1.035) 09/16/17 00:30 Urine Protein Negative mg/dL (<30 mg/dL) 09/16/17 00:30 Urine Glucose (UA) Negative mg/dL (NEGATIVE) 09/16/17 00:30 Urine Ketones Negative mg/dL (NEGATIVE) 09/16/17 00:30 Urine Blood Negative (NEGATIVE) 09/16/17 00:30 Urine Nitrate Negative (NEGATIVE) 09/16/17 00:30 Urine Bilirubin Negative (NEGATIVE) 09/16/17 00:30 Urine Urobilinogen 0.2 E.U./dL (<1 E.U./dL) 09/16/17 00:30 Ur Leukocyte Esterase Negative [place]/uL (NEGATIVE) 09/16/17 00:30 Urine Opiates Screen Positive (NEGATIVE) H 09/16/17 06:30 Urine Methadone Screen Negative (NEGATIVE) 09/16/17 06:30 Ur Barbiturates Screen Negative (NEGATIVE) 09/16/17 06:30 Ur Phencyclidine Scrn Negative (NEGATIVE) 09/16/17 06:30 Ur Amphetamines Screen Negative (NEGATIVE) 09/16/17 06:30 U Benzodiazepines Scrn Negative (NEGATIVE) 09/16/17 06:30 U Oth Cocaine Metabols Positive (NEGATIVE) H 09/16/17 06:30 U Cannabinoids Screen Negative (NEGATIVE) 09/16/17 06:30 Blood Type O POSITIVE 09/15/17 13:06 Blood Type Confirm O POSITIVE 09/15/17 13:30 Antibody Screen Negative 09/15/17 13:06 BBK History Checked No verified bt 09/15/17 13:06 - Hospital Course Hospital Course: Mr. Pascal is a 62yo Male with PMH PAD s/p L SFA revascularization and L external iliac stent placement in 07/2017, cellulitis, HTN, renal stones, asthma, tobacco and cocaine/opiate use and migraines who presented to the ED for R toe pain x1 week. Pt had debridement for his L lateral malleolus by Dr. Sanchez on 09/09/17. He denies trauma, fever, chills, CP, SOB, n/v/d numbness/ tingling. Pt is unable to walk more than a few steps before experiencing pain in his legs. The patient also complains numbness tingling in the bottom of his feet, which has been happening for months. He denies having history of diabetes , increased thirst or urinary frequency. Per Dr. Harp, the pt did not follow up with him after last d/c for renewing ASA and Plavix. While admitted into the hospital the patient was seen by Infectious disease and Podiatry physicians. The patient was found to be positive to cocaine in the drug screen. The patient had an left ankle xray done that was negative for fracture. The patient also had a right foot xray done that showed hallux valgus and mild osteoarthritis of the 1st MTP. The patient was started on Rocephin and Vancomycin for cellulitis. Final blood and wound cultures weren't back before the patient left. The patient had a arterial duplex done that showed a preliminary decrease in RG at .6 in the right extremity. The patient was set to have a angiogram done by Dr. Emmanuel Dickens however left against medical advice the morning of the exam. Discharge Exam - Head Exam Head Exam: ATRAUMATIC, NORMAL INSPECTION, NORMOCEPHALIC Additional comments: The remainder of PE was unobtainable since the patient left AMA in the morning before rounds. - Eye Exam Eye Exam: absent: Normal appearance Discharge Plan - Follow Up Plan Condition: GUARDED Disposition: AGAINST MEDICAL ADVICE <Susie Aranda - Last Filed: 09/18/17 15:50> Provider - Provider Date of Admission: 09/15/17 14:24 Attending physician: Susie Aranda MD Hospital Course - Lab Results Lab Results: Micro Results 09/16/17 09:52 Ankle - Left Gram Stain - Final 09/16/17 09:52 Ankle - Left Wound Culture - Preliminary No growth. 09/15/17 20:49 Leg - Left Gram Stain - Final 09/15/17 20:49 Leg - Left Wound Culture - Final Staphylococcus Aureus 09/16/17 00:30 Urine,Clean Catch Urine Culture - Final No Growth (<1,000 CFU/ML) Most Recent Lab Values WBC 11.1 10^3/ul (4.5-11.0) H 09/18/17 08:40 RBC 4.01 10^6/uL (3.5-6.1) 09/18/17 08:40 Hgb 9.4 g/dL (14.0-18.0) L 09/18/17 08:40 Hct 30.9 % (42.0-52.0) L 09/18/17 08:40 MCV 77.1 fl (80.0-105.0) L 09/18/17 08:40 MCH 23.4 pg (25.0-35.0) L 09/18/17 08:40 MCHC 30.4 g/dl (31.0-37.0) L 09/18/17 08:40 RDW 19.2 % (11.5-14.5) H 09/18/17 08:40 Plt Count 449 10^3/uL (120.0-450.0) 09/18/17 08:40 MPV 8.7 fl (7.0-11.0) 09/18/17 08:40 Gran % 71.2 % (50.0-68.0) H 09/18/17 08:40 Lymph % (Auto) 16.7 % (22.0-35.0) L 09/18/17 08:40 [place] % (Auto) 5.1 % (1.0-6.0) 09/18/17 08:40 Eos % (Auto) 6.5 % (1.5-5.0) H 09/18/17 08:40 Baso % (Auto) 0.5 % (0.0-3.0) 09/18/17 08:40 Gran # 7.91 (1.4-6.5) H 09/18/17 08:40 Lymph # 1.9 (1.2-3.4) 09/18/17 08:40 [place] # 0.6 (0.1-0.6) 09/18/17 08:40 Eos # 0.7 (0.0-0.7) 09/18/17 08:40 Baso # 0.05 K/mm3 (0.0-2.0) 09/18/17 08:40 ESR 90 mm/hr (0.00-15.0) H 09/16/17 06:00 PT 12.8 SECONDS (9.4-12.5) H 09/15/17 12:56 INR 1.16 (0.93-1.08) H 09/15/17 12:56 APTT 33.3 Seconds (25.1-36.5) 09/15/17 12:56 Sodium 140 mmol/L (132-148) 09/18/17 08:40 Potassium 4.5 mmol/L (3.6-5.0) 09/18/17 08:40 Chloride 107 mmol/L (98-107) 09/18/17 08:40 Carbon Dioxide 26 mmol/L (21-33) 09/18/17 08:40 Anion Gap 11 (10-20) 09/18/17 08:40 BUN 19 mg/dL (7-21) 09/18/17 08:40 Creatinine 1.0 mg/dl (0.8-1.5) 09/18/17 08:40 Est GFR ( Amer) > 60 09/18/17 08:40 Est GFR (Non-Af Amer) > 60 09/18/17 08:40 Random Glucose 108 mg/dL (70-110) 09/18/17 08:40 Calcium 9.0 mg/dL (8.4-10.5) 09/18/17 08:40 Phosphorus 3.6 mg/dL (2.5-4.5) 09/16/17 06:00 Magnesium 2.2 mg/dL (1.7-2.2) 09/16/17 06:00 Iron 20 ug/dL (45-180) L 09/15/17 12:35 TIBC 298 ug/dL (261-462) 09/15/17 12:35 % Saturation 7 % (20-55) L 09/15/17 12:35 Transferrin 243.64 mg/dL (206-381) 09/15/17 14:00 Ferritin 23.8 ng/mL 09/15/17 14:00 Total Bilirubin 0.2 mg/dL (0.2-1.3) 09/18/17 08:40 AST 25 U/L (17-59) 09/18/17 08:40 ALT 28 U/L (7-56) 09/18/17 08:40 Alkaline Phosphatase 80 U/L (38-126) 09/18/17 08:40 C-React Prot High Sens > 15.00 mg/L (1.00-3.00) H 09/15/17 14:00 Total Protein 7.1 g/dL (5.8-8.3) 09/18/17 08:40 Albumin 3.3 g/dL (3.0-4.8) 09/18/17 08:40 Globulin 3.8 gm/dL 09/18/17 08:40 Albumin/Globulin Ratio 0.9 (1.1-1.8) L 09/18/17 08:40 Vitamin B12 306 pg/mL (239-931) 09/15/17 14:00 RBC Folate 1011 ng/mL RBC (>280) 09/15/17 14:00 Procalcitonin 0.09 NG/ML (0.19-0.49) L 09/15/17 14:00 Urine Color Yellow (YELLOW) 09/16/17 00:30 Urine Appearance Clear (CLEAR) 09/16/17 00:30 Urine pH 7.5 (4.7-8.0) 09/16/17 00:30 Ur Specific [place] 1.015 (1.005-1.035) 09/16/17 00:30 Urine Protein Negative mg/dL (<30 mg/dL) 09/16/17 00:30 Urine Glucose (UA) Negative mg/dL (NEGATIVE) 09/16/17 00:30 Urine Ketones Negative mg/dL (NEGATIVE) 09/16/17 00:30 Urine Blood Negative (NEGATIVE) 09/16/17 00:30 Urine Nitrate Negative (NEGATIVE) 09/16/17 00:30 Urine Bilirubin Negative (NEGATIVE) 09/16/17 00:30 Urine Urobilinogen 0.2 E.U./dL (<1 E.U./dL) 09/16/17 00:30 Ur Leukocyte Esterase Negative [place]/uL (NEGATIVE) 09/16/17 00:30 Urine Opiates Screen Positive (NEGATIVE) H 09/16/17 06:30 Urine Methadone Screen Negative (NEGATIVE) 09/16/17 06:30 Ur Barbiturates Screen Negative (NEGATIVE) 09/16/17 06:30 Ur Phencyclidine Scrn Negative (NEGATIVE) 09/16/17 06:30 Ur Amphetamines Screen Negative (NEGATIVE) 09/16/17 06:30 U Benzodiazepines Scrn Negative (NEGATIVE) 09/16/17 06:30 U Oth Cocaine Metabols Positive (NEGATIVE) H 09/16/17 06:30 U Cannabinoids Screen Negative (NEGATIVE) 09/16/17 06:30 Blood Type O POSITIVE 09/15/17 13:06 Blood Type Confirm O POSITIVE 09/15/17 13:30 Antibody Screen Negative 09/15/17 13:06 BBK History Checked No verified bt 09/15/17 13:06 Attending/Attestation - Attestation I have personally seen and examined this patient.: No I have fully participated in the care of the patient.: No I have reviewed all pertinent clinical information, including history, physical exam and plan: Yes Notes (Text): Patient left AMA before I could see the patient.
--- NOTE | 2017-09-19 14:31 | PQF SEPSIS ---
09/19/17 Dr. Goins, ID golf tournament consultant documents "sepsis due to left lateral ankle ulcer with cellulitis " on his consult and progress note of 09/17. Do you agree, disagree, undetermined with the diagnosis of systemic sepsis? If you agree, was sepsis present on admission? Thank you. Clarification of your documentation is requested to better reflect the severity of illness and intensity of treatment of your patient. Indicators present [] Temp < 96.8 or > 100.4 [x] WBC count > 12,000/mm3 or <000/mm3 or 10% immature neutrophils [x] Heart Rate > 90 [] Respiratory Rate > 20 [] Fever or hypothermia [] Chills [] Positive blood cultures [] Hypotension [] Metabolic acidosis (Elevated lactate level, anion gap or reduced blood pH) [] Acute confusion /Altered Mental Status [] Shock [] Other: [] Location in the medical record that reflects the above clinical findings: [] Treatment Provided: [] PHYSICIAN'S RESPONSE Based on your medical judgment of the clinical indicators outlined above, are you treating this patient for a known or suspected: [] Sepsis / Septicemia Please specify organism if known [] [x] SIRS (Systemic Inflammatory Response Syndrome) [] Severe Sepsis (Sepsis with Associated Organ Dysfunction) [] Fever of Unknown Origin [] Other, please indicate: [] [] If Unable to Determine, please check the box, sign and date. Present On Admission (POA) Indicator: [x] Present at the time of admission [] Not present at the time of admission [] Clinically Undetermined In responding to this query, please exercise your independent professional judgment. The fact that a question is asked does not imply that any particular answer is desired or expected. Thank you for your clarification on this documentation. If you have any questions please call:[ ] * Thank you, [ ] sound mixer LYNNE
== END 2017-09-18 09:31 | disposition left against medical advice (07) | DRG 300 ==
LOC: ED 12:13 → ERH 14:24 → 5RSO 16:14 → 5RNO 09-16 15:44
PROVIDERS: ADMIT Internal Medicine; ATTEND Hospitalist
DX: I83.223 Varicose veins of left lower extremity with both ulcer of ankle and inflammation (principal); F11.20 Opioid dependence, uncomplicated; R65.10 Systemic inflammatory response syndrome (SIRS) of non-infectious origin without acute organ dysfunction; L03.116 Cellulitis of left lower limb; L97.329 Non-pressure chronic ulcer of left ankle with unspecified severity; I12.9 Hypertensive chronic kidney disease with stage 1 through stage 4 chronic kidney disease, or unspecified chronic kidney disease; D50.9 Iron deficiency anemia, unspecified; F17.210 Nicotine dependence, cigarettes, uncomplicated; I73.9 Peripheral vascular disease, unspecified; J44.9 Chronic obstructive pulmonary disease, unspecified; M19.079 Primary osteoarthritis, unspecified ankle and foot; M20.10 Hallux valgus (acquired), unspecified foot; I87.8 Other specified disorders of veins; N18.9 Chronic kidney disease, unspecified; G43.909 Migraine, unspecified, not intractable, without status migrainosus; N20.0 Calculus of kidney; Z53.21 Procedure and treatment not carried out due to patient leaving prior to being seen by health care provider; Z82.49 Family history of ischemic heart disease and other diseases of the circulatory system; Z83.3 Family history of diabetes mellitus; Z87.442 Personal history of urinary calculi

== ENCOUNTER 2017-10-02 11:39 | Day surgery (SDC) | payer OTHER, MEDICAID ==
[2017-10-02 12:26] LABS: BASO # 0.04 K/mm3 (0.0-2.0); BASO % 0.3 % (0.0-3.0); EOS # 0.8 (0.0-0.7); EOS % 6.7 % (1.5-5.0); GRAN # 8.13 (1.4-6.5); GRAN % 69.5 % (50.0-68.0); HEMATOCRIT 31.8 % (42.0-52.0); LYMPH # 2.2 (1.2-3.4); LYMPH % 18.4 % (22.0-35.0); MEAN CELL VOLUME 78.5 fl (80.0-105.0); MEAN CORPUSCULAR HEMOGLOBIN 23.7 pg (25.0-35.0); MEAN CORPUSCULAR HGB CONC 30.2 g/dl (31.0-37.0); MEAN PLATELET VOLUME 9.2 fl (7.0-11.0); MONO # 0.6 (0.1-0.6); MONO % 5.1 % (1.0-6.0); RED CELL DISTRIBUTION WIDTH 19.5 % (11.5-14.5); WHITE BLOOD COUNT 11.7 10^3/ul (4.5-11.0)
[2017-10-02 12:41] LABS: INR 1.05 (0.93-1.08); PARTIAL THROMBOPLASTIN TIME 31.4 Seconds (25.1-36.5)
[2017-10-02 13:09] LABS: BLOOD UREA NITROGEN 14 mg/dL (7-21); CALCIUM 10.3 mg/dL (8.4-10.5); CARBON DIOXIDE 25 mmol/L (21-33); CHLORIDE 107 mmol/L (98-107); GFR AFRICAN-AMERICAN > 60; GLUCOSE,RANDOM 98 mg/dL (70-110); POTASSIUM 3.6 mmol/L (3.6-5.0); SODIUM 143 mmol/L (132-148)
[2017-10-02] MEDS ORDERED: Lidocaine 2% Inj (20ml) ONE (13:21)
[2017-10-02] MEDS ORDERED: Midazolam 2 MG/2 ML VIAL ONE ×3 (13:22→14:27)
[2017-10-02] MEDS ORDERED: Iodixanol 320 MG/ML 100 ML BOTTLE IV ONE ×2 (13:22→15:39)
[2017-10-02] MEDS ORDERED: Iodixanol 320 MG/ML 200 ML BOTTLE IV ONE (13:22)
[2017-10-02] MEDS ORDERED: Nitroglycerin 50mg in D5W 50 MG/250 ML BOTTLE IV ONE (13:23)
[2017-10-02] MEDS ORDERED: Iohexol 350mgl/ml 50 ML ONE (15:38)
[2017-10-02] MEDS ORDERED: Oxycodone/Acetaminophen 5/325 mg Tab PO PRN (16:07)
[2017-10-02] MEDS ORDERED: Sodium Chloride 0.45% 1,000 ML IV SCH (16:15)
[2017-10-02] MEDS ORDERED: Oxycodone/Acetaminophen 5/325 mg Tab ONE (16:29)
[2017-10-02 16:51] VITALS: RESP 18; TEMP 97.4; O2SAT 99
[2017-10-02 16:53] VITALS: PULSE 110; BMI 26.9
[2017-10-02 17:55] VITALS: BP 140/97
--- NOTE | 2017-10-02 19:06 | VASCULAR ---
PROCEDURE: 1. Abdominal aortogram and bilateral lower extremity runoff and right selective views 2. Right SFA drug-eluting balloon angioplasty and Supera stent placement 3. Right external iliac artery angioplasty and stent placement HISTORY: Severe peripheral vascular disease. Right digital gangrene. Recent left lower extremity endovascular intervention for ischemic ulceration. Smoker. PHYSICIAN(S): Emmanuel Dickens M.D. TECHNIQUE: The relative risks and indications of the procedure were explained to the patient and consent obtained. The patient was hydrated prior to the procedure and the appropriate labs drawn. The patient was placed supine on the arteriogram table and the left groin prepped and draped in the usual sterile fashion. Conscious sedation and monitoring were provided throughout the procedure by a nurse. Via a left common femoral artery approach, a 5 [place] sheath was placed in the left groin. Through the sheath and over a guidewire, a 5 [place] flush catheter was placed in the abdominal aorta at the level of the renal arteries and a PA DSA abdominal aortogram performed. The catheter was pulled down to the aortic bifurcation and bilateral oblique DSA pelvic arteriograms performed. Overlapping bilateral lower extremity DSA arteriograms were obtained from the inguinal ligaments to the ankles. A 0.035 angled Glidewire was advanced over the bifurcation and placed in the mid right SFA. A 7 [place] 65 cm destination sheath was placed in the right external iliac artery. Pull-back pressures were obtained across the proximal right external iliac artery stenosis. A significant 30-40 mm gradient was demonstrated. A 0.035 trail armond catheter was advanced to the distal right SFA occlusion. The occlusion was crossed with 0.035 angled Glidewire and 5 [place] catheter. Re-entry was not easily obtained. An out back catheter was utilized for re-entry in the adductor canal. A 0.018 support wire was placed in the right peroneal artery. The right SFA was dilated with 5 mm x 200 mm balloon. Next the right SFA was dilated with 6 mm drug-eluting balloon in its mid to distal extent and a 7 mm balloon proximally. A residual stenosis was seen in the adductor canal. The distal right SFA was prepped with 7 mm balloon. 6.5 by 120 mm Supera stent was deployed in the mid to distal right SFA. An excellent angiographic result was obtained. The proximal right external iliac artery was dilated with a 7 mm balloon. Next an 8 mm x 4 cm self expanding stent was deployed in the right external iliac artery origin. This was dilated with an 8 mm balloon. Completion angiograms were obtained. The sheath was removed and hemostasis obtained with a Perclose device. The patient tolerated the procedure well. FINDINGS: There are single renal arteries bilaterally which are widely patent and normal in appearance. The nephrograms are symmetric in appearance. The infrarenal abdominal aorta is calcified and patent without radiographically significant stenosis.. The aortic bifurcation is in and tortuous.. There is a stent in the proximal left external iliac artery is patent. There is a tortuous stenosis in the proximal right external iliac artery. A significant 30-40 mm gradient was demonstrated with pull-back pressures. Right lower extremity: The right common femoral artery is patent with posterior plaque. The right profunda femoral artery is hypertrophied. The right superficial femoral artery is diffusely diseased with moderate stenoses proximally and a 6 cm occlusion in the distal right SFA. The terminal right SFA reconstitutes. The right popliteal artery is patent and continuous. There is 2 vessel runoff via the right anterior tibial and peroneal arteries.. Left lower extremity: Left common femoral artery is patent. The left profunda femoral artery is hypertrophied. The left superficial femoral artery is diffusely disease. The previous endovascular interventions and distal left SFA stent are patent. The left popliteal artery is patent. There is 2 vessel runoff via the left anterior tibial and peroneal arteries.. IMPRESSION: 1.Successful right SFA recanalization with drug-eluting balloon angioplasty and Supera stent placement 2. Proximal right external iliac artery angioplasty and stent placement. 3. 2 vessel tibial runoff bilaterally. There may be a subtle embolus in the mid right peroneal artery post intervention but the feet were stable and salvage was not deemed necessary
== END 2017-10-02 17:45 | disposition home or self-care (01) ==
LOC: SDSVAS 11:39
PROVIDERS: ATTEND Radiology Vascular & Interventional Radiology
DX: I70.261 Atherosclerosis of native arteries of extremities with gangrene, right leg (principal); I74.3 Embolism and thrombosis of arteries of the lower extremities; F17.200 Nicotine dependence, unspecified, uncomplicated
CPT/HCPCS: 36415; 37221; 37226; 75625; 75716; 80048; 85025; 85610; 85730; 99152; 99153; C1725 ×6; C1760 ×2; C1769 ×6; C1876; C1885; C1887 ×2; C1894; J0690; J1170; J1644 ×2; J2250; J2405; J3010; J7030 ×2; Q9967

== ENCOUNTER 2017-10-23 12:41 | Inpatient (IN) | payer MEDICARE, MEDICAID ==
[2017-10-23] MEDS ORDERED: Piperacill/Tazo 4.5gm in NS 4.5 GM/100 ML BAG IVPB STA (13:01)
[2017-10-23] MEDS ORDERED: Vancomycin 1gm in NS 250ml 1 GM/250 ML BAG IVPB STA (13:01)
[2017-10-23] MEDS ORDERED: HYDROmorphone 1 mg/ml ISec IVP STA (13:07)
--- NOTE | 2017-10-23 13:13 | ED PDOC ---
Arrival/HPI - General Chief Complaint: Fever Time Seen by Provider: 10/23/17 12:48 Historian: Patient - History of Present Illness Narrative History of Present Illness (Text): 10/23/17 12:50 Sd Pascal is a 62 year old male, whose past medical history includes COPD, asthma, stents to bilateral lower extremities and a smoker, who presents to the emergency department complaining of fever, vomiting, nausea for a few days and developing an infection to his right foot this past week. Patient's family states that patient had stents surgically placed in both legs by Dr. Emmanuel Dickens two weeks ago and has been visiting the wound care center every Monday but skipped this week due to current symptoms. Patient denies any history of diabetes or any other complaints at this time. Time/Duration: < week Symptom Onset: Gradual Symptom Course: Unchanged Severity Level: Mild Activities at Onset: Light Context: Home Past Medical History - Provider Review Nursing Documentation Reviewed: Yes - Infectious Disease Hx of Infectious Diseases: None - Tetanus Immunization Tetanus Immunization: Unknown - Past Medical History Past Medical History: No Previous - Cardiac Hx Pacemaker: No Other/Comment: B/L LL stents x 2 weeks ago - Pulmonary Hx Respiratory Disorders: Yes Hx Asthma: Yes - Neurological Hx Paralysis: No - HEENT Hx HEENT Disorder: No - Renal Hx Renal Disorder: Yes Hx Kidney Stones: Yes - Endocrine/Metabolic Hx Endocrine Disorders: No - Hematological/Oncological Hx Blood Transfusions: No Hx Blood Transfusion Reaction: No - Integumentary Hx Dermatological Disorder: Yes Hx Cellulitis: Yes - Musculoskeletal/Rheumatological Hx Musculoskeletal Disorders: No - Gastrointestinal Hx Gastrointestinal Disorders: No - Genitourinary/Gynecological Hx Genitourinary Disorders: No - Psychiatric Hx Emotional Abuse: No Hx Physical Abuse: No Hx Substance Use: Yes (14-15 YRS AGO) - Past Surgical History Past Surgical History: Non-Contributing - Surgical History Hx Angiogram: Yes Hx Angioplasty: Yes (L external iliac ) Other/Comment: stent placement to left groin - Anesthesia Hx Anesthesia Reactions: No Hx Malignant Hyperthermia: No - Suicidal Assessment Feels Threatened In Home Enviroment: No Family/Social History - Physician Review Nursing Documentation Reviewed: Yes Family/Social History: No Known Family HX Smoking Status: Heavy Smoker > 10 Cigarettes Daily Hx Alcohol Use: No (pt denies) Hx Substance Use: Yes (14-15 YRS AGO) Substance used: coccaine Hx Substance Use Treatment: No Allergies/Home Meds Allergies/Adverse Reactions: Allergies No Known Allergies Allergy (Verified 09/15/17 12:33) Home Medications: Home Meds Medication Instructions Recorded Confirmed oxyCODONE/Acetaminophen [Percocet 1 tab PO Q12H PRN 10/02/17 10/23/17 5/325 mg Tab] Review of Systems - Physician Review All systems were reviewed & negative as marked: Yes - Review of Systems Constitutional: Fevers. absent: Night Sweats Eyes: absent: Vision Changes ENT: absent: Hearing Changes Respiratory: absent: SOB Gastrointestinal: Nausea, Vomiting Genitourinary Male: absent: Dysuria Musculoskeletal: absent: Arthralgias Skin: Other (infection to right foot) Neurological: absent: Headache Endocrine: absent: Diaphoresis Hemo/Lymphatic: absent: Adenopathy Psychiatric: absent: Anxiety, Depression Physical Exam Vital Signs Reviewed: Yes Vital Signs Temp Pulse Resp BP Pulse Ox 10/23/17 14:15 98.5 F 95 H 16 95 10/23/17 12:52 98.4 F 100 H 20 158/91 H 93 L Temperature: Afebrile Blood Pressure: Hypertensive Pulse: Tachycardic - Systems Exam Head: Present: Atraumatic, Normocephalic Pupils: Present: PERRL Extroacular Muscles: Present: EOMI Conjunctiva: Present: Normal Mouth: Present: Moist Mucous Membranes Neck: Present: Normal Range of Motion Respiratory/Chest: Present: Decreased Breath Sounds (diffusely) Cardiovascular: Present: Regular Rate and Rhythm, Normal S1, S2. No: Murmurs Abdomen: Present: Normal Bowel Sounds. No: Tenderness, Distention, Peritoneal Signs Back: Present: Normal Inspection Upper Extremity: Present: Normal Inspection. No: Cyanosis, Edema Lower Extremity: Present: NORMAL PULSES (Decreased pulses to palpation.), Deformity (2nd and 3rd digits to the right foot are gangrenous and dry. Underside of 5th digit of right foot is swollen, foul-smelling, with pirulent discharge, and tender to palpation. Superficial skin breakdown to left lateral malleolus. ) Neurological: Present: GCS=15, CN II-XII Intact, Speech Normal Skin: Present: Warm, Dry, Normal Color. No: Rashes Psychiatric: Present: Alert, Oriented x 3, Normal Insight, Normal Concentration Medical Decision Making ED Course and Treatment: 10/23/17 13:22 Impression: 62 year old male complaining of fever, vomiting, nausea for a few days and developing an infection to his right foot this past week. Plan: -- EKG -- Chest X-ray -- Right Foot X-ray -- VBG and Blood Culture -- Labs -- Dilaudid, Vancomycin, Zosyn, and IV fluids -- Reassess and disposition Prior Visits: Notes and results from previous visits were reviewed. Patient was last seen in the emergency department on 09/15/17 for R foot toe pain x 1 week. Patient was admitted to hospitalist care for further evaluation. Progress Notes: - Lab Interpretations Lab Results: 10/23/17 13:00 10/23/17 13:45 Lab Results 10/23/17 13:45: Sodium 141, Chloride 105, Potassium 3.5 L, Carbon Dioxide 27, Anion Gap 13, BUN 12, Creatinine 1.2, Est GFR ( Amer) > 60, Est GFR (Non- Af Amer) > 60, Random Glucose 98, Calcium 9.2, Total Bilirubin 0.3, AST 29, ALT 26, Alkaline Phosphatase 72, Total Protein 7.6, Albumin 3.4, Globulin 4.2, Albumin/Globulin Ratio 0.8 L 10/23/17 13:00: pO2 24 L, VBG pH 7.40, VBG pCO2 48.0, VBG HCO3 29.7 H, VBG Total CO2 31.2 H, VBG O2 Sat (Calc) 48.4, VBG Base Excess 4.0 H, VBG Potassium 3.8, Sodium 140.0, Chloride 107.0, Glucose 103, Lactate 1.0, FiO2 21.0, Venous Blood Potassium 3.8 10/23/17 13:00: PT 14.6 H, INR 1.32 H 10/23/17 13:00: WBC 14.3 H D, RBC 4.15, Hgb 9.9 L, Hct 32.4 L, MCV 78.1 L, MCH 23.9 L, MCHC 30.6 L, RDW 19.1 H, Plt Count 487 H, MPV 9.6, Gran % 82.9 H, Lymph % (Auto) 9.2 L, [place] % (Auto) 6.6 H, Eos % (Auto) 1.2 L, Baso % (Auto) 0.1, Gran # 11.89 H, Lymph # 1.3, [place] # 0.9 H, Eos # 0.2, Baso # 0.02 I have reviewed the lab results: Yes - RAD Interpretation Radiology Orders: 10/23/17 13:01 CHEST PORTABLE [RAD] Stat 10/23/17 13:09 FOOT RIGHT 3 VIEWS ROUTINE [RAD] Stat - Medication Orders Current Medication Orders: Sodium Chloride (Sodium Chloride 0.9%) 1,000 mls @ 150 mls/hr IV .Q6H40M MARVEL Last Admin: 10/23/17 13:23 Dose: 150 mls/hr eMAR Start Stop Document 10/23/17 13:23 AB (Rec: 10/23/17 13:23 [id number] Intravenous Solution Start Date 10/23/17 Start Time 13:23 Discontinued Medications Hydromorphone HCl (Dilaudid) 1 mg IVP STAT STA Stop: 10/23/17 13:08 Last Admin: 10/23/17 13:22 Dose: 1 mg MAR Pain Assessment Document 10/23/17 13:22 AB (Rec: 10/23/17 13:23 [id number] Pain Reassessment Is this a pain reassessment? Yes Sleep Is patient sleeping during reassessment? No Presence of Pain Presence of Pain Yes Pain Scale Used Pain Scale Used Numeric Location Left, Right or Bilateral Bilateral Pain Location Body Site Leg Foot 2nd Toe 3rd Toe Description Description Constant Intensity of Pain at present 7 Pain Behavior Grasping Site Restlessness Aggravating Factors ADL's Alleviating Factors/Management Medication Techniques Alleviating Factors Medication IVP Administration Document 10/23/17 13:22 AB (Rec: 10/23/17 13:23 [id number]) Charges for Administration # of IVP Administrations 1 Vancomycin HCl (Vancomycin 1gm) 1 gm in 250 mls @ 167 mls/hr IVPB STAT STA PRN Reason: Protocol Stop: 10/23/17 14:30 Last Admin: 10/23/17 14:36 Dose: 167 mls/hr eMAR Start Stop Document 10/23/17 14:36 AB (Rec: 10/23/17 14:37 [id number]) Intravenous Solution Start Date 10/23/17 Start Time 14:36 End Date 12/25/17 Piperacillin Sod/Tazobactam Sod (Zosyn 4.5 Gm In Ns 100ml) 4.5 gm in 100 mls @ 200 mls/hr IVPB STAT STA PRN Reason: Protocol Stop: 10/23/17 13:30 Last Admin: 10/23/17 13:46 Dose: 200 mls/hr eMAR Start Stop Document 10/23/17 13:46 AB (Rec: 10/23/17 13:47 AB [id number]) Intravenous Solution Start Date 10/23/17 Start Time 13:46 End Date 10/23/17 End time 14:16 Total Infusion Time 30 - Scribe Statement The provider has reviewed the documentation as recorded by the Francisco Javier Kirkland Provider Scribe Attestation: All medical record entries made by the Scribe were at my direction and personally dictated by me. I have reviewed the chart and agree that the record accurately reflects my personal performance of the history, physical exam, medical decision making, and the department course for this patient. I have also personally directed, reviewed, and agree with the discharge instructions and disposition. Disposition/Present on Arrival - Present on Arrival Any Indicators Present on Arrival: No History of DVT/PE: No History of Uncontrolled Diabetes: No Urinary Catheter: No History of Decub. Ulcer: No History Surgical Site Infection Following: None - Disposition Have Diagnosis and Disposition been Completed?: Yes Diagnosis: Wound drainage, Peripheral vascular disease Disposition: HOSPITALIZED Disposition Time: 15:00 Condition: STABLE Forms: [employer] (Vietnamese)
[2017-10-23] MEDS: Sodium Chloride 0.9% 1,000 ML IV SCH ×2 (13:23→18:55)
[2017-10-23 13:30] LABS: BASO # 0.02 K/mm3 (0.0-2.0); BASO % 0.1 % (0.0-3.0); EOS # 0.2 (0.0-0.7); EOS % 1.2 % (1.5-5.0); GRAN # 11.89 (1.4-6.5); GRAN % 82.9 % (50.0-68.0); HEMOGLOBIN 9.9 g/dL (14.0-18.0); LYMPH # 1.3 (1.2-3.4); LYMPH % 9.2 % (22.0-35.0); MEAN CELL VOLUME 78.1 fl (80.0-105.0); MEAN CORPUSCULAR HEMOGLOBIN 23.9 pg (25.0-35.0); MEAN CORPUSCULAR HGB CONC 30.6 g/dl (31.0-37.0); MEAN PLATELET VOLUME 9.6 fl (7.0-11.0); MONO # 0.9 (0.1-0.6); MONO % 6.6 % (1.0-6.0); RBC 4.15 10^6/uL (3.5-6.1); RED CELL DISTRIBUTION WIDTH 19.1 % (11.5-14.5); WHITE BLOOD COUNT 14.3 10^3/ul (4.5-11.0)
[2017-10-23 13:31] LABS: VENOUS BLOOD GAS PO2 24 mm/Hg (30-55)
[2017-10-23 13:40] LABS: INR 1.32 (0.93-1.08); PROTHROMBIN TIME 14.6 SECONDS (9.4-12.5)
[2017-10-23 14:03] LABS: ALB/GLOB RATIO 0.8 (1.1-1.8); ALBUMIN 3.4 g/dL (3.0-4.8); ALT/SGPT 26 U/L (7-56); AST/SGOT 29 U/L (17-59); BLOOD UREA NITROGEN 12 mg/dL (7-21); CALCIUM 9.2 mg/dL (8.4-10.5); GFR AFRICAN-AMERICAN > 60; GFR NON-AFRICAN AMERICAN > 60
--- NOTE | 2017-10-23 14:10 | RAD ---
HISTORY: Sepsis patient. Portable study 13:41 COMPARISON: 09/15/2017 FINDINGS: LUNGS: No active pulmonary disease. PLEURA: No significant pleural effusion identified, no pneumothorax apparent. CARDIOVASCULAR: No radiographic findings to suggest acute or significant cardiovascular disease. Tortuous thoracic aorta OSSEOUS STRUCTURES: No significant abnormalities. VISUALIZED UPPER ABDOMEN: Normal. OTHER FINDINGS: None. IMPRESSION: No active disease. No significant interval change compared to the prior examination(s).
--- NOTE | 2017-10-23 15:59 | RAD ---
PROCEDURE: Right Foot Radiographs. HISTORY: infection COMPARISON: None. FINDINGS: BONES: No acute fracture. JOINTS: Multiple hammertoe deformities. SOFT TISSUES: Normal. OTHER FINDINGS: None. IMPRESSION: No acute findings related to/accounting for the clinical presentation.
[2017-10-23] MEDS ORDERED: Oxycodone/Acetaminophen 5/325 mg Tab PO PRN (16:04)
--- NOTE | 2017-10-23 16:17 | CP.PCM.HP ---
<Dave Cole - Last Filed: 10/23/17 16:40> History of Present Illness - History of Present Illness History of Present Illness: Internal Medicine H&P - Mike Cole PGY2 cc: right foot pain HPI: Patient is a 62yo male with past medical history of PAD s/p L SFA revascularization and L external iliac stent placement in 07/2017, hypertension , nephrolithiasis, asthma, tobacco/cocaine/opiate use and migraines that presents [facility] c/o right foot pain for the past 3 days associated with subjective fevers, nausea and bilious vomiting (2 episodes). He reports that for the last 2 months he has had black discoloration of his right 2nd and 3rd toes however in the past 3 days they have been associated with a great deal of pain. He reports that he had been admitted recently in 08/2017 during which time he was seen by Dr. Sanchez and underwent debridement of his left lateral malleoulus. During that admission, he had an arterial duplex done which was notable for R. SFA occlusive disease and bilateral tibial disease (R>L ) and was scheduled to undergo angiography with Dr. Dickens however he had signed out AMA prior to having the procedure done. He reports following up with Dr. Sanchez and going to the wound care however has had worsening of his right foot toes. Admits to cocaine use 3 weeks prior. Denies chest pain, palpitations, SOB , focal weakness, numbness, tingling, dysuria, frequency, urgency. 12point ROS as per HPI above otherwise negative PMHx: as stated above PSHx: L SFA revascularization and L ext iliac stent placement in 07/[address] Dickens; Allergies: NKDA Social Hx: Tobacco use of ~1ppd x >30yrs; admits to cocaine use 3 weeks prior; denies alcohol use Family Hx: Mother: DM, HTN PMD: Dr. Hakan Harp Present on Admission - Present on Admission Any Indicators Present on Admission: No Past Patient History - Infectious Disease Hx of Infectious Diseases: None - Tetanus Immunizations Tetanus Immunization: Unknown - Past Social History Smoking Status: Heavy Smoker > 10 Cigarettes Daily - CARDIAC Hx Pacemaker: No Other/Comment: B/L LL stents x 2 weeks ago - PULMONARY Hx Respiratory Disorders: Yes Hx Asthma: Yes - NEUROLOGICAL Hx Paralysis: No - HEENT Hx HEENT Problems: No - RENAL Hx Chronic Kidney Disease: Yes Hx Kidney Stones: Yes - ENDOCRINE/METABOLIC Hx Endocrine Disorders: No - HEMATOLOGICAL/ONCOLOGICAL Hx Blood Transfusions: No Hx Blood Transfusion Reaction: No - INTEGUMENTARY Hx Dermatological Problems: Yes Hx Cellulitis: Yes - MUSCULOSKELETAL/RHEUMATOLOGICAL Hx Musculoskeletal Disorders: No - GASTROINTESTINAL Hx Gastrointestinal Disorders: No - GENITOURINARY/GYNECOLOGICAL Hx Genitourinary Disorders: No - PSYCHIATRIC Hx Emotional Abuse: No Hx Physical Abuse: No Hx Substance Use: Yes (14-15 YRS AGO) - SURGICAL HISTORY Hx Angiogram: Yes Hx Angioplasty: Yes (L external iliac ) Other/Comment: stent placement to left groin - ANESTHESIA Hx Anesthesia Reactions: No Hx Malignant Hyperthermia: No Meds Allergies/Adverse Reactions: Allergies Allergy/AdvReac Type Severity Reaction Status Date / Time No Known Allergies Allergy Verified 10/23/17 18:44 Physical Exam - Constitutional Appears: No Acute Distress - Head Exam Head Exam: ATRAUMATIC, NORMOCEPHALIC - Eye Exam Eye Exam: EOMI, PERRL - ENT Exam ENT Exam: Mucous Membranes Moist - Neck Exam Neck exam: Positive for: Normal Inspection - Respiratory Exam Respiratory Exam: Wheezes. absent: Rales, Rhonchi - Cardiovascular Exam Cardiovascular Exam: RRR, +S1, +S2. absent: Gallop, JVD, Rubs, Systolic Murmur - GI/Abdominal Exam GI & Abdominal Exam: Soft. absent: Distended, Firm, Guarding, Rebound, Tenderness - Extremities Exam Additional comments: b/l lower extremities warm to palpation and normal color Left ankle lateral malleolus ulceration measuring approximately 4cm x 3cm Right foot 2nd and 3rd digits dry and gangrenous lower extremity pulses diminished bilaterally - Neurological Exam Neurological exam: Alert, CN II-XII Intact, Oriented x3 - Skin Skin Exam: Dry, Normal Color, Warm Results - Vital Signs Recent Vital Signs: Last Vital Signs Temp 98.5 F 10/23/17 14:15 Pulse 95 H 10/23/17 14:15 Resp 16 10/23/17 14:15 BP 158/91 H 10/23/17 12:52 Pulse Ox 95 10/23/17 14:15 - Labs Result Diagrams: 10/23/17 13:00 10/23/17 13:45 Labs: Laboratory Results - last 24 hr 10/23/17 10/23/17 10/23/17 13:00 13:00 13:00 WBC 14.3 H D RBC 4.15 Hgb 9.9 L Hct 32.4 L MCV 78.1 L MCH 23.9 L MCHC 30.6 L RDW 19.1 H Plt Count 487 H MPV 9.6 Gran % 82.9 H Lymph % (Auto) 9.2 L [place] % (Auto) 6.6 H Eos % (Auto) 1.2 L Baso % (Auto) 0.1 Gran # 11.89 H Lymph # 1.3 [place] # 0.9 H Eos # 0.2 Baso # 0.02 PT 14.6 H INR 1.32 H pO2 24 L VBG pH 7.40 VBG pCO2 48.0 VBG HCO3 29.7 H VBG Total CO2 31.2 H VBG O2 Sat (Calc) 48.4 VBG Base Excess 4.0 H VBG Potassium 3.8 Sodium 140.0 Chloride 107.0 Glucose 103 Lactate 1.0 FiO2 21.0 Potassium Carbon Dioxide Anion Gap BUN Creatinine Est GFR ( Amer) Est GFR (Non-Af Amer) Random Glucose Calcium Total Bilirubin AST ALT Alkaline Phosphatase Total Protein Albumin Globulin Albumin/Globulin Ratio Venous Blood Potassium 3.8 10/23/17 13:45 WBC RBC Hgb Hct MCV MCH MCHC RDW Plt Count MPV Gran % Lymph % (Auto) [place] % (Auto) Eos % (Auto) Baso % (Auto) Gran # Lymph # [place] # Eos # Baso # PT INR pO2 VBG pH VBG pCO2 VBG HCO3 VBG Total CO2 VBG O2 Sat (Calc) VBG Base Excess VBG Potassium Sodium 141 Chloride 105 Glucose Lactate FiO2 Potassium 3.5 L Carbon Dioxide 27 Anion Gap 13 BUN 12 Creatinine 1.2 Est GFR ( Amer) > 60 Est GFR (Non-Af Amer) > 60 Random Glucose 98 Calcium 9.2 Total Bilirubin 0.3 AST 29 ALT 26 Alkaline Phosphatase 72 Total Protein 7.6 Albumin 3.4 Globulin 4.2 Albumin/Globulin Ratio 0.8 L Venous Blood Potassium Assessment & Plan - Assessment and Plan (Free Text) Plan: 62 male with history of PAD s/p L SFA revascularization and L external iliac stent placement in 07/2017, cellulitis, HTN, nephrolithiasis, tobacco/cocaine/ opiate use and migraines who presented to the ED c/o right foot pain for the past 3 days associated with subjective fever/nausea/vomiting 1. PAD in RLE w/ weak pulses and painful R toe - Right foot xray pending official read - LE arterial duplex pending - Angiogram was originally scheuled on 09/18/[address] Dickens however patient had left AMA - Continue with ASA 81mg PO daily - Continue with cilostazol 100mg PO BID - Pain control - Zofran PRN - afebrile, however with leukocytosis of 14.3 - cultures pending - procalcitonin pending - ID consulted - Dr. Portillo - Podiatry consulted - Dr. Sanchez - IR consulted - Dr. Dickens 2. LLE lateral malleolus ulceration s/p debridement - Wound culture pending - Podiatry consulted - cont Vanc and Zosyn 3. polysubstance abuse - Drug screen pending 4. Hx of tobacco abuse - nicoderm patch - counseled on smoking cessation 5. Hx of anemia - history of iron deficiency anemia - continue to monitor H/H 6. Hx asthma - duoneb PRN 7. GI/DVT prophylaxis -Protonix/Lovenox Patient seen and case discussed/reviewed with attending, Dr. Alberts <Brian Alberts - Last Filed: 10/26/17 08:00> Results - Vital Signs Recent Vital Signs: Last Vital Signs Temp 98.7 F 10/25/17 16:00 Pulse 92 H 10/25/17 16:00 Resp 20 10/25/17 16:00 BP 99/69 L 10/25/17 16:00 Pulse Ox 96 10/25/17 16:00 - Labs Result Diagrams: 10/26/17 07:00 10/26/17 07:00 Labs: Laboratory Results - last 24 hr 10/25/17 10/26/17 10/26/17 07:15 07:00 07:00 WBC 8.8 RBC 3.42 L Hgb 7.9 L Hct 27.0 L MCV 78.9 L MCH 23.1 L MCHC 29.3 L RDW 18.8 H Plt Count 404 MPV 8.6 Gran % 54.5 Lymph % (Auto) 26.5 [place] % (Auto) 6.0 Eos % (Auto) 12.3 H Baso % (Auto) 0.7 Gran # 4.80 Lymph # 2.3 [place] # 0.5 Eos # 1.1 H Baso # 0.06 Sodium 142 143 Potassium 3.7 4.3 Chloride 106 108 H Carbon Dioxide 26 27 Anion Gap 13 12 BUN 12 13 Creatinine 1.2 1.2 Est GFR ( Amer) > 60 > 60 Est GFR (Non-Af Amer) > 60 > 60 Random Glucose 104 81 Calcium 8.8 8.3 L Total Bilirubin 0.1 L 0.1 L AST 18 21 ALT 21 25 Alkaline Phosphatase 56 81 Total Protein 6.7 6.3 Albumin 3.0 2.8 L Globulin 3.8 3.5 Albumin/Globulin Ratio 0.8 L 0.8 L Attending/Attestation - Attestation I have personally seen and examined this patient.: Yes I have fully participated in the care of the patient.: Yes I have reviewed all pertinent clinical information: Yes Notes (Text): 10/26/17 07:55 Patient seen and examined with resident. 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 Management plan was discussed in detail with patient Education was provided. 10/26/17 07:57
[2017-10-23] MEDS ORDERED: Albuterol-Ipratrop 3 mg / 0.5 (3 ml) UD IH PRN (16:38)
[2017-10-23] MEDS: Morphine 2 mg/ml ISec IVP PRN (17:49)
[2017-10-23] MEDS: Cilostazol 100 mg Tab UD PO SCH (17:49)
[2017-10-23] MEDS ORDERED: Piperacill/Tazo 4.5gm in NS 4.5 GM/100 ML BAG IVPB SCH (18:00)
[2017-10-23 19:50] VITALS: BMI 26.9
[2017-10-23] MEDS ORDERED: Influenza Vaccine 60 mcg/0.5 mL SYR (4YR UP) IM ONE (19:50)
[2017-10-23] MEDS ORDERED: Pneumococcal 23-Valent Vaccine IM ONE (19:50)
[2017-10-24] MEDS: Piperacillin/Tazobact 3.375 gm 100 ML IVPB SCH ×4 (00:01→19:52)
[2017-10-24] MEDS: Morphine 2 mg/ml ISec IVP PRN ×4 (00:01→15:09)
[2017-10-24] MEDS: Sodium Chloride 0.9% 1,000 ML IV SCH (03:24)
[2017-10-24] MEDS ORDERED: Enoxaparin 30 mg Syringe SC SCH (10:00)
[2017-10-24] MEDS: Cilostazol 100 mg Tab UD PO SCH ×2 (10:07→19:44)
[2017-10-24] MEDS ORDERED: Enoxaparin 40 mg Syringe SC SCH (12:15)
--- NOTE | 2017-10-24 13:17 | CP.PCM.PN ---
<Rohith Choi - Last Filed: 10/24/17 14:32> Subjective - Date & Time of Evaluation Date of Evaluation: 10/24/17 Time of Evaluation: 13:14 - Subjective Subjective: Patient has been seen and examined. Patient refused labs this morning. He reports nausea and some abdominal discomfort. Patient denies any fever, chills , cp, vomiting, diarrhea, constipation, abdominal pain, or urinary symptoms. Objective - Vital Signs/Intake and Output Vital Signs (last 24 hours): Temp Pulse Resp BP Pulse Ox 98.7 F 104 H 20 135/90 97 10/24/17 07:30 10/24/17 07:30 10/24/17 07:30 10/24/17 07:30 10/24/17 07:30 Intake and Output: 10/24/17 10/24/17 06:59 18:59 Intake Total 900 Balance 900 - Medications Medications: Current Medications Albuterol/Ipratropium (Duoneb 3 Mg/0.5 Mg (3 Ml) Ud) 3 ml IH [id number] PRN PRN Reason: Shortness of Breath Aspirin (Aspirin Chewable) 81 mg PO DAILY [facility] Last Admin: 10/24/17 09:59 Dose: 81 mg Cilostazol (Pletal) 100 mg PO BID [facility] Last Admin: 10/24/17 10:07 Dose: 100 mg Enoxaparin Sodium (Lovenox) 40 mg SC DAILY [facility] Gabapentin (Neurontin) 300 mg PO TID [facility] PRN Reason: Protocol Last Admin: 10/24/17 13:04 Dose: 300 mg Sodium Chloride (Sodium Chloride 0.9%) 1,000 mls @ 150 mls/hr IV .Q6H40M [facility] Last Admin: 10/24/17 03:24 Dose: Not Given Vancomycin HCl (Vancomycin 1gm) 1 gm in 250 mls @ 167 mls/hr IVPB DAILY [facility] PRN Reason: Protocol Piperacillin Sod/Tazobactam Sod (Zosyn 3.375 In Ns 100ml) 100 mls @ 200 mls/hr IVPB Q6 [facility] PRN Reason: Protocol Stop: 11/02/17 00:01 Last Admin: 10/24/17 13:04 Dose: 200 mls/hr Morphine Sulfate (Morphine) 2 mg IVP Q4H PRN PRN Reason: Pain, severe (8-10) Last Admin: 10/24/17 10:20 Dose: 2 mg Nicotine (Nicoderm Cq) 1 patch TD DAILY [facility] Last Admin: 10/24/17 09:59 Dose: 1 patch Pantoprazole Sodium (Protonix Ec Tab) 40 mg PO ACB [facility] - Labs Labs: PT 14.6 SECONDS (9.4-12.5) H 10/23/17 13:00 INR 1.32 (0.93-1.08) H 10/23/17 13:00 - Constitutional Appears: Toxic, In Acute Distress - Head Exam Head Exam: ATRAUMATIC, NORMAL INSPECTION, NORMOCEPHALIC - Eye Exam Eye Exam: Normal appearance - ENT Exam ENT Exam: Mucous Membranes Moist - Respiratory Exam Respiratory Exam: Clear to Ausculation Bilateral. absent: Rales, Rhonchi, Wheezes - Cardiovascular Exam Cardiovascular Exam: Tachycardia, REGULAR RHYTHM, +S1, +S2. absent: Murmur - GI/Abdominal Exam GI & Abdominal Exam: Soft, Normal Bowel Sounds. absent: Distended, Firm, Guarding, Tenderness, Organomegaly - Extremities Exam Extremities Exam: absent: Pedal Edema Additional comments: b/l lower extremities warm to palpation and normal color Left ankle lateral malleolus ulceration measuring approximately 4cm x 3cm Right foot 2nd and 3rd digits dry and gangrenous +2 Post. Tibialis puls b/l. + 1 pedis Dorsalis pulse b/l. - Neurological Exam Neurological Exam: Alert, Awake, Oriented x3 Additional comments: tremor - Psychiatric Exam Psychiatric exam: absent: Normal Affect (Restricted ) Assessment and Plan - Assessment and Plan (Free Text) Assessment: 62 male with history of PAD s/p L SFA revascularization and L external iliac stent placement in 07/2017, cellulitis, HTN, nephrolithiasis, tobacco/cocaine/ opiate use and migraines who presented to the ED c/o right foot pain for the past 3 days associated with subjective fever/nausea/vomiting Plan: PAD in RLE w/ weak pulses and painful R toe - Right foot xray pending official read - LE arterial duplex pending - Angiogram was originally scheuled on 09/18/[address] Dickens however patient had left AMA - Continue with ASA 81mg PO daily - Continue with cilostazol 100mg PO BID - Pain control - Zofran PRN - afebrile, however with leukocytosis of 14.3 - Gram Stain NEGATIVE B/L. Blood Culture-NEGATIVE - ProCal - 7.27 - ID consulted - Dr. Portillo. Recs [id number] -Started Zosyn - Podiatry consulted - Dr. Sanchez - Follow up Recs - IR consulted - Dr. Dickens - Follow up Recs LLE lateral malleolus ulceration s/p debridement - Wound culture - NEGATIVE - Podiatry consulted - cont Vanc and Zosyn 3. polysubstance abuse - Drug screen pending - Ordered - Will likely cancel. 4. Hx of tobacco abuse - nicoderm patch - counseled on smoking cessation 5. Hx of anemia - history of iron deficiency anemia - continue to monitor H/H - Patient refused labs today. 6. Hx asthma - duoneb PRN 7. GI/DVT prophylaxis -Protonix/Lovenox Dispo: Patient refused AM labs today. Patient seen and examined with Attending Rohith Choi <Brian Alberts - Last Filed: 10/26/17 11:59> Objective - Vital Signs/Intake and Output Vital Signs (last 24 hours): Temp Pulse Resp BP Pulse Ox 97.9 F 107 H 20 134/78 97 10/26/17 07:30 10/26/17 07:30 10/26/17 07:30 10/26/17 07:30 10/26/17 07:30 Intake and Output: 10/26/17 10/26/17 06:59 18:59 Intake Total 1020 Output Total 0 Balance 1020 - Medications Medications: Current Medications Albuterol/Ipratropium (Duoneb 3 Mg/0.5 Mg (3 Ml) Ud) 3 ml IH [id number] PRN PRN Reason: Shortness of Breath Aspirin (Aspirin Chewable) 81 mg PO DAILY [facility] Last Admin: 10/26/17 10:12 Dose: 81 mg Docusate Sodium (Colace) 100 mg PO DAILY [facility] Last Admin: 10/26/17 10:11 Dose: 100 mg Enoxaparin Sodium (Lovenox) 40 mg SC DAILY [facility] Last Admin: 10/26/17 10:14 Dose: 40 mg Ferrous Sulfate (Feosol) 324 mg PO TID [facility] Last Admin: 10/26/17 10:11 Dose: 324 mg Gabapentin (Neurontin) 300 mg PO TID [facility] PRN Reason: Protocol Last Admin: 10/26/17 10:11 Dose: 300 mg Sodium Chloride (Sodium Chloride 0.9%) 1,000 mls @ 150 mls/hr IV .Q6H40M [facility] Last Admin: 10/26/17 03:05 Dose: Not Given Vancomycin HCl (Vancomycin 1gm) 1 gm in 250 mls @ 167 mls/hr IVPB DAILY [facility] PRN Reason: Protocol Last Admin: 10/26/17 10:12 Dose: 167 mls/hr Piperacillin Sod/Tazobactam Sod (Zosyn 3.375 In Ns 100ml) 100 mls @ 200 mls/hr IVPB Q6 [facility] PRN Reason: Protocol Stop: 11/02/17 00:01 Last Admin: 10/26/17 11:23 Dose: 200 mls/hr Morphine Sulfate (Morphine) 2 mg IVP Q4H PRN PRN Reason: Pain, moderate (4-7) Last Admin: 10/26/17 08:11 Dose: 2 mg Nicotine (Nicoderm Cq) 1 patch TD DAILY [facility] Last Admin: 10/26/17 10:12 Dose: 1 patch Oxycodone/Acetaminophen (Percocet 5/325 Mg Tab) 1 tab PO Q4H PRN PRN Reason: Pain, moderate (4-7) Stop: 10/27/17 17:52 Pantoprazole Sodium (Protonix Ec Tab) 40 mg PO ACB [facility] Last Admin: 10/26/17 08:12 Dose: 40 mg - Labs Labs: 10/26/17 07:00 10/26/17 07:00 PT 14.6 SECONDS (9.4-12.5) H 10/23/17 13:00 INR 1.32 (0.93-1.08) H 10/23/17 13:00 Attending/Attestation - Attestation I have personally seen and examined this patient.: Yes I have fully participated in the care of the patient.: Yes I have reviewed all pertinent clinical information, including history, physical exam and plan: Yes Notes (Text): 10/26/17 11:58 Patient was seen and examined with regional medical director. Agreed with resident assessment and plan. Management plan was discussed in detail with patient Education was provided.
[2017-10-24] MEDS: Vancomycin 1gm in NS 250ml 1 GM/250 ML BAG IVPB SCH (15:10)
--- NOTE | 2017-10-24 17:29 | CARD ---
APPROVED REPORT EKG Measurement Heart [id number] <Conclusion> Normal sinus rhythm Normal ECG
[2017-10-24] MEDS ORDERED: Oxycodone/Acetaminophen 5/325 mg Tab PO PRN (17:51)
--- NOTE | 2017-10-24 20:42 | PN ---
DATE: 10/24/2017 SUBJECTIVE: This is a 62-year-old male, seen for gangrene to the toes of his right foot. The patient has a history of relatively noncompliant and signing out AMA several times from the hospital. He was recently successfully revascularized by Dr. Emmanuel Dickens on 10/02/2017 for that right foot. At that time, he was noted to have cocaine in his system, so no digital surgeries were proposed until we were sure that he was not going to abuse cocaine as it is such as severe vasodilator. The patient states that his foot got infected over the weekend. His had been doing his wound care at home. PHYSICAL EXAMINATION: VITAL SIGNS: Today is 98.7 temperature, his pulse is 104, and blood pressure is 135/90. LABORATORY DATA: Show white blood cell count of 14.3. His chemistry shows BUN and creatinine were within normal limits as is his glucose. Microbiology, the Gram-stain is pending. His [facility] from the ankle on the left, but we do not have cultures from the toes. The patient has nonpalpable pedal pulses. His temperature gradient is warm and his capillary refill time is decreased bilateral. He does have gangrenous toes to his third and fourth toe on his right foot with some bloody drainage in between the two toes. There is no ascending cellulitis, though the toes are warm locally. There is no fluctuance noted in the toes at this point. His lateral ankle on the left is clean, granular and much smaller and it is healing. He did have an several months ago on the left lower extremity and his leg is going on to heal. ASSESSMENT AND PLAN: Peripheral vascular disease with gangrene to the third and fourth toes on his right foot. Plan of treatment is discussed with the patient and his daughter, the need for amputation of those toes; however, I need to make sure that the circulation are still open and his foot is being profuse. We did discuss smoking; however, I did not discuss the cocaine because his daughter was there and I will address that in the morning with the patient. In the meantime, I did order the arterial Doppler. The patient will be scheduled for the OR on , if the Doppler is relatively within normal limits and we will stop his Pletal tomorrow. The patient is agreeable. He and his daughter are agreeable to the proposed procedure. He did state that he is going to stop smoking and his feet were both dressed at bedside. Lorin Sanchez DPM
[2017-10-24] MEDS ORDERED: Morphine 2 mg/ml ISec IVP STA (22:30)
--- NOTE | 2017-10-25 00:13 | CON ---
DATE: 10/24/2017 LOCATION: The patient is in bed and was seen earlier this morning in room 574, bed 1. CHIEF COMPLAINT: Foot infection of the right foot times several days. HISTORY OF PRESENT ILLNESS: A 62-year-old male with history of left lateral ankle ulcer and cellulitis with E. coli and sensitive Staph aureus in the past, history of chronic obstructive lung disease, history of staghorn calculus and migraine headaches and asthma and chronic anemia, peripheral artery disease and the patient with status post left SFA, who was admitted with diagnosis of draining wound. The patient states that he has a foot infection. PAST MEDICAL HISTORY: Significant for severe peripheral arterial disease, history of chronic anemia, asthma, migraine headaches, staghorn calculus, chronic obstructive lung disease, sensitive Staph aureus, left lateral ankle ulcer and cellulitis with E. coli. PAST SURGICAL HISTORY: Significant for hand surgery and stent, bilateral lower extremities. ALLERGIES: THE PATIENT HAS KNOWN ALLERGIES. REVIEW OF SYSTEMS: Reveals the patient states he has low-grade fevers, no chills, no chest pain, no abdominal pain, diarrhea or constipation. No dysuria or frequency. PHYSICAL EXAMINATION: VITAL SIGNS: Temperature is 98, heart rate of 104, respiratory rate of 20 and blood pressure 130/90. HEENT: Unremarkable. NECK: Supple. LUNGS: Has decreased breath sounds. HEART: Normal S1 and S2. ABDOMEN: Soft and nontender. LABORATORY DATA: Chest x-ray, which is negative. Foot x-ray which is negative. Reveals the white count of 14,300, hemoglobin of 9 and platelets of 487. Coagulation is noted. Chemistry revealed a BUN of 12 and creatinine of 1.2. Procalcitonin 7.27. Microbiology reveals the blood cultures are negative and the right foot cultures are pending. ASSESSMENT AND PLAN: A 62-year-old male with severe peripheral arterial disease, chronic obstructive lung disease, staghorn calculus, migraine headaches, asthma and chronic anemia presenting with tachycardia and leukocytosis and foot infection with sepsis with right foot cellulitis, must rule out underlining osteomyelitis. We will treat the patient with vancomycin and Zosyn and we will check arterial ultrasound and cultures result. Cardiology consultation. Vascular consultation. Should have an MRI to rule out underlying osteomyelitis. Most likely we will need Podiatric intervention, Surgical intervention and we will follow closely with you. Delmar Portillo MD [facility] # [id number]
[2017-10-25] MEDS: Piperacillin/Tazobact 3.375 gm 100 ML IVPB SCH ×4 (00:18→18:24)
[2017-10-25] MEDS: Sodium Chloride 0.9% 1,000 ML IV SCH (06:26)
[2017-10-25 07:15] LABS: BASO # 0.05 K/mm3 (0.0-2.0); BASO % 0.5 % (0.0-3.0); EOS # 0.5 (0.0-0.7); EOS % 5.8 % (1.5-5.0); GRAN # 5.99 (1.4-6.5); HEMOGLOBIN 8.4 g/dL (14.0-18.0); LYMPH # 1.9 (1.2-3.4); LYMPH % 20.3 % (22.0-35.0); MEAN CELL VOLUME 78.3 fl (80.0-105.0); MEAN CORPUSCULAR HEMOGLOBIN 23.1 pg (25.0-35.0); MEAN CORPUSCULAR HGB CONC 29.5 g/dl (31.0-37.0); MEAN PLATELET VOLUME 8.8 fl (7.0-11.0); MONO # 0.8 (0.1-0.6); MONO % 8.4 % (1.0-6.0); RBC 3.64 10^6/uL (3.5-6.1); RED CELL DISTRIBUTION WIDTH 18.7 % (11.5-14.5); WHITE BLOOD COUNT 9.2 10^3/ul (4.5-11.0)
[2017-10-25] MEDS ORDERED: Morphine 2 mg/ml ISec IVP PRN (07:55)
[2017-10-25 08:06] LABS: ALB/GLOB RATIO 0.8 (1.1-1.8); ALT/SGPT 21 U/L (7-56); AST/SGOT 18 U/L (17-59); BLOOD UREA NITROGEN 12 mg/dL (7-21); CALCIUM 8.8 mg/dL (8.4-10.5); GFR AFRICAN-AMERICAN > 60; GFR NON-AFRICAN AMERICAN > 60
[2017-10-25] MEDS: Enoxaparin 40 mg Syringe SC SCH (09:00)
[2017-10-25] MEDS: Morphine 2 mg/ml ISec IVP PRN ×4 (09:00→22:32)
[2017-10-25] MEDS: Cilostazol 100 mg Tab UD PO SCH (09:00)
[2017-10-25] MEDS: Pantoprazole 40 mg EC Tab PO SCH (09:01)
[2017-10-25] MEDS: Vancomycin 1gm in NS 250ml 1 GM/250 ML BAG IVPB SCH (09:20)
--- NOTE | 2017-10-25 13:10 | CP.PCM.PN ---
<Rohith Choi - Last Filed: 10/25/17 13:06> Subjective - Date & Time of Evaluation Date of Evaluation: 10/25/17 Time of Evaluation: 07:00 - Subjective Subjective: Patient has been seen and examined. No overnight events reported. Patient does complain of the way his foot is wrapped. I explained that it could have gotten loose overnight but he stated it was loose before he went to sleep. Patient complains of burning pain on his effected toe. He states that percocet gives him abdominal discomfort and nausea and asked to be switched back to morphine. He denies any fevers, chills, chest pain, SOB, abdominal pain, n/v/d, constipation, or any urinary symptoms. Objective - Vital Signs/Intake and Output Vital Signs (last 24 hours): Temp Pulse Resp BP Pulse Ox 98.4 F 103 H 20 108/65 95 10/25/17 08:18 10/25/17 08:18 10/25/17 08:18 10/25/17 08:18 10/25/17 08:18 Intake and Output: 10/25/17 10/25/17 06:59 18:59 Intake Total 300 Balance 300 - Medications Medications: Current Medications Albuterol/Ipratropium (Duoneb 3 Mg/0.5 Mg (3 Ml) Ud) 3 ml IH [id number] PRN PRN Reason: Shortness of Breath Aspirin (Aspirin Chewable) 81 mg PO DAILY [facility] Last Admin: 10/25/17 09:00 Dose: 81 mg Cilostazol (Pletal) 100 mg PO BID [facility] Last Admin: 10/25/17 09:00 Dose: 100 mg Docusate Sodium (Colace) 100 mg PO DAILY [facility] Enoxaparin Sodium (Lovenox) 40 mg SC DAILY [facility] Last Admin: 10/25/17 09:00 Dose: 40 mg Ferrous Sulfate (Feosol) 324 mg PO TID [facility] Gabapentin (Neurontin) 300 mg PO TID [facility] PRN Reason: Protocol Last Admin: 10/25/17 09:01 Dose: 300 mg Sodium Chloride (Sodium Chloride 0.9%) 1,000 mls @ 150 mls/hr IV .Q6H40M [facility] Last Admin: 10/25/17 06:26 Dose: 150 mls/hr Vancomycin HCl (Vancomycin 1gm) 1 gm in 250 mls @ 167 mls/hr IVPB DAILY [facility] PRN Reason: Protocol Last Admin: 10/25/17 09:20 Dose: 167 mls/hr Piperacillin Sod/Tazobactam Sod (Zosyn 3.375 In Ns 100ml) 100 mls @ 200 mls/hr IVPB Q6 [facility] PRN Reason: Protocol Stop: 11/02/17 00:01 Last Admin: 10/25/17 06:28 Dose: 200 mls/hr Morphine Sulfate (Morphine) 2 mg IVP Q4H PRN PRN Reason: Pain, moderate (4-7) Last Admin: 10/25/17 09:00 Dose: 2 mg Nicotine (Nicoderm Cq) 1 patch TD DAILY [facility] Last Admin: 10/25/17 09:01 Dose: 1 patch Oxycodone/Acetaminophen (Percocet 5/325 Mg Tab) 1 tab PO Q4H PRN PRN Reason: Pain, moderate (4-7) Stop: 10/27/17 17:52 Pantoprazole Sodium (Protonix Ec Tab) 40 mg PO ACB [facility] Last Admin: 10/25/17 09:01 Dose: 40 mg - Labs Labs: 10/25/17 06:45 10/25/17 07:15 PT 14.6 SECONDS (9.4-12.5) H 10/23/17 13:00 INR 1.32 (0.93-1.08) H 10/23/17 13:00 - Additional Findings Additional findings: - Constitutional Appears: Toxic, In Acute Distress - Head Exam Head Exam: ATRAUMATIC, NORMAL INSPECTION, NORMOCEPHALIC - Eye Exam Eye Exam: Normal appearance - ENT Exam ENT Exam: Mucous Membranes Moist - Respiratory Exam Respiratory Exam: Clear to Ausculation Bilateral. absent: Rales, Rhonchi, Wheezes - Cardiovascular Exam Cardiovascular Exam: Tachycardia, REGULAR RHYTHM, +S1, +S2. absent: Murmur - GI/Abdominal Exam GI & Abdominal Exam: Soft, Normal Bowel Sounds. absent: Distended, Firm, Guarding, Tenderness, Organomegaly - Extremities Exam Extremities Exam: absent: Pedal Edema Additional comments: b/l lower extremities warm to palpation and normal color Left ankle lateral malleolus ulceration measuring approximately 4cm x 3cm Right foot 2nd and 3rd digits dry and gangrenous +2 Post. Tibialis puls b/l. + 1 pedis Dorsalis pulse b/l. - Neurological Exam Neurological Exam: Alert, Awake, Oriented x 3 - Psychiatric Exam Psychiatric exam: Normal Mood, Normal Affect Assessment and Plan - Assessment and Plan (Free Text) Assessment: 62 male with history of PAD s/p L SFA revascularization and L external iliac stent placement in 07/2017, cellulitis, HTN, nephrolithiasis, tobacco/cocaine/ opiate use and migraines who presented to the ED c/o right foot pain for the past 3 days associated with subjective fever/nausea/vomiting Plan: PAD in RLE w/ weak pulses and painful R toe - Right foot xray pending official read - LE arterial duplex pending - Angiogram was originally scheuled on 09/18/[address] Dickens however patient had left AMA - Continue with ASA 81mg PO daily - Continue with cilostazol 100mg PO BID - Pain control - Zofran PRN - afebrile, however with leukocytosis of 14.3 - Gram Stain NEGATIVE B/L. Blood Culture-NEGATIVE - ProCal - 7.27 - ID consulted - Dr. Portillo. Recs Appreciated -Cont. Zosyn - Podiatry consulted - Dr. Sanchez -Recs Appreciated - IR consulted - Dr. Dickens - Follow up Recs - Arterial Doppler Completed - PENDING READ - Amputation of gangrene toes planned for tomorrow. LLE lateral malleolus ulceration s/p debridement - Wound culture - NEGATIVE - Blood Culture - NEGATIVE - Podiatry consulted - cont Vanc and Zosyn 3. polysubstance abuse - Drug screen pending - Ordered - Will likely cancel. 4. Hx of tobacco abuse - nicoderm patch - counseled on smoking cessation 5. Hx of anemia - history of iron deficiency anemia - Started Iron Supplementation - continue to monitor H/H - Patient refused labs today. 6. Hx asthma - duoneb PRN 7. GI/DVT prophylaxis -Protonix/Lovenox Patient seen and examined with Attending Rohith Choi PGY1 <Brian Alberts - Last Filed: 10/26/17 12:03> Objective - Vital Signs/Intake and Output Vital Signs (last 24 hours): Temp Pulse Resp BP Pulse Ox 97.9 F 107 H 20 134/78 97 10/26/17 07:30 10/26/17 07:30 10/26/17 07:30 10/26/17 07:30 10/26/17 07:30 Intake and Output: 10/26/17 10/26/17 06:59 18:59 Intake Total 1020 Output Total 0 Balance 1020 - Medications Medications: Current Medications Albuterol/Ipratropium (Duoneb 3 Mg/0.5 Mg (3 Ml) Ud) 3 ml IH [id number] PRN PRN Reason: Shortness of Breath Aspirin (Aspirin Chewable) 81 mg PO DAILY [facility] Last Admin: 10/26/17 10:12 Dose: 81 mg Docusate Sodium (Colace) 100 mg PO DAILY [facility] Last Admin: 10/26/17 10:11 Dose: 100 mg Enoxaparin Sodium (Lovenox) 40 mg SC DAILY [facility] Last Admin: 10/26/17 10:14 Dose: 40 mg Ferrous Sulfate (Feosol) 324 mg PO TID [facility] Last Admin: 10/26/17 10:11 Dose: 324 mg Gabapentin (Neurontin) 300 mg PO TID [facility] PRN Reason: Protocol Last Admin: 10/26/17 10:11 Dose: 300 mg Sodium Chloride (Sodium Chloride 0.9%) 1,000 mls @ 150 mls/hr IV .Q6H40M [facility] Last Admin: 10/26/17 03:05 Dose: Not Given Vancomycin HCl (Vancomycin 1gm) 1 gm in 250 mls @ 167 mls/hr IVPB DAILY [facility] PRN Reason: Protocol Last Admin: 10/26/17 10:12 Dose: 167 mls/hr Piperacillin Sod/Tazobactam Sod (Zosyn 3.375 In Ns 100ml) 100 mls @ 200 mls/hr IVPB Q6 [facility] PRN Reason: Protocol Stop: 11/02/17 00:01 Last Admin: 10/26/17 11:23 Dose: 200 mls/hr Morphine Sulfate (Morphine) 2 mg IVP Q4H PRN PRN Reason: Pain, moderate (4-7) Last Admin: 10/26/17 08:11 Dose: 2 mg Nicotine (Nicoderm Cq) 1 patch TD DAILY [facility] Last Admin: 10/26/17 10:12 Dose: 1 patch Oxycodone/Acetaminophen (Percocet 5/325 Mg Tab) 1 tab PO Q4H PRN PRN Reason: Pain, moderate (4-7) Stop: 10/27/17 17:52 Pantoprazole Sodium (Protonix Ec Tab) 40 mg PO ACB [facility] Last Admin: 10/26/17 08:12 Dose: 40 mg - Labs Labs: 10/26/17 07:00 10/26/17 07:00 PT 14.6 SECONDS (9.4-12.5) H 10/23/17 13:00 INR 1.32 (0.93-1.08) H 10/23/17 13:00 Attending/Attestation - Attestation I have personally seen and examined this patient.: Yes I have fully participated in the care of the patient.: Yes I have reviewed all pertinent clinical information, including history, physical exam and plan: Yes Notes (Text): 10/26/17 12:00 Patient was seen and examined with medical center representative. Agreed with resident assessment and plan. 62 Yrs old male with PMH of PVD,HTN,Anemia and drug abuse with right foot cellulitis and gangrene of 3rd and 4th toe, on IV antibiotics as per ID.Wound cultures are growing gram positive cocci in cluster..Podiatry evaluation is appreciated.Patient is for possible amputation of 3rd and 4th toe tomorrow. Management plan was discussed in detail with patient Education was provided.
--- NOTE | 2017-10-25 20:18 | PN ---
DATE: 10/25/2017 SUBJECTIVE: This is a 62-year-old male with peripheral vascular disease and gangrene to the toes 3 and 4 on his right foot. The patient is complaining of pain on the foot and he wanted to go home. Unfortunately, I cannot do his surgery tomorrow, he is on Pletal, which needs five days to stop this prior to surgical intervention. The patient does not want to stay here until Monday. He wants to be able to go home. I told him I would discuss this with the other doctors and speak to him in the morning. PHYSICAL EXAMINATION: At this time; VITAL SIGNS: Temperature of 98.4, his pulse rate is 103, blood pressure is 108/65, and respirations are 20. LABORATORY DATA: His labs show white blood cell count has come down to 9.2 with the IV antibiotics. His H and H is 8.4 and 28.5. His chemistry is grossly within normal limits. The patient's micro has gram-stain is pending. Blood cultures are no growth at the 48 hours. The patient refused his arterial Doppler study. He did allow them to do just Duplex scanning and the iliac graft, which Dr. Dickens did in 09/2017, appears to be open, although there is no official read on chart. The patient's foot is warm. He has wet gangrene of toes 3 and 4 to his right foot. The cellulitis is improved with the antibiotics and the edema is also improved with the antibiotics. The left lateral ankle wound is actually improving and slowly healing, that tissue is a mix of granulation and fibrous tissue and there is no signs of infection on that side. ASSESSMENT: Peripheral vascular disease with gangrene to the third and fourth toes. PLAN OF TREATMENT: Because of the wet gangrene in the recent one day leukocytosis, I suggested the patient stay and may be go to TCU while awaiting surgery while we take him off his anticoagulants. He insist he wants to go home. He does not want to stay. He did threatened me with leaving AMA and I told once he leaves [place], he will not get any antibiotics and he will just get very sick again. The patient's dressing was done by myself today. He complained that the residence dressing was not comfortable and he will be seeing and follows tomorrow. Lorin Sanchez DPM [facility] # [id number]
[2017-10-26] MEDS: Piperacillin/Tazobact 3.375 gm 100 ML IVPB SCH ×4 (00:02→18:14)
--- NOTE | 2017-10-26 00:59 | PN ---
DATE: 10/25/2017 SUBJECTIVE: The patient seen in bed, in no acute distress,nontoxic, the patient was seen early this morning. PHYSICAL EXAMINATION VITAL SIGNS: Temperature is 98, blood pressure is 99/60, respiratory rate of 20, and heart rate of 109. HEENT: Unremarkable. NECK: Supple. LUNGS: Decreased breath sounds. HEART: Normal S1 and S2. ABDOMEN: Soft. LABORATORY EXAMINATION: Reveals the white count of 9.2, hemoglobin of 8. Chemistry reveals the BUN of 12 and creatinine of 1.2. Procalcitonin 7.27. Coagulation is noted. Microbiology reveals Gram-negative salvatore and Gram-positive cocci from the left foot and right foot, there is Gram-positive cocci in clusters. Review of the orders reveal the patient to be on vancomycin and Zosyn. Dr. Sanchez's note is appreciated. ASSESSMENT AND PLAN: A 62-year-old male with severe peripheral arterial disease, chronic obstructive lung disease, staghorn calculus, migraine headaches, asthma and chronic anemia presenting with tachycardia and leukocytosis and foot infection with sepsis and the right foot cellulitis, must rule out underlining osteomyelitis. Podiatric team involved and we will follow closely with you. Delmar Portillo MD
[2017-10-26] MEDS: Sodium Chloride 0.9% 1,000 ML IV SCH (03:05)
[2017-10-26] MEDS: Morphine 2 mg/ml ISec IVP PRN ×3 (03:37→13:01)
[2017-10-26 07:30] LABS: BASO # 0.06 K/mm3 (0.0-2.0); BASO % 0.7 % (0.0-3.0); EOS # 1.1 (0.0-0.7); EOS % 12.3 % (1.5-5.0); GRAN # 4.8 (1.4-6.5); GRAN % 54.5 % (50.0-68.0); LYMPH # 2.3 (1.2-3.4); LYMPH % 26.5 % (22.0-35.0); MEAN CELL VOLUME 78.9 fl (80.0-105.0); MEAN CORPUSCULAR HEMOGLOBIN 23.1 pg (25.0-35.0); MEAN CORPUSCULAR HGB CONC 29.3 g/dl (31.0-37.0); MEAN PLATELET VOLUME 8.6 fl (7.0-11.0); MONO # 0.5 (0.1-0.6); RBC 3.42 10^6/uL (3.5-6.1); RED CELL DISTRIBUTION WIDTH 18.8 % (11.5-14.5); WHITE BLOOD COUNT 8.8 10^3/ul (4.5-11.0)
[2017-10-26 07:46] LABS: ALB/GLOB RATIO 0.8 (1.1-1.8); ALBUMIN 2.8 g/dL (3.0-4.8); ALT/SGPT 25 U/L (7-56); AST/SGOT 21 U/L (17-59); BLOOD UREA NITROGEN 13 mg/dL (7-21); CALCIUM 8.3 mg/dL (8.4-10.5); GFR AFRICAN-AMERICAN > 60; GFR NON-AFRICAN AMERICAN > 60; HEMOGLOBIN 7.9 g/dL (14.0-18.0)
[2017-10-26] MEDS: Pantoprazole 40 mg EC Tab PO SCH (08:12)
[2017-10-26] MEDS: Vancomycin 1gm in NS 250ml 1 GM/250 ML BAG IVPB SCH (10:12)
[2017-10-26] MEDS: Enoxaparin 40 mg Syringe SC SCH (10:14)
--- NOTE | 2017-10-26 12:28 | US ---
PROCEDURE: Duplex right lower extremity arterial ultrasound HISTORY: Evaluate stent patency. PVD with gangrene PHYSICIAN(S): Emmanuel Dickens MD. TECHNIQUE: FINDINGS: . IMPRESSION: The self expanding stent in the distal right external iliac artery and right common femoral artery patent. No thrombus or dissection is seen. The proximal right SFA is patent with normal waveforms.
--- NOTE | 2017-10-26 13:10 | PN ---
DATE: 10/26/2017 SUBJECTIVE: This is a 62-year-old, not diabetic, male seen for gangrene to his 3rd and 4th toes on his right foot secondary to ischemia. The patient had a procedure by Dr. Dickens early parts of September and the toes have been demarcating. He presented to the ER with wet gangrene several days ago. Patient has been on Pletal and we needed to discontinue the Pletal before any type of surgery could be done. The Pletal was discontinued yesterday, need to find day of discontinuation which brings us into Monday; however that is on New day, the OR is not open, thus he is scheduled for Monday morning for surgical amputation of 3rd and 4th toes on his right foot. Patient is very anxious. He wants to go home. I did try and get him into transitional care; however, his insurance does not pay for TCU and unfortunately he needs to stay. I told him I am not comfortable sending him home, he came in with sepsis, he still has wet gangrene, it is starting to dry and demarcate since he has been on IV antibiotics; however, a few weeks, he risks sepsis again and with blood and cardiac problems. Patient is very anxious and did ask if he would allow a Psych consult to come see him and he agreed and a Psych consult was ordered. His lower extremities were inspected, the gangrene as noted above is starting to demarcate. There is still some drainage on the dressings from the toes. There is also a small ulceration underneath the 5th toe which was becoming gangrenous, but at this point is no longer. There is no cellulitis, although malodor coming from the wounds and there is no fluctuance indicating any abscess. He has an ulceration on the lateral left arm malleoli which is now going on to heal. He had angioplasty done on the left side approximately [address] Dickens and at this time it is still open. I did send him for arterial Doppler's which he refused. The vascular lab did do a duplex scan to the lower extremity. It is not red at this time. I looked at it and preliminary,it does appear to be open; however, I need to see the full report before I could confirm this. LABORATORY DATA: His labs were reviewed. His white blood cell count is normalizing, it is 8.8. His H and H is decreasing, it is critical at 7.9 today. His hematocrit is 27.0 and his platelets are 404. Patient's chemistry shows chloride is 108, BUN and creatinine is 13 and 1.2. Calcium and total bilirubin was decreased, albumin is also low. The micro shows Gram-positive cocci in clusters and Gram-negative rods were also isolated and these are both are preliminary, both the rods and cocci were heavy growth on the culture. ASSESSMENT: Peripheral vascular disease and wet gangrene to toes 3 and 4 to the right foot. A stage III ulceration improving to the left lateral ankle. PLAN OF TREATMENT: Continue local care. Psych consult was placed on the chart. Patient is scheduled for OR on this Monday10/31/2017 at 7:30 in the morning. Lorin Sanchez DPM
--- NOTE | 2017-10-26 14:41 | CP.PCM.PN ---
Addendum entered and electronically signed by Rohith Choi DO 10/26/17 16:03: On reexamination patient complained of blood in the stool. He denied Rectal Exam. Stool occult blood has been ordered. We will consult GI. Original Note: <Rohith Choi - Last Filed: 10/26/17 14:38> Subjective - Date & Time of Evaluation Date of Evaluation: 10/26/17 Time of Evaluation: 14:38 - Subjective Subjective: Patient has been seen and examined. States that he wants to go home. No overnight events reported. Denies any fevers, chills, CP or SOB. Patient does complain of toe pain but states it being controlled with Morphine. Objective - Vital Signs/Intake and Output Vital Signs (last 24 hours): Temp Pulse Resp BP Pulse Ox 97.9 F 107 H 20 134/78 97 10/26/17 07:30 10/26/17 07:30 10/26/17 07:30 10/26/17 07:30 10/26/17 07:30 Intake and Output: 10/26/17 10/26/17 06:59 18:59 Intake Total 1020 Output Total 0 Balance 1020 - Medications Medications: Current Medications Albuterol/Ipratropium (Duoneb 3 Mg/0.5 Mg (3 Ml) Ud) 3 ml IH [id number] PRN PRN Reason: Shortness of Breath Aspirin (Aspirin Chewable) 81 mg PO DAILY [facility] Last Admin: 10/26/17 10:12 Dose: 81 mg Docusate Sodium (Colace) 100 mg PO DAILY [facility] Last Admin: 10/26/17 10:11 Dose: 100 mg Enoxaparin Sodium (Lovenox) 40 mg SC DAILY [facility] Last Admin: 10/26/17 10:14 Dose: 40 mg Ferrous Sulfate (Feosol) 324 mg PO TID [facility] Last Admin: 10/26/17 13:00 Dose: 324 mg Gabapentin (Neurontin) 300 mg PO TID [facility] PRN Reason: Protocol Last Admin: 10/26/17 13:00 Dose: 300 mg Sodium Chloride (Sodium Chloride 0.9%) 1,000 mls @ 150 mls/hr IV .Q6H40M [facility] Last Admin: 10/26/17 03:05 Dose: Not Given Vancomycin HCl (Vancomycin 1gm) 1 gm in 250 mls @ 167 mls/hr IVPB DAILY [facility] PRN Reason: Protocol Last Admin: 10/26/17 10:12 Dose: 167 mls/hr Piperacillin Sod/Tazobactam Sod (Zosyn 3.375 In Ns 100ml) 100 mls @ 200 mls/hr IVPB Q6 [facility] PRN Reason: Protocol Stop: 11/02/17 00:01 Last Admin: 10/26/17 11:23 Dose: 200 mls/hr Lorazepam (Ativan) 0.5 mg PO Q4 PRN PRN Reason: Anxiety Morphine Sulfate (Morphine) 2 mg IVP Q4H PRN PRN Reason: Pain, moderate (4-7) Last Admin: 10/26/17 13:01 Dose: 2 mg Nicotine (Nicoderm Cq) 1 patch TD DAILY [facility] Last Admin: 10/26/17 10:12 Dose: 1 patch Oxycodone/Acetaminophen (Percocet 5/325 Mg Tab) 1 tab PO Q4H PRN PRN Reason: Pain, moderate (4-7) Stop: 10/27/17 17:52 Pantoprazole Sodium (Protonix Ec Tab) 40 mg PO ACB [facility] Last Admin: 10/26/17 08:12 Dose: 40 mg - Labs Labs: 10/26/17 07:00 10/26/17 07:00 PT 14.6 SECONDS (9.4-12.5) H 10/23/17 13:00 INR 1.32 (0.93-1.08) H 10/23/17 13:00 - Additional Findings Additional findings: - Constitutional Appears: Non-Toxic, No Acute Distress - Head Exam Head Exam: ATRAUMATIC, NORMAL INSPECTION, NORMOCEPHALIC - Eye Exam Eye Exam: Normal appearance - ENT Exam ENT Exam: Mucous Membranes Moist - Respiratory Exam Respiratory Exam: Clear to Ausculation Bilateral. absent: Rales, Rhonchi, Wheezes - Cardiovascular Exam Cardiovascular Exam: RRR, +S1, +S2. absent: Murmur - GI/Abdominal Exam GI & Abdominal Exam: Soft, Normal Bowel Sounds. absent: Distended, Firm, Guarding, Tenderness, Organomegaly - Extremities Exam Extremities Exam: absent: Pedal Edema Additional comments: b/l lower extremities warm to palpation and normal color Left ankle lateral malleolus ulceration measuring approximately 4cm x 3cm Right foot 2nd and 3rd digits dry and gangrenous +2 Post. Tibialis puls b/l. + 1 pedis Dorsalis pulse b/l. - Neurological Exam Neurological Exam: Alert, Awake, Oriented x 3 - Psychiatric Exam Psychiatric exam: Normal Mood, Normal Affect Assessment and Plan - Assessment and Plan (Free Text) Assessment: 62 male with history of PAD s/p L SFA revascularization and L external iliac stent placement in 07/2017, cellulitis, HTN, nephrolithiasis, tobacco/cocaine/ opiate use and migraines who presented to the ED c/o right foot pain for the past 3 days associated with subjective fever/nausea/vomiting Plan: PAD in RLE w/ weak pulses and painful R toe - Right foot xray pending official read - LE arterial duplex pending - Angiogram was originally scheuled on 09/18/[address] Dickens however patient had left AMA - Continue with ASA 81mg PO daily - cilostazol 100mg PO BID Held for Pending Surgery by Podiatry - Pain control - Zofran PRN - afebrile, however with leukocytosis of 14.3 - Gram Stain NEGATIVE B/L. Blood Culture-NEGATIVE - ProCal - 7.27 - ID consulted - Dr. Portillo. Recs Appreciated -Cont. Zosyn/Vanc - Podiatry consulted - Dr. Sanchez -Recs Appreciated - IR consulted - Dr. Dickens - Follow up Recs - Arterial Doppler (10/24/17): Impression: Stent in the distal right external iliac artery and right femoral artery patent. The proximal right SFA is patent with normal waveforms. - Amputation of gangrene toes planned for Monday (10/31/17). Per Podiatry, patient needs to be of the Pletal (Cilostazol) for 5 days. - Hold Lovenox on Monday Iron Deficiency Anemia (Acute) - history of iron deficiency anemia - Started Iron Supplementation - continue to monitor H/H - Hemoglobin dropped to 7.9. Likely dilutional LLE lateral malleolus ulceration s/p debridement - Wound culture - NEGATIVE - Blood Culture - NEGATIVE - Podiatry consulted - cont Vanc and Zosyn Hx of tobacco abuse - nicoderm patch - counseled on smoking cessation Hx asthma - duoneb PRN GI/DVT prophylaxis -Protonix/Lovenox Patient seen and examined with Attending Rohith Choi PGY1 <Brian Alberts - Last Filed: 10/27/17 16:17> Objective - Vital Signs/Intake and Output Vital Signs (last 24 hours): Temp Pulse Resp BP Pulse Ox 98.5 F 93 H 20 129/69 93 L 10/27/17 07:30 10/27/17 07:30 10/27/17 07:30 10/27/17 07:30 10/27/17 07:30 Intake and Output: 10/27/17 10/27/17 06:59 18:59 Intake Total 1200 480 Balance 1200 480 - Medications Medications: Current Medications Albuterol/Ipratropium (Duoneb 3 Mg/0.5 Mg (3 Ml) Ud) 3 ml IH [id number] PRN PRN Reason: Shortness of Breath Aspirin (Aspirin Chewable) 81 mg PO DAILY [facility] Last Admin: 10/27/17 09:37 Dose: 81 mg Docusate Sodium (Colace) 100 mg PO DAILY [facility] Last Admin: 10/27/17 09:37 Dose: 100 mg Enoxaparin Sodium (Lovenox) 40 mg SC DAILY [facility] Last Admin: 10/27/17 14:35 Dose: 40 mg Ferrous Sulfate (Feosol) 324 mg PO TID [facility] Last Admin: 10/27/17 14:06 Dose: 324 mg Gabapentin (Neurontin) 300 mg PO TID [facility] PRN Reason: Protocol Last Admin: 10/27/17 14:06 Dose: 300 mg Piperacillin Sod/Tazobactam Sod (Zosyn 3.375 In Ns 100ml) 100 mls @ 200 mls/hr IVPB Q6 [facility] PRN Reason: Protocol Stop: 11/02/17 00:01 Last Admin: 10/27/17 11:38 Dose: 200 mls/hr Ibuprofen (Motrin Tab) 600 mg PO Q6H PRN PRN Reason: Pain, severe (8-10) Lorazepam (Ativan) 0.5 mg PO Q4 PRN PRN Reason: Anxiety Last Admin: 10/27/17 09:36 Dose: 0.5 mg Morphine Sulfate (Morphine Extended Release Tab) 15 mg PO Q12 PRN PRN Reason: Pain, severe (8-10) Last Admin: 10/27/17 09:35 Dose: 15 mg Nicotine (Nicoderm Cq) 1 patch TD DAILY [facility] Last Admin: 10/27/17 09:37 Dose: 1 patch Pantoprazole Sodium (Protonix Ec Tab) 40 mg PO ACB [facility] Last Admin: 10/27/17 09:36 Dose: 40 mg - Labs Labs: 10/27/17 07:30 10/27/17 07:30 PT 14.6 SECONDS (9.4-12.5) H 10/23/17 13:00 INR 1.32 (0.93-1.08) H 10/23/17 13:00 Attending/Attestation - Attestation I have personally seen and examined this patient.: Yes I have fully participated in the care of the patient.: Yes I have reviewed all pertinent clinical information, including history, physical exam and plan: Yes Notes (Text): 10/27/17 16:15 Patient was seen and examined with medical appointment scheduler. Agreed with resident assessment and plan. 62 Yrs old male with PMH of PVD,HTN,Anemia and drug abuse with right foot cellulitis and gangrene of 3rd and 4th toe, on IV antibiotics as per ID.Wound cultures are growing gram MSSA and enterobacer .Podiatry evaluation is appreciated. Patient hemoglobin has dropped.There is no evidence of bleeding.This could be dilutional.We will monitor,We will also check stool for occult blood. Management plan was discussed in detail with patient Education was provided.
--- NOTE | 2017-10-26 18:06 | PN ---
DATE: 10/26/2017 SUBJECTIVE: The patient is in bed, in no acute distress, nontoxic. OBJECTIVE: VITAL SIGNS: Temperature is 97, blood pressure is 130/70, respiratory rate of 20, heart rate of 92. HEENT: Unremarkable. NECK: Supple. LUNGS: Have decreased breath sounds. HEART: Normal S1, S2. ABDOMEN: Soft, nontender. LABORATORY DATA: Reveals a white count of 8.8, hemoglobin of 7 and coagulation is noted. Chemistries reveals a BUN of 13, creatinine of 1.2. Procalcitonin is 7.27 and microbiology reveals the right foot with a Staph aureus, which is oxacillin sensitive Staph aureus and the left foot with Stenotrophomonas maltophilia, Staphylococcus aureus and a gram-negative salvatore and the Staph aureus is also sensitive, Stenotrophomonas maltophilia is sensitive to Bactrim and the gram-negative salvatore has not been identified thus far. Review of orders reveals the patient to be on vancomycin and Zosyn and Dr. Sanchez's note is reviewed. The patient is scheduled for OR on Monday. ASSESSMENT AND PLAN: This is a 62-year-old male with severe peripheral arterial disease, chronic obstructive lung disease, staghorn calculus, migraine headaches, asthma, chronic anemia, presenting with tachycardia, leukocytosis, sepsis with a right foot cellulitis with a Staphylococcus, gram-negative salvatore and patient is for surgery on Monday, on vancomycin, Zosyn at this time. Delmar Portillo MD
[2017-10-26] MEDS: Morphine 15 mg SR Tab PO PRN (18:18)
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
[2017-10-27] MEDS: Morphine 15 mg SR Tab PO PRN ×3 (00:16→22:15)
[2017-10-27] MEDS: Piperacillin/Tazobact 3.375 gm 100 ML IVPB SCH ×4 (00:31→19:39)
[2017-10-27] MEDS ORDERED: Morphine 5 MG/ML SYRINGE IVP STA (07:24)
[2017-10-27 07:47] LABS: BASO # 0.07 K/mm3 (0.0-2.0); BASO % 0.7 % (0.0-3.0); EOS # 1.4 (0.0-0.7); EOS % 13.6 % (1.5-5.0); GRAN # 6.03 (1.4-6.5); GRAN % 57.3 % (50.0-68.0); HEMOGLOBIN 8.4 g/dL (14.0-18.0); LYMPH # 2.4 (1.2-3.4); MEAN CELL VOLUME 78.3 fl (80.0-105.0); MEAN CORPUSCULAR HEMOGLOBIN 23.9 pg (25.0-35.0); MEAN CORPUSCULAR HGB CONC 30.5 g/dl (31.0-37.0); MEAN PLATELET VOLUME 9.2 fl (7.0-11.0); MONO # 0.6 (0.1-0.6); MONO % 5.4 % (1.0-6.0); RBC 3.51 10^6/uL (3.5-6.1); RED CELL DISTRIBUTION WIDTH 19.1 % (11.5-14.5); WHITE BLOOD COUNT 10.5 10^3/ul (4.5-11.0)
[2017-10-27] MEDS ORDERED: Morphine 2 mg/ml ISec IVP STA (07:52)
--- NOTE | 2017-10-27 07:57 | CP.PCM.CON ---
History of Present Illness - History of Present Illness History of Present Illness: Asked by hospitalist team for a GI consultation on this patient. 62 year old male with history of polysubstance abuse (cocaine use 3 weeks prior), PAD s/p L iliac stent placement, HTN, nephrolithiasis, asthma who initially presented to hospital with complaint of progressive RLE pain. Currently he is undergoing treatment for gangrene of toes and L malleolus ulcer. GI called for evaluation of progressive anemia. Patient reports one episode of blood streaked stool with bowel movement yesterday but otherwise denies abdominal pain, nausea, vomiting, fever/chills, or change in bowel habits. No prior episodes of rectal bleeding reported by patient. Of note, he does endorse a 6 pound unintentional weight loss over the past one month. No prior endoscopic evaluation. Social history: polysubstance abuse, smokes 1 PPD cigarettes, no ETOH use Family history: reviewed, patient denies history of colon cancer Review of Systems - Review of Systems Review of Systems: - All other comprehensive 12 point review of systems performed, negative - Constitutional Constitutional: Weight Loss - Cardiovascular Cardiovascular: absent: Acrocyanosis, Chest Pain, Chest Pain at Rest, Chest Pain with Activity, Claudication, Diaphoresis, Dyspnea, Dyspnea on Exertion, Edema, Irregular Heart Rhythm, Pain Radiating to Arm/Neck/Jaw, Leg Edema, Leg Ulcers, Lightheadedness, Orthopnea, Palpitations, Paroxysmal Nocturnal Dyspnea, Pedal Edema, Radiating Pain, Rapid Heart Rate, Slow Heart Rate, Syncope, Other - Respiratory Respiratory: absent: Cough, Dyspnea, Hemoptysis, Dyspnea on Exertion, Wheezing, Snoring, Stridor, Pain on Inspiration, Chest Congestion, Excessive Mucous Production, Change in Mucous Color, Pain with Coughing, Other - Gastrointestinal Gastrointestinal: Hematochezia - Musculoskeletal Musculoskeletal: Radiating Pain into Limb - Neurological Neurological: absent: Abnormal Gait, Abnormal Hearing, Abnormal Movements, Abnormal Speech, Behavioral Changes, Burning Sensations, Confusion, Convulsions , Disequilibrium, Dizziness, Numbness, Focal Weakness, Frequent Falls, Headaches , Lack of Coordination, Loss of Vision, Memory Loss, Paresthesias, Radicular Pain, Restless Legs, Sensory Deficit, Syncope, Tingling, Tremor, Vertigo, Weakness, Other Visual Disturbances, Other Past Patient History - Infectious Disease Hx of Infectious Diseases: None - Tetanus Immunizations Tetanus Immunization: Unknown - Past Social History Smoking Status: Current Some Days Smoker - CARDIAC Hx Cardiac Disorders: Yes (ATHEROSCHLEROSIS) - PULMONARY Hx Chronic Obstructive Pulmonary Disease (COPD): Yes - NEUROLOGICAL Hx Neurological Disorder: Yes Hx Migraine: Yes - HEENT Hx HEENT Problems: No - RENAL Hx Chronic Kidney Disease: Yes Hx Kidney Stones: Yes - ENDOCRINE/METABOLIC Hx Endocrine Disorders: No - HEMATOLOGICAL/ONCOLOGICAL Hx Blood Disorders: Yes Hx Anemia: Yes - INTEGUMENTARY Hx Dermatological Problems: Yes Other/Comment: 10-23-17 RIGHT 2ND AND 3RD TOE NECROSIS. LEFT LATERAL OUTER MALLEOLUS WITH AN OPEN WOUND POST DEBRIDEMENT OF AREA.8 CM IN DM. ERYTHEMA. - MUSCULOSKELETAL/RHEUMATOLOGICAL Hx Musculoskeletal Disorders: No Hx Falls: Yes - GASTROINTESTINAL Hx Gastrointestinal Disorders: No - GENITOURINARY/GYNECOLOGICAL Hx Genitourinary Disorders: No - PSYCHIATRIC Hx Psychophysiologic Disorder: Yes (SMOKES CIGARETTES,COCAINE AND OPIATE ABUSE. CURRENTLY USING,LAST USED 3 WK) Hx Emotional Abuse: No Hx Physical Abuse: No Hx Substance Use: Yes (COCAINE AND OPIATE ABUSE.LAST USED 3 WEEKS AGO.) - SURGICAL HISTORY Hx Surgeries: Yes (L SFA REVASCULARIZATION AND L EXTERNAL ILIAC STENT . GRIFFIN LEG STENTS.) Other/Comment: stent placement to left groin - ANESTHESIA Hx Anesthesia Reactions: No Hx Malignant Hyperthermia: No Meds Allergies/Adverse Reactions: Allergies Allergy/AdvReac Type Severity Reaction Status Date / Time No Known Allergies Allergy Verified 10/23/17 18:44 - Medications Medications: Current Medications Albuterol/Ipratropium (Duoneb 3 Mg/0.5 Mg (3 Ml) Ud) 3 ml IH [id number] PRN PRN Reason: Shortness of Breath Aspirin (Aspirin Chewable) 81 mg PO DAILY [facility] Last Admin: 10/26/17 10:12 Dose: 81 mg Docusate Sodium (Colace) 100 mg PO DAILY [facility] Last Admin: 10/26/17 10:11 Dose: 100 mg Enoxaparin Sodium (Lovenox) 40 mg SC DAILY [facility] Last Admin: 10/26/17 10:14 Dose: 40 mg Ferrous Sulfate (Feosol) 324 mg PO TID [facility] Last Admin: 10/26/17 18:13 Dose: 324 mg Gabapentin (Neurontin) 300 mg PO TID [facility] PRN Reason: Protocol Last Admin: 10/26/17 18:13 Dose: 300 mg Vancomycin HCl (Vancomycin 1gm) 1 gm in 250 mls @ 167 mls/hr IVPB DAILY [facility] PRN Reason: Protocol Last Admin: 10/26/17 10:12 Dose: 167 mls/hr Piperacillin Sod/Tazobactam Sod (Zosyn 3.375 In Ns 100ml) 100 mls @ 200 mls/hr IVPB Q6 [facility] PRN Reason: Protocol Stop: 11/02/17 00:01 Last Admin: 10/27/17 05:37 Dose: 200 mls/hr Ibuprofen (Motrin Tab) 600 mg PO Q6H PRN PRN Reason: Pain, severe (8-10) Lorazepam (Ativan) 0.5 mg PO Q4 PRN PRN Reason: Anxiety Morphine Sulfate (Morphine Extended Release Tab) 15 mg PO Q12 PRN PRN Reason: Pain, severe (8-10) Last Admin: 10/27/17 00:16 Dose: 15 mg Morphine Sulfate (Morphine) 1 mg IVP STAT [facility] Stop: 10/27/17 07:25 Nicotine (Nicoderm Cq) 1 patch TD DAILY [facility] Last Admin: 10/26/17 10:12 Dose: 1 patch Pantoprazole Sodium (Protonix Ec Tab) 40 mg PO ACB [facility] Last Admin: 10/26/17 08:12 Dose: 40 mg Physical Exam - Constitutional Appears: Non-toxic, No Acute Distress - Head Exam Head Exam: NORMAL INSPECTION - Eye Exam Eye Exam: EOMI, Normal appearance - ENT Exam ENT Exam: Mucous Membranes Moist - Respiratory Exam Respiratory Exam: Clear to Auscultation Bilateral - Cardiovascular Exam Cardiovascular Exam: +S1, +S2 - GI/Abdominal Exam GI & Abdominal Exam: Normal Bowel Sounds, Soft Additional comments: non tender to palpation in four quadrants no palpable hepato/splenomegaly - Rectal Exam Additional comments: normal tone, no palpable lesions, formed dark brown stool in rectal vault, + internal hemorrhoids, no gross blood present - Extremities Exam Additional comments: RLE dressing intact, gauze pad with bloody discharge - Neurological Exam Neurological exam: Alert, CN II-XII Intact, Normal Gait, Oriented x3, Reflexes Normal - Psychiatric Exam Psychiatric exam: Normal Affect, Normal Mood - Skin Skin Exam: Dry, Intact, Normal Color, Warm Results - Vital Signs Recent Vital Signs: Last Vital Signs Temp 98.4 F 10/27/17 00:00 Pulse 100 H 10/27/17 00:00 Resp 20 10/27/17 00:00 BP 138/83 10/27/17 00:00 Pulse Ox 95 10/27/17 00:00 - Labs Result Diagrams: 10/26/17 07:00 10/26/17 07:00 Labs: Laboratory Results - last 24 hr 10/26/17 10/26/17 07:00 07:00 WBC 8.8 RBC 3.42 L Hgb 7.9 L Hct 27.0 L MCV 78.9 L MCH 23.1 L MCHC 29.3 L RDW 18.8 H Plt Count 404 MPV 8.6 Gran % 54.5 Lymph % (Auto) 26.5 Louisa % (Auto) 6.0 Eos % (Auto) 12.3 H Baso % (Auto) 0.7 Gran # 4.80 Lymph # 2.3 Louisa # 0.5 Eos # 1.1 H Baso # 0.06 Sodium 143 Potassium 4.3 Chloride 108 H Carbon Dioxide 27 Anion Gap 12 BUN 13 Creatinine 1.2 Est GFR ( Amer) > 60 Est GFR (Non-Af Amer) > 60 Random Glucose 81 Calcium 8.3 L Total Bilirubin 0.1 L AST 21 ALT 25 Alkaline Phosphatase 81 Total Protein 6.3 Albumin 2.8 L Globulin 3.5 Albumin/Globulin Ratio 0.8 L Assessment & Plan - Assessment and Plan (Free Text) Assessment: HTN PAD s/p L iliac stent Asthma Polysubstance abuse Anemia, microcytic iron deficiency RLE gangrene, L malleolus ulcer Plan: - Diet as tolerated - Continue to monitor H/H and transfuse as necessary. Rectal exam today does not show any features of overt bleeding. - Continue with antibiotic therapy as per ID - Follow up podiatry and vascular recommendations - No further planned GI interventions. Patient would certainly benefit from endoscopic evaluation given microcytic iron deficiency anemia with unexplained weight loss and no prior colonoscopy, however this should be performed electively as outpatient following resolution of acute peripheral vascular and infectious issues. Office contact information provided to patient. Will sign off case, please reconsult as necessary, thank you.
[2017-10-27 07:59] LABS: ALB/GLOB RATIO 0.8 (1.1-1.8); ALBUMIN 3.1 g/dL (3.0-4.8); ALT/SGPT 18 U/L (7-56); AST/SGOT 20 U/L (17-59); BLOOD UREA NITROGEN 11 mg/dL (7-21); CALCIUM 8.4 mg/dL (8.4-10.5); GFR AFRICAN-AMERICAN > 60; GFR NON-AFRICAN AMERICAN > 60
[2017-10-27] MEDS ORDERED: Potassium Chloride 20 mEq ER Tab PO ONE (09:11)
[2017-10-27] MEDS: Pantoprazole 40 mg EC Tab PO SCH (09:36)
[2017-10-27] MEDS: Vancomycin 1gm in NS 250ml 1 GM/250 ML BAG IVPB SCH (09:42)
--- NOTE | 2017-10-27 12:35 | PN ---
DATE: 10/27/2017 SUBJECTIVE: The patient is in bed, in no acute distress, nontoxic. PHYSICAL EXAMINATION: VITAL SIGNS: Temperature is 98, blood pressure is 120/60, respiratory rate of 18. HEENT: Unremarkable. NECK: Supple. LUNGS: Decreased breath sounds. HEART: Normal S1, S2. ABDOMEN: Soft, nontender. EXTREMITIES: Examination of foot is noted. LABORATORY DATA: Reveals a white count of 10,000, hemoglobin of 8. BUN of 11, creatinine of 1.1. Microbiology reveals the patient's Staph aureus on the right foot and the Staph aureus pansensitive with oxacillin has a sensitivity less than 0.25 and the left foot had Stenotrophomonas maltophilia, Staph aureus and Enterobacter cloacae. The Staph aureus is also sensitive and Stenotrophomonas is sensitive to Bactrim and Enterobacter is also relatively sensitive. Review of orders reveals the patient to be on vancomycin and Zosyn. We will discontinue vancomycin since the patient's Staph is sensitive. ASSESSMENT AND PLAN: This is a 62-year-old male with severe peripheral arterial disease, chronic obstructive lung disease, staghorn calculus, migraine headaches, asthma, chronic anemia presenting with tachycardia, leukocytosis, sepsis with right foot cellulitis, sensitive Staphylococcus. We will discontinue vancomycin. Continue Zosyn, pending patient is awaiting for surgery. Delmar Portillo MD
--- NOTE | 2017-10-27 12:46 | CP.PCM.PN ---
<Rohith Choi - Last Filed: 10/27/17 12:59> Subjective - Date & Time of Evaluation Date of Evaluation: 10/27/17 Time of Evaluation: 11:00 - Subjective Subjective: Patient has been seen and examined. Patient complained of congestion overnight and was given pseuodephedrine which he stated doesn't work. Patient also tripped and hit his left 3rd toe causing the nail to fall off. that was wrapped yesterday. Patient still states he has an 8/10 toe pain even with the PO morphine but I suspect that he is beginning to be med-seeking. Objective - Vital Signs/Intake and Output Vital Signs (last 24 hours): Temp Pulse Resp BP Pulse Ox 98.5 F 93 H 20 129/69 93 L 10/27/17 07:30 10/27/17 07:30 10/27/17 07:30 10/27/17 07:30 10/27/17 07:30 Intake and Output: 10/27/17 10/27/17 06:59 18:59 Intake Total 1200 Balance 1200 - Medications Medications: Current Medications Albuterol/Ipratropium (Duoneb 3 Mg/0.5 Mg (3 Ml) Ud) 3 ml IH [id number] PRN PRN Reason: Shortness of Breath Aspirin (Aspirin Chewable) 81 mg PO DAILY [facility] Last Admin: 10/27/17 09:37 Dose: 81 mg Docusate Sodium (Colace) 100 mg PO DAILY [facility] Last Admin: 10/27/17 09:37 Dose: 100 mg Enoxaparin Sodium (Lovenox) 40 mg SC DAILY [facility] Last Admin: 10/26/17 10:14 Dose: 40 mg Ferrous Sulfate (Feosol) 324 mg PO TID [facility] Last Admin: 10/27/17 09:35 Dose: 324 mg Gabapentin (Neurontin) 300 mg PO TID [facility] PRN Reason: Protocol Last Admin: 10/27/17 09:35 Dose: 300 mg Piperacillin Sod/Tazobactam Sod (Zosyn 3.375 In Ns 100ml) 100 mls @ 200 mls/hr IVPB Q6 [facility] PRN Reason: Protocol Stop: 11/02/17 00:01 Last Admin: 10/27/17 11:38 Dose: 200 mls/hr Ibuprofen (Motrin Tab) 600 mg PO Q6H PRN PRN Reason: Pain, severe (8-10) Lorazepam (Ativan) 0.5 mg PO Q4 PRN PRN Reason: Anxiety Last Admin: 10/27/17 09:36 Dose: 0.5 mg Morphine Sulfate (Morphine Extended Release Tab) 15 mg PO Q12 PRN PRN Reason: Pain, severe (8-10) Last Admin: 10/27/17 09:35 Dose: 15 mg Nicotine (Nicoderm Cq) 1 patch TD DAILY [facility] Last Admin: 10/27/17 09:37 Dose: 1 patch Pantoprazole Sodium (Protonix Ec Tab) 40 mg PO ACB [facility] Last Admin: 10/27/17 09:36 Dose: 40 mg - Labs Labs: 10/27/17 07:30 10/27/17 07:30 PT 14.6 SECONDS (9.4-12.5) H 10/23/17 13:00 INR 1.32 (0.93-1.08) H 10/23/17 13:00 - Additional Findings Additional findings: - Constitutional Appears: Non-Toxic, No Acute Distress - Head Exam Head Exam: ATRAUMATIC, NORMAL INSPECTION, NORMOCEPHALIC - Eye Exam Eye Exam: Normal appearance - ENT Exam ENT Exam: Mucous Membranes Moist - Respiratory Exam Respiratory Exam: Clear to Ausculation Bilateral. absent: Rales, Rhonchi, Wheezes - Cardiovascular Exam Cardiovascular Exam: RRR, +S1, +S2. absent: Murmur - GI/Abdominal Exam GI & Abdominal Exam: Soft, Normal Bowel Sounds. absent: Distended, Firm, Guarding, Tenderness, Organomegaly - Extremities Exam Extremities Exam: absent: Pedal Edema Additional comments: b/l lower extremities warm to palpation and normal color Left ankle lateral malleolus ulceration measuring approximately 4cm x 3cm Right foot 2nd and 3rd digits dry and gangrenous +2 Post. Tibialis puls b/l. + 1 pedis Dorsalis pulse b/l. Left 3rd toe missing nail. Wrapped. - Neurological Exam Neurological Exam: Alert, Awake, Oriented x 3 - Psychiatric Exam Psychiatric exam: Normal Mood, Normal Affect Assessment and Plan - Assessment and Plan (Free Text) Assessment: 62 male with history of PAD s/p L SFA revascularization and L external iliac stent placement in 07/2017, cellulitis, HTN, nephrolithiasis, tobacco/cocaine/ opiate use and migraines who presented to the ED c/o right foot pain for the past 3 days associated with subjective fever/nausea/vomiting Plan: PAD in RLE w/ weak pulses and painful R toe - Right foot xray pending official read - LE arterial duplex pending - Angiogram was originally scheuled on 09/18/[address] Dickens however patient had left AMA - Continue with ASA 81mg PO daily - cilostazol 100mg PO BID Held for Pending Surgery by Podiatry - Pain control - Zofran PRN - afebrile - Gram Stain NEGATIVE B/L. Blood Culture-NEGATIVE - ProCal - 7 - ID consulted - Dr. Portillo. Recs Appreciated -Zosyn. Vanc DC'd - Podiatry consulted - Dr. Sanchez -Recs Appreciated - IR consulted - Dr. Dickens - Follow up Recs - Arterial Doppler (10/24/17): Impression: Stent in the distal right external iliac artery and right femoral artery patent. The proximal right SFA is patent with normal waveforms. - Amputation of gangrene toes planned for Monday (10/31/17). Per Podiatry, patient needs to be of the Pletal (Cilostazol) for 5 days. - Awaiting TCU Eval. - Right Foot Wound Culture - Staphylococcus Aereus. - Left Foot Wound Culture - Stenotrophomonas Maltophilia, Staph Aureus, Enterobacter Clocae Ssp Cloac. - TCU eval - PENDING Bloody Stool - GI consulted - Recs appreciated -Recommends elective Outpatient colonoscopy and EGD -Rectal exam shows no signs of overt bleeding. Iron Deficiency Anemia (Stable) - history of iron deficiency anemia - Cont. Iron Supplementation - continue to monitor H/H LLE lateral malleolus ulceration s/p debridement - Wound culture - NEGATIVE - Blood Culture - NEGATIVE - Podiatry consulted - Recs appreciated - Vanc DC'd - Zosyn per ID Hx of tobacco abuse - nicoderm patch - counseled on smoking cessation Hx asthma - duoneb PRN GI/DVT prophylaxis -Protonix/Lovenox Patient seen and examined with Attending Rohith Choi PGY1 <Brian Alberts - Last Filed: 10/28/17 11:02> Objective - Vital Signs/Intake and Output Vital Signs (last 24 hours): Temp Pulse Resp BP Pulse Ox 98.9 F 92 H 20 133/69 94 L 10/28/17 08:07 10/28/17 08:07 10/28/17 08:07 10/28/17 08:07 10/28/17 08:07 Intake and Output: 10/28/17 10/28/17 06:59 18:59 Intake Total 140 Balance 140 - Medications Medications: Current Medications Albuterol/Ipratropium (Duoneb 3 Mg/0.5 Mg (3 Ml) Ud) 3 ml IH [id number] PRN PRN Reason: Shortness of Breath Aspirin (Aspirin Chewable) 81 mg PO DAILY [facility] Last Admin: 10/28/17 10:11 Dose: 81 mg Docusate Sodium (Colace) 100 mg PO DAILY [facility] Last Admin: 10/28/17 10:11 Dose: 100 mg Enoxaparin Sodium (Lovenox) 40 mg SC DAILY [facility] Last Admin: 10/28/17 10:10 Dose: Not Given Ferrous Sulfate (Feosol) 324 mg PO TID [facility] Last Admin: 10/28/17 10:11 Dose: 324 mg Gabapentin (Neurontin) 300 mg PO TID [facility] PRN Reason: Protocol Last Admin: 10/28/17 10:11 Dose: 300 mg Piperacillin Sod/Tazobactam Sod (Zosyn 3.375 In Ns 100ml) 100 mls @ 200 mls/hr IVPB Q6 [facility] PRN Reason: Protocol Stop: 11/02/17 00:01 Last Admin: 10/28/17 05:56 Dose: 200 mls/hr Ibuprofen (Motrin Tab) 600 mg PO Q6H PRN PRN Reason: Pain, severe (8-10) Lorazepam (Ativan) 0.5 mg PO Q4 PRN PRN Reason: Anxiety Last Admin: 10/27/17 17:01 Dose: 0.5 mg Mupirocin (Bactroban Ointment) 0 gm TOP DAILY [facility] Last Admin: 10/28/17 10:10 Dose: Not Given Nicotine (Nicoderm Cq) 1 patch TD DAILY [facility] Last Admin: 10/28/17 10:19 Dose: Not Given Pantoprazole Sodium (Protonix Ec Tab) 40 mg PO ACB [facility] Last Admin: 10/28/17 10:11 Dose: 40 mg Tramadol HCl (Ultram) 25 mg PO Q6H [facility] Last Admin: 10/28/17 10:11 Dose: 25 mg - Labs Labs: 10/28/17 09:00 10/28/17 09:00 PT 14.6 SECONDS (9.4-12.5) H 10/23/17 13:00 INR 1.32 (0.93-1.08) H 10/23/17 13:00 Attending/Attestation - Attestation I have personally seen and examined this patient.: Yes I have fully participated in the care of the patient.: Yes I have reviewed all pertinent clinical information, including history, physical exam and plan: Yes Notes (Text): 10/28/17 10:59 Patient was seen and examined with biomedical equipment specialist. Agreed with resident assessment and plan. 62 yrs old male with PMH of PVD,HTN,Anemia and drug abuse with right foot cellulitis and gangrene of 3rd and 4th toe, .Wound cultures are growing MSSA and enterobacter on on IV antibiotics as per ID.Patient is scheduled for surgery on 10.31.17. Hemoglobin is stable, Anemia is microcytic hypochromic, GI evaluation is appreciated, will need out patient Colonoscopy and EGD. Management plan was discussed in detail with patient Education was provided. 10/28/17 11:01
--- NOTE | 2017-10-27 12:57 | PN ---
DATE: SUBJECTIVE: A 62-year-old noncompliant male seen at bedside for continued evaluation and management of gangrenous right second and third toes secondary to severe peripheral vascular disease. The patient was revascularized by Dr. Dickens, and most recent ultrasound reveals patent arteries to the lower extremity. During dressing change, the patient became agitated and verbally abusive stating that this is the hospital's fault that he is in this situation and he is blaming the doctors and the nurses. I reminded him that he checked out against medical advice not once but twice during previous stays and had tested positive for cocaine, which he had been told numerous times during visits is the powerful vasoconstrictor and would result in possible limb loss if he continued to do so. The patient is scheduled for amputation of the right second and third toes on 10/31/2017. OBJECTIVE: VITAL SIGNS: Revealed temperature of 98.5, pulse rate of 93, blood pressure of 129/69, and respiratory rate of 20. LABORATORY FINDINGS: Reveal white count of 10.5 is down from 14.3 upon admission, hemoglobin of 8.4, hematocrit of 27.5, and platelet count of 443. Duplex scan performed on 10/20/2017 reveals the presence of self-expanding stent in the distal right external iliac artery and right common femoral artery, which are patent. The proximal right superficial femoral artery is patent with normal wave lengths. X-rays of the right foot revealed no radiographic evidence of cortical destruction to suggest osteomyelitis. Most recent culture reveals gram-positive cocci in clusters and gram-negative rods. ASSESSMENT: Weakly palpable posterior tibial pulse and nonpalpable dorsalis pedis pulse noted bilaterally. The patient is unable to detect 5.07 g monofilament wire testing bilaterally. Lower extremity skin presents thin, shining discolored bilaterally. There is noted to be stevo pain wet gangrene of the distal aspects of the right second and third toes, which appears to have demarcated at this point. There is no malodor. There is no purulence to suggest underlying abscess formation. There is pain upon palpation. The patient presents with superficial abrasion on the left third digit secondary to banging his foot earlier today. The area is void of any probing to bone. There is no purulence to suggest underlying abscess formation. ASSESSMENT: Gangrene of the right second and third digits secondary to severe peripheral vascular disease, superficial abrasion to the left third digit. PLAN: The patient was once again verbally abusive during dressing change and is telling me and the nursing staff how to apply his dressings the way he wants. His wounds were cleansed with normal sterile saline. We applied Betadine and a dry sterile dressing. We will order Bactroban ointment for the abrasion on his left third toe, which will be dressed with a dry sterile dressing daily. The patient will be seen and followed. Tristin Fonseca DPM [id number]
[2017-10-27] MEDS: Enoxaparin 40 mg Syringe SC SCH (14:35)
[2017-10-28] MEDS: Piperacillin/Tazobact 3.375 gm 100 ML IVPB SCH ×4 (00:05→17:01)
[2017-10-28 09:17] LABS: BASO # 0.07 K/mm3 (0.0-2.0); BASO % 0.5 % (0.0-3.0); EOS # 1.6 (0.0-0.7); EOS % 11.6 % (1.5-5.0); GRAN # 9.11 (1.4-6.5); GRAN % 67.5 % (50.0-68.0); HEMOGLOBIN 8.5 g/dL (14.0-18.0); LYMPH # 2.1 (1.2-3.4); LYMPH % 15.6 % (22.0-35.0); MEAN CELL VOLUME 79.2 fl (80.0-105.0); MEAN CORPUSCULAR HEMOGLOBIN 23.2 pg (25.0-35.0); MEAN CORPUSCULAR HGB CONC 29.3 g/dl (31.0-37.0); MEAN PLATELET VOLUME 8.6 fl (7.0-11.0); MONO # 0.7 (0.1-0.6); MONO % 4.8 % (1.0-6.0); RBC 3.66 10^6/uL (3.5-6.1); RED CELL DISTRIBUTION WIDTH 18.9 % (11.5-14.5); WHITE BLOOD COUNT 13.5 10^3/ul (4.5-11.0)
[2017-10-28 09:22] LABS: ALB/GLOB RATIO 0.8 (1.1-1.8); ALBUMIN 3.2 g/dL (3.0-4.8); ALT/SGPT 22 U/L (7-56); AST/SGOT 24 U/L (17-59); BLOOD UREA NITROGEN 11 mg/dL (7-21); CALCIUM 8.3 mg/dL (8.4-10.5); GFR AFRICAN-AMERICAN > 60; GFR NON-AFRICAN AMERICAN > 60
[2017-10-28] MEDS: Enoxaparin 40 mg Syringe SC SCH (10:10)
[2017-10-28] MEDS: Pantoprazole 40 mg EC Tab PO SCH (10:11)
--- NOTE | 2017-10-28 10:21 | CP.PCM.PN ---
<Rohith Choi - Last Filed: 10/28/17 10:17> Subjective - Date & Time of Evaluation Date of Evaluation: 10/28/17 Time of Evaluation: 10:18 - Subjective Subjective: Patient has been seen and examined. No overnight events reported. He continues to complain of toe pain. Denies any fevers, chest pain or SOB. Objective - Vital Signs/Intake and Output Vital Signs (last 24 hours): Temp Pulse Resp BP Pulse Ox 98.9 F 92 H 20 133/69 94 L 10/28/17 08:07 10/28/17 08:07 10/28/17 08:07 10/28/17 08:07 10/28/17 08:07 Intake and Output: 10/28/17 10/28/17 06:59 18:59 Intake Total 140 Balance 140 - Medications Medications: Current Medications Albuterol/Ipratropium (Duoneb 3 Mg/0.5 Mg (3 Ml) Ud) 3 ml IH [id number] PRN PRN Reason: Shortness of Breath Aspirin (Aspirin Chewable) 81 mg PO DAILY [facility] Last Admin: 10/27/17 09:37 Dose: 81 mg Docusate Sodium (Colace) 100 mg PO DAILY [facility] Last Admin: 10/27/17 09:37 Dose: 100 mg Enoxaparin Sodium (Lovenox) 40 mg SC DAILY [facility] Last Admin: 10/27/17 14:35 Dose: 40 mg Ferrous Sulfate (Feosol) 324 mg PO TID [facility] Last Admin: 10/27/17 17:01 Dose: 324 mg Gabapentin (Neurontin) 300 mg PO TID [facility] PRN Reason: Protocol Last Admin: 10/27/17 17:01 Dose: 300 mg Piperacillin Sod/Tazobactam Sod (Zosyn 3.375 In Ns 100ml) 100 mls @ 200 mls/hr IVPB Q6 [facility] PRN Reason: Protocol Stop: 11/02/17 00:01 Last Admin: 10/28/17 05:56 Dose: 200 mls/hr Ibuprofen (Motrin Tab) 600 mg PO Q6H PRN PRN Reason: Pain, severe (8-10) Lorazepam (Ativan) 0.5 mg PO Q4 PRN PRN Reason: Anxiety Last Admin: 10/27/17 17:01 Dose: 0.5 mg Mupirocin (Bactroban Ointment) 0 gm TOP DAILY [facility] Nicotine (Nicoderm Cq) 1 patch TD DAILY [facility] Last Admin: 10/27/17 09:37 Dose: 1 patch Pantoprazole Sodium (Protonix Ec Tab) 40 mg PO ACB [facility] Last Admin: 10/27/17 09:36 Dose: 40 mg Tramadol HCl (Ultram) 25 mg PO Q6H [facility] - Labs Labs: 10/28/17 09:00 10/28/17 09:00 PT 14.6 SECONDS (9.4-12.5) H 10/23/17 13:00 INR 1.32 (0.93-1.08) H 10/23/17 13:00 - Additional Findings Additional findings: - Constitutional Appears: Non-Toxic, No Acute Distress - Head Exam Head Exam: ATRAUMATIC, NORMAL INSPECTION, NORMOCEPHALIC - Eye Exam Eye Exam: Normal appearance - ENT Exam ENT Exam: Mucous Membranes Moist - Respiratory Exam Respiratory Exam: Clear to Ausculation Bilateral. absent: Rales, Rhonchi, Wheezes - Cardiovascular Exam Cardiovascular Exam: RRR, +S1, +S2. absent: Murmur - GI/Abdominal Exam GI & Abdominal Exam: Soft, Normal Bowel Sounds. absent: Distended, Firm, Guarding, Tenderness, Organomegaly - Extremities Exam Extremities Exam: absent: Pedal Edema Additional comments: b/l lower extremities warm to palpation and normal color Left ankle lateral malleolus ulceration measuring approximately 4cm x 3cm Right foot 2nd and 3rd digits dry and gangrenous +2 Post. Tibialis puls b/l. + 1 pedis Dorsalis pulse b/l. Left 3rd toe missing nail. Wrapped. - Neurological Exam Neurological Exam: Alert, Awake, Oriented x 3 - Psychiatric Exam Psychiatric exam: Anxious, Normal Affect Assessment and Plan - Assessment and Plan (Free Text) Assessment: 62 male with history of PAD s/p L SFA revascularization and L external iliac stent placement in 07/2017, cellulitis, HTN, nephrolithiasis, tobacco/cocaine/ opiate use and migraines who presented to the ED c/o right foot pain for the past 3 days associated with subjective fever/nausea/vomiting Plan: PAD in RLE w/ weak pulses and painful R toe - Right foot xray pending official read - LE arterial duplex pending - Angiogram was originally scheuled on 09/18/[address] Dickens however patient had left AMA - Continue with ASA 81mg PO daily - cilostazol 100mg PO BID Held for Pending Surgery by Podiatry - Pain control - Zofran PRN - afebrile - Gram Stain NEGATIVE B/L. Blood Culture-NEGATIVE - ProCal - 7 - ID consulted - Dr. Portillo. Recs Appreciated -Zosyn. Vanc DC'd - Podiatry consulted - Dr. Sanchez -Recs Appreciated - IR consulted - Dr. Dickens - Follow up Recs - Arterial Doppler (10/24/17): Impression: Stent in the distal right external iliac artery and right femoral artery patent. The proximal right SFA is patent with normal waveforms. - Amputation of gangrene toes planned for Monday (10/31/17). Per Podiatry, patient needs to be of the Pletal (Cilostazol) for 5 days. - Awaiting TCU Eval. - Right Foot Wound Culture - Staphylococcus Aereus. - Left Foot Wound Culture - Stenotrophomonas Maltophilia, Staph Aureus, Enterobacter Clocae Ssp Cloac. - TCU eval - PENDING - Tramadol 26 Q6H for Pain control. Tylenol makes patient "sick". Bloody Stool - GI consulted - Recs appreciated -Recommends elective Outpatient colonoscopy and EGD -Rectal exam shows no signs of overt bleeding. Iron Deficiency Anemia (Stable) - history of iron deficiency anemia - Cont. Iron Supplementation - continue to monitor H/H LLE lateral malleolus ulceration s/p debridement - Wound culture - NEGATIVE - Blood Culture - NEGATIVE - Podiatry consulted - Recs appreciated - Vanc DC'd - Zosyn per ID Hx of tobacco abuse - nicoderm patch - counseled on smoking cessation Hx asthma - duoneb PRN GI/DVT prophylaxis -Protonix/Lovenox Patient seen and examined with Attending Rohith Choi PGY1 <Brian Alberts - Last Filed: 10/28/17 11:06> Objective - Vital Signs/Intake and Output Vital Signs (last 24 hours): Temp Pulse Resp BP Pulse Ox 98.9 F 92 H 20 133/69 94 L 10/28/17 08:07 10/28/17 08:07 10/28/17 08:07 10/28/17 08:07 10/28/17 08:07 Intake and Output: 10/28/17 10/28/17 06:59 18:59 Intake Total 140 Balance 140 - Medications Medications: Current Medications Albuterol/Ipratropium (Duoneb 3 Mg/0.5 Mg (3 Ml) Ud) 3 ml IH [id number] PRN PRN Reason: Shortness of Breath Aspirin (Aspirin Chewable) 81 mg PO DAILY [facility] Last Admin: 10/28/17 10:11 Dose: 81 mg Docusate Sodium (Colace) 100 mg PO DAILY [facility] Last Admin: 10/28/17 10:11 Dose: 100 mg Enoxaparin Sodium (Lovenox) 40 mg SC DAILY [facility] Last Admin: 10/28/17 10:10 Dose: Not Given Ferrous Sulfate (Feosol) 324 mg PO TID [facility] Last Admin: 10/28/17 10:11 Dose: 324 mg Gabapentin (Neurontin) 300 mg PO TID [facility] PRN Reason: Protocol Last Admin: 10/28/17 10:11 Dose: 300 mg Piperacillin Sod/Tazobactam Sod (Zosyn 3.375 In Ns 100ml) 100 mls @ 200 mls/hr IVPB Q6 [facility] PRN Reason: Protocol Stop: 11/02/17 00:01 Last Admin: 10/28/17 05:56 Dose: 200 mls/hr Ibuprofen (Motrin Tab) 600 mg PO Q6H PRN PRN Reason: Pain, severe (8-10) Lorazepam (Ativan) 0.5 mg PO Q4 PRN PRN Reason: Anxiety Last Admin: 10/27/17 17:01 Dose: 0.5 mg Mupirocin (Bactroban Ointment) 0 gm TOP DAILY [facility] Last Admin: 10/28/17 10:10 Dose: Not Given Nicotine (Nicoderm Cq) 1 patch TD DAILY [facility] Last Admin: 10/28/17 10:19 Dose: Not Given Pantoprazole Sodium (Protonix Ec Tab) 40 mg PO ACB [facility] Last Admin: 10/28/17 10:11 Dose: 40 mg Tramadol HCl (Ultram) 25 mg PO Q6H [facility] Last Admin: 10/28/17 10:11 Dose: 25 mg - Labs Labs: 10/28/17 09:00 10/28/17 09:00 PT 14.6 SECONDS (9.4-12.5) H 10/23/17 13:00 INR 1.32 (0.93-1.08) H 10/23/17 13:00 Attending/Attestation - Attestation I have personally seen and examined this patient.: Yes I have fully participated in the care of the patient.: Yes I have reviewed all pertinent clinical information, including history, physical exam and plan: Yes Notes (Text): 10/28/17 11:04 Patient was seen and examined with biomedical equipment specialist. Agreed with resident assessment and plan. 62 yrs old male with PMH of PVD,HTN,Anemia and drug abuse with right foot cellulitis and gangrene of 3rd and 4th toe, .Wound cultures are growing MSSA and enterobacter on on IV antibiotics as per ID.Patient is scheduled for surgery next week on Monday. Hemoglobin is stable, Anemia is microcytic hypochromic, Iron deficiency , no active bleeding , GI evaluation is appreciated, will need out patient Colonoscopy and EGD. Management plan was discussed in detail with patient Education was provided.
--- NOTE | 2017-10-28 11:17 | PN ---
DATE: SUBJECTIVE: A 62-year-old noncompliant male, seen at bedside for continued evaluation and management of gangrenous right second and third digits secondary to severe peripheral vascular disease. The patient allowed us to change his dressing today without being verbally abusive. He has been afebrile but still complains of pain even though he is given morphine as scheduled. He is set for amputation of the right second and third digit on 10/31/2017. OBJECTIVE: Temperature of 98.9, pulse rate of 92, blood pressure of 133/69, respiratory rate 20. Microbiology report reveals Staphylococcus aureus growth at the right toes. White blood cell count is 13.5, hemoglobin of 8.5, hematocrit of 29, platelet count of 463. X-rays taken of the right foot revealed no radiographic evidence suggestive of cortical destruction indicative of osteomyelitis. Duplex scan performed on 10/20/2017 reveals self-expanding stent in the distal right external iliac artery and right common femoral artery, both of which are patent at this point. The proximal right superficial artery also remains patent with normal wavelengths. ASSESSMENT: Weakly palpable dorsalis pedis pulse, weakly palpable posterior tibial pulse, and nonpalpable dorsalis pedis pulse noted bilaterally. The patient is unable to detect 5.07 g monofilament wire testing bilaterally. Lower extremity skin presents thin, shining discolored bilaterally. There is a full-thickness ulceration located on the left lateral ankle. The wound does not probe the tendon or bone. The base of the ulcer is a mixture of fibrotic and granular tissue. There is noted to be serous drainage only. No purulence to suggest underlying abscess formation. The patient presents with a traumatically avulsed left third digit toenail secondary to trauma sustained yesterday. It is granular with minimal serous drainage. There was no purulence to suggest underlying abscess formation. There are no signs of cellulitis or ascending cellulitis. The right second and third digits present with stevo gangrene at the distal aspects of the digits. There is noted to be no malodor. There is no purulence to suggest underlying abscess formation. There is no malodor. The gangrenous wounds appeared to have demarcated. ASSESSMENT: Gangrene of the right second and third digit secondary to peripheral vascular disease, full-thickness lateral ankle ulceration, traumatic nail avulsion of the left third digit with underlying ulceration. PLAN: The wounds were all cleansed with normal sterile saline. We applied Optifoam to the left lateral ankle ulceration and Bactroban with a dry sterile dressing to the left third digit. The gangrenous digits were cleansed with normal sterile saline and Betadine solution and a dry sterile dressing was applied. The patient is scheduled for amputation of the right second and third digits on 10/31/2016. We will allow Lovenox to be given Monday morning and is to be stopped at that time. We will continue to change all dressings until then. Forefoot offloading shoe was ordered to offload the front of his right foot after his surgery. However, it has not been delivered yet as it is ordered from an outside pharmacy. Hopefully, by Monday, the shoe should be in. Tristin Fonseca DPM [id number]
[2017-10-28] MEDS ORDERED: Oxycodone/Acetaminophen 5/325 mg Tab PO PRN (17:55)
[2017-10-28] MEDS ORDERED: Morphine 5 MG/ML SYRINGE IVP STA (17:55)
[2017-10-28] MEDS ORDERED: Morphine 2 mg/ml ISec IVP STA (17:58)
[2017-10-28] MEDS: Oxycodone/Acetaminophen 5/325 mg Tab PO PRN (21:17)
[2017-10-29] MEDS: Piperacillin/Tazobact 3.375 gm 100 ML IVPB SCH ×5 (00:13→23:40)
--- NOTE | 2017-10-29 01:42 | PN ---
DATE: 10/28/2017 SUBJECTIVE: The patient is seen in bed, in no acute distress. PHYSICAL EXAMINATION: VITAL SIGNS: Temperature is 98, blood pressure is 130/60, and respiratory rate of 16. HEENT: Unremarkable. NECK: Supple. LUNGS: Have decreased breath sounds. HEART: Normal S1 and S2. ABDOMEN: Soft. LABORATORY DATA: Reveals a white count of 13,500, hemoglobin of 8, and platelets of 463. Chemistries reveal the patient's BUN of 11 and creatinine of 1.1. Microbiology is noted sensitive to Staph and Enterobacter. ASSESSMENT AND PLAN: This is a 62-year-old male with severe peripheral vascular disease, chronic obstructive lung disease, staghorn calculus, migraine headaches, asthma, chronic anemia presenting with tachycardia, leukocytosis, sepsis with right foot cellulitis, and sensitive to Staphylococcus. Currently on Zosyn. The patient is for possible surgery. which I will do so. Delmar Portillo MD
[2017-10-29] MEDS: Oxycodone/Acetaminophen 5/325 mg Tab PO PRN ×3 (05:14→19:10)
[2017-10-29] MEDS: Pantoprazole 40 mg EC Tab PO SCH (09:20)
[2017-10-29] MEDS: Enoxaparin 40 mg Syringe SC SCH (09:21)
--- NOTE | 2017-10-29 10:09 | PN ---
DATE: 10/29/2017 SUBJECTIVE: The patient is seen earlier today in 574, bed 1. No fevers and no chills. PHYSICAL EXAMINATION: VITAL SIGNS: Temperature is 98, blood pressure is 120/70, and respiratory rate of 16. HEENT: Unremarkable. NECK: Supple. LUNGS: Have decreased breath sounds. HEART: Normal S1 and S2. ABDOMEN: Soft and nontender. LABORATORY DATA: Reveals white count of 13,500, hemoglobin of 8, and platelets of 436. Chemistries are BUN of 11 and creatinine of 1.0 and microbiology is noted. ASSESSMENT AND PLAN: A 62-year-old male with severe peripheral vascular disease, chronic obstructive lung disease, Staghorn calculus, migraine headaches, asthma, and chronic anemia, presenting with tachycardia, leukocytosis, sepsis, right foot cellulitis with sensitive Staphylococcus, also with Enterobacter cloacae and Stenotrophomonas maltophilia on another culture, sensitive to Zosyn. We follow with you. Delmar Portillo MD
--- NOTE | 2017-10-29 13:11 | CP.PCM.PN ---
<Patrice Herrera - Last Filed: 10/29/17 13:07> Subjective - Date & Time of Evaluation Date of Evaluation: 10/29/17 Time of Evaluation: 13:07 - Subjective Subjective: Podiatry Progress Note- Dr. Fonseca/Dr. 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 Patient is seen resting comfortably in bed, in NAD, and in AA0x3. Patient reports that he is in severe pain, rating his pain 10/10. Patient reports that the pain medication given to him is helping. Patient denies n/v/sob /cp/chills/f or d. Patient is aware that he will be going to the OR for amputation of right 2nd and 3rd digit. No new pedal complaints today. Objective - Vital Signs/Intake and Output Vital Signs (last 24 hours): Temp Pulse Resp BP Pulse Ox 97.7 F 98 H 18 139/91 H 98 10/29/17 07:52 10/29/17 07:52 10/29/17 07:52 10/29/17 07:52 10/29/17 07:52 Intake and Output: 10/29/17 10/29/17 06:59 18:59 Intake Total 1260 Balance 1260 - Medications Medications: Current Medications Albuterol/Ipratropium (Duoneb 3 Mg/0.5 Mg (3 Ml) Ud) 3 ml IH [id number] PRN PRN Reason: Shortness of Breath Aspirin (Aspirin Chewable) 81 mg PO DAILY [facility] Last Admin: 10/29/17 09:20 Dose: 81 mg Docusate Sodium (Colace) 100 mg PO DAILY [facility] Last Admin: 10/29/17 09:20 Dose: 100 mg Enoxaparin Sodium (Lovenox) 40 mg SC DAILY [facility] Stop: 10/30/17 07:30 Last Admin: 10/29/17 09:21 Dose: Not Given Ferrous Sulfate (Feosol) 324 mg PO TID [facility] Last Admin: 10/29/17 09:20 Dose: 324 mg Gabapentin (Neurontin) 300 mg PO TID [facility] PRN Reason: Protocol Last Admin: 10/29/17 09:19 Dose: 300 mg Piperacillin Sod/Tazobactam Sod (Zosyn 3.375 In Ns 100ml) 100 mls @ 200 mls/hr IVPB Q6 [facility] PRN Reason: Protocol Stop: 11/02/17 00:01 Last Admin: 10/29/17 05:25 Dose: 200 mls/hr Ibuprofen (Motrin Tab) 600 mg PO Q6H PRN PRN Reason: Pain, severe (8-10) Lorazepam (Ativan) 0.5 mg PO Q4 PRN PRN Reason: Anxiety Last Admin: 10/27/17 17:01 Dose: 0.5 mg Mupirocin (Bactroban Ointment) 0 gm TOP DAILY [facility] Last Admin: 10/28/17 10:10 Dose: Not Given Nicotine (Nicoderm Cq) 1 patch TD DAILY [facility] Last Admin: 10/29/17 09:21 Dose: Not Given Oxycodone/Acetaminophen (Percocet 5/325 Mg Tab) 1 tab PO Q6H PRN PRN Reason: Pain, severe (8-10) Stop: 11/03/17 22:01 Last Admin: 10/29/17 05:14 Dose: 1 tab Pantoprazole Sodium (Protonix Ec Tab) 40 mg PO ACB [facility] Last Admin: 10/29/17 09:20 Dose: 40 mg - Labs Labs: 10/28/17 09:00 10/28/17 09:00 PT 14.6 SECONDS (9.4-12.5) H 10/23/17 13:00 INR 1.32 (0.93-1.08) H 10/23/17 13:00 - Constitutional Appears: Well, Non-toxic, No Acute Distress - Extremities Exam Additional comments: Lower extremity focused examination: Vasc: Bilateral DP and PT nonpalpable, temperature is cool to cool from proximal to distal toes, CFT >4 seconds, no edema noted DERM: LEFT: Open ulceration noted to the left ankle lateral malleolus measuring approximately 4cm x 3cm x .2cm, wound base is 90% fibrotic and 10% granular. No eschar noted to the wound base during this visitation, periwound is slightly macerated but intact, mild erythema noted to the periwound, no increase warmth, no streaking, no purulence, no active drainage, no odor, no tunneling, no undermining noted or probe to bone noted. No fluctuance or abscess -improving 3rd nail plate is absent nail bed. Hemmorhagic debris noted surrounding dorsum of 3rd digit. Nail bed is granular in nature, no drainage, no odor, no increase calor, no probe to bone, no abscess, no flucatuance. RIGHT: 2nd and 3rd digit is necrotic with demarcation to the digits noted, wet gangrene noted to the plantar aspect of the 2nd digit. 3rd digit gangrene has become dry from wet gangrene. Slight maceration noted to the 2nd interspace. Malodorous. There is no purulence or abscess noted. No drainage noted. Hyperpigmentation noted to the plantar aspect of 5th sulcus. Neuro: gross sensation intact bilaterally Ortho: severe pain with palpation of skin surrounding ulceration sites, MM is 5/ 5 in dorsiflexion, plantarflexion, eversion, and inversion - Neurological Exam Neurological Exam: Alert, Awake, Oriented x3 - Psychiatric Exam Psychiatric exam: Normal Affect, Normal Mood Assessment and Plan - Assessment and Plan (Free Text) Assessment: 62 y.o male with 1) right 2nd and 3rd digit gangrene 2) left lateral malleolus ulceration 3) left 3rd digit nail plate avulsion secondary to trauma. Plan: Patient seen and evaluated at bedside Discussed the plan in detail with attending Dr. Sanchez/Dr. Fonseca Vitals, labs, charts reviewed (afebrile, WBC trended up WBC=13.5) Duplex LE Right (10/24/17) Impression: The self expanding stent in the distal right external iliac artery and right common femoral artery patent. No thrombus or dissection is seen. The proximal right SFA is patent with normal waveforms. X-rays R foot (10/23/17) Impression: No acute findings related to/accounting for clinical presentation Right dressing changed with betadine application, 4x4 gauze between interspaces , dsd, and kerlix Left ulceration cleansed with saline solution, optifoam applied Left 3rd digit- dsd applied. Will apply mupricin tomorrow with dsd C/W Zosyn per ID C/w pain management per team Patient may be WB. Surgical shoe to L and forefoot offloading shoe to the R. Should be worn at all times when ambulating Patient will go to the OR Monday at 7:30am for amputation of 2nd and 3rd right digits. Patient understands and agrees Pletal d/c- need total of 5 days prior to surgery Lovenox scheduled to stop Monday morning Patient was told to not drink or eat anything after midnight on Monday Will continue to follow while in house <MartymickeyhardeepTristin - Last Filed: 10/31/17 10:54> Objective - Vital Signs/Intake and Output Vital Signs (last 24 hours): Temp Pulse Resp BP Pulse Ox 98.1 F 107 H 18 109/57 L 95 10/31/17 09:15 10/31/17 09:15 10/31/17 09:15 10/31/17 09:15 10/31/17 09:15 Intake and Output: 10/31/17 10/31/17 06:59 18:59 Intake Total 1110 75 Balance 1110 75 - Medications Medications: Current Medications Acetaminophen (Tylenol 325mg Tab) 650 mg PO Q4H PRN PRN Reason: Pain, Mild (1-3) Albuterol/Ipratropium (Duoneb 3 Mg/0.5 Mg (3 Ml) Ud) 3 ml IH [id number] PRN PRN Reason: Shortness of Breath Aspirin (Aspirin Chewable) 81 mg PO DAILY [facility] Last Admin: 10/31/17 10:29 Dose: Not Given Docusate Sodium (Colace) 100 mg PO DAILY [facility] Last Admin: 10/31/17 10:29 Dose: Not Given Ferrous Sulfate (Feosol) 324 mg PO TID [facility] Last Admin: 10/31/17 10:29 Dose: Not Given Gabapentin (Neurontin) 300 mg PO TID [facility] PRN Reason: Protocol Last Admin: 10/31/17 10:29 Dose: Not Given Piperacillin Sod/Tazobactam Sod (Zosyn 3.375 In Ns 100ml) 100 mls @ 200 mls/hr IVPB Q6 [facility] PRN Reason: Protocol Stop: 11/02/17 00:01 Last Admin: 10/31/17 06:47 Dose: 200 mls/hr Lactated Ringer's (Lactated Ringer's) 1,000 mls @ 75 mls/hr IV .[id number] [facility] Stop: 10/31/17 11:01 Ibuprofen (Motrin Tab) 600 mg PO Q6H PRN PRN Reason: Pain, severe (8-10) Lorazepam (Ativan) 0.5 mg PO Q4 PRN PRN Reason: Anxiety Last Admin: 10/27/17 17:01 Dose: 0.5 mg Mupirocin (Bactroban Ointment) 0 gm TOP DAILY [facility] Last Admin: 10/31/17 10:30 Dose: Not Given Nicotine (Nicoderm Cq) 1 patch TD DAILY [facility] Last Admin: 10/31/17 10:29 Dose: Not Given Oxycodone/Acetaminophen (Percocet 5/325 Mg Tab) 1 tab PO Q6H PRN PRN Reason: Pain, severe (8-10) Stop: 11/03/17 22:01 Last Admin: 10/29/17 19:10 Dose: 1 tab Oxycodone/Acetaminophen (Percocet 5/325 Mg Tab) 1 tab PO Q4H PRN PRN Reason: Pain, moderate (4-7) Stop: 11/03/17 08:49 Oxycodone/Acetaminophen (Percocet 5/325 Mg Tab) 2 tab PO Q4H PRN PRN Reason: Pain, severe (8-10) Stop: 11/03/17 08:49 Last Admin: 10/31/17 10:25 Dose: 2 tab Pantoprazole Sodium (Protonix Ec Tab) 40 mg PO ACB [facility] Last Admin: 10/31/17 07:30 Dose: Not Given - Labs Labs: 10/30/17 07:30 10/30/17 07:30 PT 14.6 SECONDS (9.4-12.5) H 10/23/17 13:00 INR 1.32 (0.93-1.08) H 10/23/17 13:00 Attending/Attestation - Attestation I have personally seen and examined this patient.: Yes I have fully participated in the care of the patient.: Yes I have reviewed all pertinent clinical information, including history, physical exam and plan: Yes
--- NOTE | 2017-10-29 13:27 | CP.PCM.PN ---
<Rohith Choi - Last Filed: 10/29/17 13:20> Subjective - Date & Time of Evaluation Date of Evaluation: 10/29/17 Time of Evaluation: 13:20 - Subjective Subjective: Patient has been seen and examined. No overnight events reported. Is aware of surgery on Monday. Patient continues to complain of his foot pain. He states the percocet works but only for about 3-4 hours before it comes back. Objective - Vital Signs/Intake and Output Vital Signs (last 24 hours): Temp Pulse Resp BP Pulse Ox 97.7 F 98 H 18 139/91 H 98 10/29/17 07:52 10/29/17 07:52 10/29/17 07:52 10/29/17 07:52 10/29/17 07:52 Intake and Output: 10/29/17 10/29/17 06:59 18:59 Intake Total 1260 Balance 1260 - Medications Medications: Current Medications Albuterol/Ipratropium (Duoneb 3 Mg/0.5 Mg (3 Ml) Ud) 3 ml IH [id number] PRN PRN Reason: Shortness of Breath Aspirin (Aspirin Chewable) 81 mg PO DAILY [facility] Last Admin: 10/29/17 09:20 Dose: 81 mg Docusate Sodium (Colace) 100 mg PO DAILY [facility] Last Admin: 10/29/17 09:20 Dose: 100 mg Enoxaparin Sodium (Lovenox) 40 mg SC DAILY [facility] Stop: 10/30/17 07:30 Last Admin: 10/29/17 09:21 Dose: Not Given Ferrous Sulfate (Feosol) 324 mg PO TID [facility] Last Admin: 10/29/17 13:00 Dose: 324 mg Gabapentin (Neurontin) 300 mg PO TID [facility] PRN Reason: Protocol Last Admin: 10/29/17 13:00 Dose: 300 mg Piperacillin Sod/Tazobactam Sod (Zosyn 3.375 In Ns 100ml) 100 mls @ 200 mls/hr IVPB Q6 [facility] PRN Reason: Protocol Stop: 11/02/17 00:01 Last Admin: 10/29/17 12:59 Dose: 200 mls/hr Ibuprofen (Motrin Tab) 600 mg PO Q6H PRN PRN Reason: Pain, severe (8-10) Lorazepam (Ativan) 0.5 mg PO Q4 PRN PRN Reason: Anxiety Last Admin: 10/27/17 17:01 Dose: 0.5 mg Mupirocin (Bactroban Ointment) 0 gm TOP DAILY [facility] Last Admin: 10/29/17 12:05 Dose: 1 applic Nicotine (Nicoderm Cq) 1 patch TD DAILY [facility] Last Admin: 10/29/17 09:21 Dose: Not Given Oxycodone/Acetaminophen (Percocet 5/325 Mg Tab) 1 tab PO Q6H PRN PRN Reason: Pain, severe (8-10) Stop: 11/03/17 22:01 Last Admin: 10/29/17 13:04 Dose: 1 tab Pantoprazole Sodium (Protonix Ec Tab) 40 mg PO ACB [facility] Last Admin: 10/29/17 09:20 Dose: 40 mg - Labs Labs: 10/28/17 09:00 10/28/17 09:00 PT 14.6 SECONDS (9.4-12.5) H 10/23/17 13:00 INR 1.32 (0.93-1.08) H 10/23/17 13:00 - Additional Findings Additional findings: - Additional Findings Additional findings: - Constitutional Appears: Non-Toxic, No Acute Distress - Head Exam Head Exam: ATRAUMATIC, NORMAL INSPECTION, NORMOCEPHALIC - Eye Exam Eye Exam: Normal appearance - ENT Exam ENT Exam: Mucous Membranes Moist - Respiratory Exam Respiratory Exam: Clear to Ausculation Bilateral. absent: Rales, Rhonchi, Wheezes - Cardiovascular Exam Cardiovascular Exam: RRR, +S1, +S2. absent: Murmur - GI/Abdominal Exam GI & Abdominal Exam: Soft, Normal Bowel Sounds. absent: Distended, Firm, Guarding, Tenderness, Organomegaly - Extremities Exam Extremities Exam: absent: Pedal Edema Additional comments: b/l lower extremities warm to palpation and normal color Left ankle lateral malleolus ulceration measuring approximately 4cm x 3cm Right foot 2nd and 3rd digits dry and gangrenous +2 Post. Tibialis puls b/l. + 1 pedis Dorsalis pulse b/l. Left 3rd toe missing nail. Wrapped. - Neurological Exam Neurological Exam: Alert, Awake, Oriented x 3 - Psychiatric Exam Psychiatric exam: Anxious, Normal Affect Assessment and Plan - Assessment and Plan (Free Text) Assessment: 62 male with history of PAD s/p L SFA revascularization and L external iliac stent placement in 07/2017, cellulitis, HTN, nephrolithiasis, tobacco/cocaine/ opiate use and migraines who presented to the ED c/o right foot pain for the past 3 days associated with subjective fever/nausea/vomiting Plan: PAD in RLE w/ weak pulses and painful R toe - Right foot xray pending official read - Continue with ASA 81mg PO daily - cilostazol 100mg PO BID (Held) for Pending Surgery by Podiatry - Pain control: Many negotiations with this patient regarding pain control Currently on Percocet 5/325 Q6H and PRN Ibuprofen. - Zofran PRN - afebrile - Gram Stain NEGATIVE B/L. Blood Culture-NEGATIVE - ProCal - 7 - ID consulted - Dr. Portillo. Recs Appreciated -Zosyn. Vanc DC'd - Podiatry consulted - Dr. Sanchez -Recs Appreciated - IR consulted - Dr. Dickens - Follow up Recs - Arterial Doppler (10/24/17): Impression: Stent in the distal right external iliac artery and right femoral artery patent. The proximal right SFA is patent with normal waveforms. - Amputation of gangrene toes planned for Monday (10/31/17). Per Podiatry, patient needs to be of the Pletal (Cilostazol) for 5 days. - Awaiting TCU Eval. - Right Foot Wound Culture - Staphylococcus Aereus. - Left Foot Wound Culture - Stenotrophomonas Maltophilia, Staph Aureus, Enterobacter Clocae Ssp Cloac. Cont. Zosyn. - TCU eval - PENDING Bloody Stool - GI consulted - Recs appreciated -Recommends elective Outpatient colonoscopy and EGD -Rectal exam shows no signs of overt bleeding. Iron Deficiency Anemia (Stable) - history of iron deficiency anemia - Cont. Iron Supplementation - continue to monitor H/H LLE lateral malleolus ulceration s/p debridement - Wound culture - NEGATIVE - Blood Culture - NEGATIVE - Podiatry consulted - Recs appreciated - Zosyn per ID Hx of tobacco abuse - nicoderm patch - counseled on smoking cessation Hx asthma - duoneb PRN GI/DVT prophylaxis -Protonix/Lovenox Patient seen and examined with Attending Rohith Choi PGY1 <Carla,Anwar A - Last Filed: 10/29/17 14:20> Objective - Vital Signs/Intake and Output Vital Signs (last 24 hours): Temp Pulse Resp BP Pulse Ox 97.7 F 98 H 18 139/91 H 98 10/29/17 07:52 10/29/17 07:52 10/29/17 07:52 10/29/17 07:52 10/29/17 07:52 Intake and Output: 10/29/17 10/29/17 06:59 18:59 Intake Total 1260 Balance 1260 - Medications Medications: Current Medications Albuterol/Ipratropium (Duoneb 3 Mg/0.5 Mg (3 Ml) Ud) 3 ml IH [id number] PRN PRN Reason: Shortness of Breath Aspirin (Aspirin Chewable) 81 mg PO DAILY [facility] Last Admin: 10/29/17 09:20 Dose: 81 mg Docusate Sodium (Colace) 100 mg PO DAILY [facility] Last Admin: 10/29/17 09:20 Dose: 100 mg Enoxaparin Sodium (Lovenox) 40 mg SC DAILY [facility] Stop: 10/30/17 07:30 Last Admin: 10/29/17 09:21 Dose: Not Given Ferrous Sulfate (Feosol) 324 mg PO TID [facility] Last Admin: 10/29/17 13:00 Dose: 324 mg Gabapentin (Neurontin) 300 mg PO TID [facility] PRN Reason: Protocol Last Admin: 10/29/17 13:00 Dose: 300 mg Piperacillin Sod/Tazobactam Sod (Zosyn 3.375 In Ns 100ml) 100 mls @ 200 mls/hr IVPB Q6 [facility] PRN Reason: Protocol Stop: 11/02/17 00:01 Last Admin: 10/29/17 12:59 Dose: 200 mls/hr Ibuprofen (Motrin Tab) 600 mg PO Q6H PRN PRN Reason: Pain, severe (8-10) Lorazepam (Ativan) 0.5 mg PO Q4 PRN PRN Reason: Anxiety Last Admin: 10/27/17 17:01 Dose: 0.5 mg Mupirocin (Bactroban Ointment) 0 gm TOP DAILY [facility] Last Admin: 10/29/17 12:05 Dose: 1 applic Nicotine (Nicoderm Cq) 1 patch TD DAILY [facility] Last Admin: 10/29/17 09:21 Dose: Not Given Oxycodone/Acetaminophen (Percocet 5/325 Mg Tab) 1 tab PO Q6H PRN PRN Reason: Pain, severe (8-10) Stop: 11/03/17 22:01 Last Admin: 10/29/17 13:04 Dose: 1 tab Pantoprazole Sodium (Protonix Ec Tab) 40 mg PO ACB [facility] Last Admin: 10/29/17 09:20 Dose: 40 mg - Labs Labs: 10/28/17 09:00 10/28/17 09:00 PT 14.6 SECONDS (9.4-12.5) H 10/23/17 13:00 INR 1.32 (0.93-1.08) H 10/23/17 13:00 Attending/Attestation - Attestation I have personally seen and examined this patient.: Yes I have fully participated in the care of the patient.: Yes I have reviewed all pertinent clinical information, including history, physical exam and plan: Yes Notes (Text): 10/29/17 14:14 62 year old male with past medical history of PVD, hypertension and substance abuse who presented right foot cellulitis and gangrene of 3rd/4th toe. Continue with iv antibiotics as per ID and wound care as per podiatry. Plan is for surgery this Monday. He is on aspirin and is pletal is on hold for planned surgery. He also has microcytic anemia. GI has recommended outpatient EGD/colonoscopy. Bruce Aguirre MD Hospitalist.
[2017-10-30] MEDS: Piperacillin/Tazobact 3.375 gm 100 ML IVPB SCH ×4 (06:01→23:02)
--- NOTE | 2017-10-30 08:14 | CP.PCM.PN ---
<Patricia Clarke - Last Filed: 10/30/17 14:57> Subjective - Date & Time of Evaluation Date of Evaluation: 10/30/17 Time of Evaluation: 08:12 - Subjective Subjective: PGY-2 Prorgess note for hospitalist service Patient seen and examined at bedside, no acute distress. Nurse reports no acute events overnight. Patient is resting comfortably, eating breakfast. He has no complaints. Objective - Vital Signs/Intake and Output Vital Signs (last 24 hours): Temp Pulse Resp BP Pulse Ox 97.7 F 98 H 18 139/91 H 98 10/29/17 07:52 10/29/17 07:52 10/29/17 07:52 10/29/17 07:52 10/29/17 07:52 Intake and Output: 10/30/17 10/30/17 06:59 18:59 Intake Total 720 Balance 720 - Medications Medications: Current Medications Albuterol/Ipratropium (Duoneb 3 Mg/0.5 Mg (3 Ml) Ud) 3 ml IH [id number] PRN PRN Reason: Shortness of Breath Aspirin (Aspirin Chewable) 81 mg PO DAILY [facility] Last Admin: 10/29/17 09:20 Dose: 81 mg Docusate Sodium (Colace) 100 mg PO DAILY [facility] Last Admin: 10/29/17 09:20 Dose: 100 mg Ferrous Sulfate (Feosol) 324 mg PO TID [facility] Last Admin: 10/29/17 17:28 Dose: 324 mg Gabapentin (Neurontin) 300 mg PO TID [facility] PRN Reason: Protocol Last Admin: 10/29/17 17:28 Dose: 300 mg Piperacillin Sod/Tazobactam Sod (Zosyn 3.375 In Ns 100ml) 100 mls @ 200 mls/hr IVPB Q6 [facility] PRN Reason: Protocol Stop: 11/02/17 00:01 Last Admin: 10/30/17 06:01 Dose: 200 mls/hr Ibuprofen (Motrin Tab) 600 mg PO Q6H PRN PRN Reason: Pain, severe (8-10) Lorazepam (Ativan) 0.5 mg PO Q4 PRN PRN Reason: Anxiety Last Admin: 10/27/17 17:01 Dose: 0.5 mg Mupirocin (Bactroban Ointment) 0 gm TOP DAILY [facility] Last Admin: 10/29/17 12:05 Dose: 1 applic Nicotine (Nicoderm Cq) 1 patch TD DAILY [facility] Last Admin: 10/29/17 09:21 Dose: Not Given Oxycodone/Acetaminophen (Percocet 5/325 Mg Tab) 1 tab PO Q6H PRN PRN Reason: Pain, severe (8-10) Stop: 11/03/17 22:01 Last Admin: 10/29/17 19:10 Dose: 1 tab Pantoprazole Sodium (Protonix Ec Tab) 40 mg PO ACB [facility] Last Admin: 10/29/17 09:20 Dose: 40 mg - Labs Labs: 10/28/17 09:00 10/28/17 09:00 PT 14.6 SECONDS (9.4-12.5) H 10/23/17 13:00 INR 1.32 (0.93-1.08) H 10/23/17 13:00 - Additional Findings Additional findings: patient refused physical exam Assessment and Plan - Assessment and Plan (Free Text) Assessment: 62 male with history of PAD s/p L SFA revascularization and L external iliac stent placement in 07/2017, cellulitis, HTN, nephrolithiasis, tobacco/cocaine/ opiate use and migraines who presented to the ED c/o right foot pain found to have cellulitis, PAD and gangrene Plan: 1. PAD in RLE w/ weak pulses and painful R toe - Right foot xray no acute findings - Continue with ASA 81mg PO daily - cilostazol 100mg PO BID (Held) for Pending Surgery by Podiatry - Pain control: Currently on Percocet 5/325 Q6H and PRN Ibuprofen. - Zofran PRN - afebrile - wound cultures staphycoccus aureus of right foot and stenotrophomonas maltophilia, Staph Aureus, Enterobacter of left foot - Blood Culture-NEGATIVE - ProCal - 7.27 - ID consulted - Dr. Portillo. Recommended Zosyn. Vanc DC'd - Podiatry consulted - Dr. Sanchez -Recs Appreciated - IR consulted - Dr. Dickens - Follow up Recs - Arterial Doppler (10/24/17) Impression: Stent in the distal right external iliac artery and right femoral artery patent. The proximal right SFA is patent with normal waveforms. - Amputation of gangrene toes planned for Monday (10/31/17). Per Podiatry, patient needs to be of the Pletal (Cilostazol) for 5 days. - Cont. Zosyn. 2. Bloody Stool - GI consulted -Recommends elective Outpatient colonoscopy and EGD -Rectal exam shows no signs of overt bleeding. 3. Iron Deficiency Anemia (Stable) - history of iron deficiency anemia - Cont. Iron Supplementation - continue to monitor H/H 4. LLE lateral malleolus ulceration s/p debridement - Wound culture - stenotrophomonas maltophilia, Staph Aureus, Enterobacter quinton left foot - Blood Culture - NEGATIVE - Podiatry consulted - Recs appreciated - Zosyn per ID 5. Hx of tobacco abuse - nicoderm patch - counseled on smoking cessation 6. Hx asthma - duoneb PRN GI/DVT prophylaxis -Protonix/Lovenox Patient seen and examined with Attending <Bruce Aguirre - Last Filed: 10/30/17 15:04> Objective - Vital Signs/Intake and Output Vital Signs (last 24 hours): Temp Pulse Resp BP Pulse Ox 98.6 F 96 H 20 125/75 98 10/30/17 08:00 10/30/17 08:00 10/30/17 08:00 10/30/17 08:00 10/30/17 08:00 Intake and Output: 10/30/17 10/30/17 06:59 18:59 Intake Total 720 360 Balance 720 360 - Medications Medications: Current Medications Albuterol/Ipratropium (Duoneb 3 Mg/0.5 Mg (3 Ml) Ud) 3 ml IH [id number] PRN PRN Reason: Shortness of Breath Aspirin (Aspirin Chewable) 81 mg PO DAILY [facility] Last Admin: 10/30/17 10:14 Dose: 81 mg Docusate Sodium (Colace) 100 mg PO DAILY [facility] Last Admin: 10/30/17 10:14 Dose: 100 mg Ferrous Sulfate (Feosol) 324 mg PO TID [facility] Last Admin: 10/30/17 10:15 Dose: 324 mg Gabapentin (Neurontin) 300 mg PO TID [facility] PRN Reason: Protocol Last Admin: 10/30/17 10:15 Dose: 300 mg Piperacillin Sod/Tazobactam Sod (Zosyn 3.375 In Ns 100ml) 100 mls @ 200 mls/hr IVPB Q6 [facility] PRN Reason: Protocol Stop: 11/02/17 00:01 Last Admin: 10/30/17 12:54 Dose: 200 mls/hr Ibuprofen (Motrin Tab) 600 mg PO Q6H PRN PRN Reason: Pain, severe (8-10) Lorazepam (Ativan) 0.5 mg PO Q4 PRN PRN Reason: Anxiety Last Admin: 10/27/17 17:01 Dose: 0.5 mg Mupirocin (Bactroban Ointment) 0 gm TOP DAILY [facility] Last Admin: 10/29/17 12:05 Dose: 1 applic Nicotine (Nicoderm Cq) 1 patch TD DAILY [facility] Last Admin: 10/30/17 10:15 Dose: Not Given Oxycodone/Acetaminophen (Percocet 5/325 Mg Tab) 1 tab PO Q6H PRN PRN Reason: Pain, severe (8-10) Stop: 11/03/17 22:01 Last Admin: 10/29/17 19:10 Dose: 1 tab Pantoprazole Sodium (Protonix Ec Tab) 40 mg PO ACB [facility] Last Admin: 10/30/17 10:14 Dose: 40 mg - Labs Labs: 10/30/17 07:30 10/30/17 07:30 PT 14.6 SECONDS (9.4-12.5) H 10/23/17 13:00 INR 1.32 (0.93-1.08) H 10/23/17 13:00 Attending/Attestation - Attestation I have personally seen and examined this patient.: Yes I have fully participated in the care of the patient.: Yes I have reviewed all pertinent clinical information, including history, physical exam and plan: Yes Notes (Text): 10/30/17 15:03 62 year old male with past medical history of PVD, hypertension and substance abuse who presented right foot cellulitis and gangrene of 3rd/4th toe. Continue with iv antibiotics as per ID and wound care as per podiatry. Plan is for surgery tomorrow as per podiatry. He is on aspirin and is pletal is on hold for planned surgery. He also has microcytic anemia. Continue with iron supplementation. GI has recommended outpatient EGD/colonoscopy. Bruce Aguirre MD Hospitalist.
[2017-10-30 08:15] LABS: HEMOGLOBIN 8.5 g/dL (14.0-18.0); MEAN CELL VOLUME 79.2 fl (80.0-105.0); MEAN CORPUSCULAR HEMOGLOBIN 23.3 pg (25.0-35.0); MEAN CORPUSCULAR HGB CONC 29.4 g/dl (31.0-37.0); MEAN PLATELET VOLUME 8.7 fl (7.0-11.0); RBC 3.65 10^6/uL (3.5-6.1); RED CELL DISTRIBUTION WIDTH 19.3 % (11.5-14.5); WHITE BLOOD COUNT 13.5 10^3/ul (4.5-11.0)
[2017-10-30 08:18] LABS: BLOOD UREA NITROGEN 12 mg/dL (7-21); CALCIUM 9.2 mg/dL (8.4-10.5); GFR AFRICAN-AMERICAN > 60; GFR NON-AFRICAN AMERICAN > 60
[2017-10-30] MEDS: Pantoprazole 40 mg EC Tab PO SCH (10:14)
--- NOTE | 2017-10-30 13:31 | PN ---
DATE: 10/30/2017 SUBJECTIVE: The patient is in bed, in no acute distress, nontoxic. PHYSICAL EXAMINATION: VITAL SIGNS: Temperature is 98, blood pressure is 120/70, respiratory rate of 20. HEENT: Unremarkable. NECK: Supple. LUNGS: Have decreased breath sounds. HEART: Normal S1, S2. ABDOMEN: Soft. LABORATORY DATA: Reveals a white count of 13,000, hemoglobin of 8. Coagulation is noted and chemistries reveals a BUN of 12, creatinine of 1.0. Microbiology reveals the patient's foot cultures are noted. Stenotrophomonas maltophilia, Staph aureus, Enterobacter cloacae and another blood culture from the right foot is Staph aureus. The sensitivity is noted. Both are sensitive. Currently, the patient is on Zosyn. ASSESSMENT AND PLAN: A 62-year-old male with severe peripheral vascular disease, chronic obstructive lung disease, staghorn calculus, history of migraine headaches, asthma, chronic anemia, presenting with tachycardia, leukocytosis, sepsis with a sensitive Staph aureus, Enterobacter cloacae, Stenotrophomonas maltophilia, on Zosyn. The patient is awaiting for Podiatry and Vascular. The patient is for amputation of the gangrenous toes tomorrow. Delmar Portillo MD
--- NOTE | 2017-10-30 13:39 | CP.PCM.PN ---
<Patrice Herrera - Last Filed: 10/30/17 13:34> Subjective - Date & Time of Evaluation Date of Evaluation: 10/30/17 Time of Evaluation: 09:50 - Subjective Subjective: Podiatry Progress Note- Dr. Fonseca/Dr. 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 Patient is seen resting comfortably in bed, in NAD, and in AA0x3. Patient denies any overnight acute events. Patient reports the constant severe pain to the lower extremities. Patient denies n/v/sob/cp/chills/f or d. Patient is aware that he will be going to the OR for amputation of right 2nd and 3rd digit. No new pedal complaints today. Objective - Vital Signs/Intake and Output Vital Signs (last 24 hours): Temp Pulse Resp BP Pulse Ox 98.6 F 96 H 20 125/75 98 10/30/17 08:00 10/30/17 08:00 10/30/17 08:00 10/30/17 08:00 10/30/17 08:00 Intake and Output: 10/30/17 10/30/17 06:59 18:59 Intake Total 720 Balance 720 - Medications Medications: Current Medications Albuterol/Ipratropium (Duoneb 3 Mg/0.5 Mg (3 Ml) Ud) 3 ml IH [id number] PRN PRN Reason: Shortness of Breath Aspirin (Aspirin Chewable) 81 mg PO DAILY [facility] Last Admin: 10/30/17 10:14 Dose: 81 mg Docusate Sodium (Colace) 100 mg PO DAILY [facility] Last Admin: 10/30/17 10:14 Dose: 100 mg Ferrous Sulfate (Feosol) 324 mg PO TID [facility] Last Admin: 10/30/17 10:15 Dose: 324 mg Gabapentin (Neurontin) 300 mg PO TID [facility] PRN Reason: Protocol Last Admin: 10/30/17 10:15 Dose: 300 mg Piperacillin Sod/Tazobactam Sod (Zosyn 3.375 In Ns 100ml) 100 mls @ 200 mls/hr IVPB Q6 [facility] PRN Reason: Protocol Stop: 11/02/17 00:01 Last Admin: 10/30/17 12:54 Dose: 200 mls/hr Ibuprofen (Motrin Tab) 600 mg PO Q6H PRN PRN Reason: Pain, severe (8-10) Lorazepam (Ativan) 0.5 mg PO Q4 PRN PRN Reason: Anxiety Last Admin: 10/27/17 17:01 Dose: 0.5 mg Mupirocin (Bactroban Ointment) 0 gm TOP DAILY [facility] Last Admin: 10/29/17 12:05 Dose: 1 applic Nicotine (Nicoderm Cq) 1 patch TD DAILY [facility] Last Admin: 10/30/17 10:15 Dose: Not Given Oxycodone/Acetaminophen (Percocet 5/325 Mg Tab) 1 tab PO Q6H PRN PRN Reason: Pain, severe (8-10) Stop: 11/03/17 22:01 Last Admin: 10/29/17 19:10 Dose: 1 tab Pantoprazole Sodium (Protonix Ec Tab) 40 mg PO ACB [facility] Last Admin: 10/30/17 10:14 Dose: 40 mg - Labs Labs: 10/30/17 07:30 10/30/17 07:30 PT 14.6 SECONDS (9.4-12.5) H 10/23/17 13:00 INR 1.32 (0.93-1.08) H 10/23/17 13:00 - Constitutional Appears: Well, Non-toxic, No Acute Distress - Extremities Exam Additional comments: Lower extremity focused examination: Vasc: Bilateral DP and PT nonpalpable, temperature is cool to cool from proximal to distal toes, CFT >4 seconds, no edema noted DERM: LEFT: Open ulceration noted to the left ankle lateral malleolus measuring approximately 4cm x 3cm x .2cm, wound base is 90% fibrotic and 10% granular. No eschar noted to the wound base during this visitation, periwound is slightly macerated but intact, mild erythema noted to the periwound, no increase warmth, no streaking, no purulence, no active drainage, no odor, no tunneling, no undermining noted or probe to bone noted. No fluctuance or abscess -improving 3rd nail plate is absent nail bed. Hemmorhagic debris noted surrounding dorsum of 3rd digit. Nail bed is granular in nature, no drainage, no odor, no increase calor, no probe to bone, no abscess, no flucatuance. RIGHT: 2nd and 3rd digit is necrotic with demarcation to the digits noted, wet gangrene noted to the plantar aspect of the 2nd digit and 3rd digit at the demarcation border. Slight maceration noted to the 2nd interspace. Malodorous. There is no purulence or abscess noted. No drainage noted. Hyperpigmentation noted to the plantar aspect of 5th sulcus. Neuro: gross sensation intact bilaterally Ortho: severe pain with palpation of skin surrounding ulceration sites, MM is 5/ 5 in dorsiflexion, plantarflexion, eversion, and inversion - Neurological Exam Neurological Exam: Alert, Awake, Oriented x3 - Psychiatric Exam Psychiatric exam: Normal Affect, Normal Mood Assessment and Plan - Assessment and Plan (Free Text) Assessment: 62 y.o male with 1) right 2nd and 3rd digit gangrene 2) left lateral malleolus ulceration 3) left 3rd digit nail plate avulsion secondary to trauma. Plan: Patient seen and evaluated at bedside Discussed the plan in detail with attending Dr. Sanchez/Dr. Fonseca Vitals, labs, charts reviewed (afebrile, WBC trended up WBC=13.5) Duplex LE Right (10/24/17) Impression: The self expanding stent in the distal right external iliac artery and right common femoral artery patent. No thrombus or dissection is seen. The proximal right SFA is patent with normal waveforms. X-rays R foot (10/23/17) Impression: No acute findings related to/accounting for clinical presentation Wound culture right foot (10/23/17) - Staphylococcus Aureus Wound culture left foot (10/23/17)- Stenotrophonmonas Maltophilia- Heavy growth Staphylococcus Aureus- Heavy growth Enterobacter Cloacae Ssp Cloac- Light growth Right dressing changed with betadine application, dsd, and kerlix -During local wound care, patient refused 4x4 gauze to be placed between interspaces. Left ulceration cleansed with saline solution, optifoam applied Left 3rd digit- cleansed with saline- mupricin to be applied with dsd tmr C/W Zosyn per ID C/w pain management per team Patient may be WB. Surgical shoe to L and forefoot offloading shoe to the R. Should be worn at all times when ambulating Patient will go to the OR Monday at 7:30am for amputation of 2nd and 3rd right digits. Patient understands and agrees Pletal d/c- need total of 5 days prior to surgery Lovenox scheduled to stop Monday morning Patient was told to not drink or eat anything after midnight on Monday Will continue to follow while in house <Lorin Sanchez - Last Filed: 11/02/17 14:25> Objective - Vital Signs/Intake and Output Vital Signs (last 24 hours): Temp Pulse Resp BP Pulse Ox 98.1 F 107 H 18 109/57 L 95 10/31/17 09:15 10/31/17 09:15 10/31/17 09:15 10/31/17 09:15 10/31/17 09:15 - Labs Labs: 10/30/17 07:30 10/30/17 07:30 PT 14.6 SECONDS (9.4-12.5) H 10/23/17 13:00 INR 1.32 (0.93-1.08) H 10/23/17 13:00 Attending/Attestation - Attestation I have personally seen and examined this patient.: Yes I have fully participated in the care of the patient.: Yes I have reviewed all pertinent clinical information, including history, physical exam and plan: Yes
[2017-10-31] MEDS: Piperacillin/Tazobact 3.375 gm 100 ML IVPB SCH (06:47)
[2017-10-31] MEDS: Pantoprazole 40 mg EC Tab PO SCH (07:30)
[2017-10-31] MEDS ORDERED: Bupivacaine 0.5% Inj(30mL) ONE (07:31)
[2017-10-31] MEDS ORDERED: Lidocaine 1% Inj (20ml) ONE (07:31)
[2017-10-31] MEDS ORDERED: Propofol 10 mg/ml Inj (20 ML) ONE (07:40)
[2017-10-31] MEDS ORDERED: Midazolam 2 MG/2 ML VIAL ONE (07:40)
[2017-10-31 07:44] VITALS: TEMP 98.1
[2017-10-31] MEDS ORDERED: Bacitracin Ointment 30 GM TUBE ONE (07:48)
[2017-10-31] MEDS ORDERED: Oxycodone/Acetaminophen 5/325 mg Tab PO PRN ×3 (08:48→11:53)
[2017-10-31] MEDS ORDERED: HYDROmorphone 0.5 mg/0.5 ml ISec IVP PRN (08:50)
--- NOTE | 2017-10-31 08:56 | PCM.SURG1 ---
Surgeon's Initial Post Op Note - Surgeon's Notes Surgeon: Dr. Lorin Sanchez, DPM Special Education Instructor: Dr. Devon Vila, PGY1 Type of Anesthesia: General Endo, Local Anesthesia Administered By: Dr. Evans Pre-Operative Diagnosis: Gangrenous changes to right second and third digits Operative Findings: See dictation report. M- 2-0 vicryl, 3-0 vicryl, 3-0 nylon. I- Preop: 10 cc 1% lidocaine plain Post-Operative Diagnosis: Same Operation Performed: Resection of right second and third digits at proximal phalanx shaft Specimen/Specimens Removed: Soft tissue and bone right second and third digits Estimated Blood Loss: EBL {In ML}: 5 Blood Products Given: N/A Drains Used: No Drains Post-Op Condition: Good Date of Surgery/Procedure: 10/31/17 Time of Surgery/Procedure: 08:55
[2017-10-31] MEDS ORDERED: Lactated Ringer's 1,000 ML IV SCH (09:00)
[2017-10-31 09:39] VITALS: BP 109/57; PULSE 107; RESP 18; O2SAT 95
--- NOTE | 2017-10-31 10:03 | CON ---
DATE: 10/27/2017 He is being seen today for a followup consultation. PRESENTATION: Patient is a 62-year-old male seen at bedside. Psychiatry was called in consultation for this patient with concerns about depression and anxiety. Medically, patient has COPD and asthma. He also has stents to bilateral lower extremities. He is a smoker and what brought into the hospital was that the areas around one of the stents got infected. He developed fever, vomiting, and nausea and ended up hospitalized. Patient was seen in consultation per Dr. Ku. At that time, he had added Ativan p.r.n. to see if that would help with the patient's anxiety. On discussion with the nurses, patient has been cooperative on the unit and utilizing pain relief regularly. Patient is somewhat difficult to get information from. He is very scattered in his thought process. He is not psychotic, but he seems to have a hard time sticking with any kind of a topic. He indicates that he is doing well and he is comfortable with pain management and the treatment that needs to be done for his foot. MENTAL STATUS EXAM: Patient is alert and oriented x3. His eye contact is fair. His behavior is just cooperative. His speech rate and volume are within normal limits. His mood is anxious. His affect is constricted. His thoughts are goal directed, but concrete, simplistic and very very short. He denies being suicidal or homicidal. Denies the presence of hallucinations, delusions, or paranoia. His concentration and focus appears to be scattered. Memory, both short and cath lab nurse, is hard to assess as the patient, in general, is a poor historian from what I can gather from the notes as well as Dr. Ku's assessment. He indicates that his appetite is good and he is sleeping well. DIAGNOSTIC IMPRESSION: Adjustment disorder with anxious features; heroin and cocaine abuse by history; chronic obstructive pulmonary disease; asthma; and stents to bilateral lower extremities. PLAN: Patient is psychiatrically clear. He denies being suicidal or homicidal. There does not appear to be any psychotic processes going on and he does not appear in any imminent danger of hurting himself or others. His current vital signs include temperature 98.5, pulse rate 93, blood pressure 129/69 and O2 sat of 93. The final wound culture indicates staph infection , suspected Stenotrophomonas maltophilia. His blood culture, however, is negative, pending the Gram stain. Please call if there are any further concerns about this patient. Thank you for the consult. Sahnnon Giraldo APN Shalom Ku MD LYNNE
--- NOTE | 2017-10-31 11:30 | CP.PCM.PN ---
<Evan Jo - Last Filed: 10/31/17 11:06> Subjective - Date & Time of Evaluation Date of Evaluation: 10/31/17 Time of Evaluation: 09:55 - Subjective Subjective: Subjective: Patient seen and examined at bedside. Resting comfortably in bed. No acute overnight events. Patient states lower extremity pain is exacerbated s/p surgery. Offers no new complaints at this time. Denies fever, chills, chest pain, shortness of breath, abdominal pain, nausea, vomiting, diarrhea, constipation, and urinary symptoms 12-point review of systems negative except as indicated in the HPI Physical Examination: - Constitutional Appears: Non-Toxic, No Acute Distress - Head Exam Head Exam: ATRAUMATIC, NORMAL INSPECTION, NORMOCEPHALIC - Eye Exam Eye Exam: Normal appearance - ENT Exam ENT Exam: Mucous Membranes Moist - Respiratory Exam Respiratory Exam: Clear to Ausculation Bilateral. absent: Rales, Rhonchi, Wheezes - Cardiovascular Exam Cardiovascular Exam: +S1, +S2. absent: Murmur - GI/Abdominal Exam GI & Abdominal Exam: Soft, Normal Bowel Sounds. absent: Distended, Firm, Guarding, Tenderness, Organomegaly - Extremities Exam Extremities Exam: b/l lower extremities warm to palpation and normal color and right foot bandaged s/p resection of right second and third digits at proximal phalanx shaft - Neurological Exam Neurological Exam: Alert, Awake, Oriented x 3 - Psychiatric Exam Psychiatric exam: Anxious, Normal Affect Assessment and Plan: Patient is a 62 male with a past medical history of PAD s/p L SFA revascularization and L external iliac stent placement in 07/2017, cellulitis, HTN, nephrolithiasis, tobacco/cocaine/opiate use and migraines who was admitted for right foot pain. Patient was found to have cellulitis, PAD and gangrene PAD in RLE; R Foot Digit Gangrene - patient is POD #0 s/p Resection of right second and third digits at proximal phalanx shaft Right foot xray no acute findings - podiatry consulted - Dr. Sanchez -Recs Appreciated - Continue with ASA 81mg PO daily - Pain control: continue with PRN percocets, gabapenin, and prn ibprofen - wound cultures staphycoccus aureus of right foot and stenotrophomonas maltophilia; - ID consulted - Dr. Portillo- c/w Zosyn - Arterial Doppler (10/24/17) Impression: Stent in the distal right external iliac artery and right femoral artery patent. The proximal right SFA is patent with normal waveforms. Blood Per rectum - GI consulted -Recommends elective Outpatient colonoscopy and EGD Iron Deficiency Anemia (Stable) - Hgb reviewed, trended, and appreciated - History of iron deficiency anemia - Continue with Iron Supplementation - continue to monitor via daily CBC LLE lateral malleolus ulceration - s/p debridement - Wound culture - stenotrophomonas maltophilia, Staph Aureus, Enterobacter quinton left foot - Podiatry consulted - Recs appreciated - Zosyn per ID Hx of Tobacco Abuse - encouraged smoking cessation, education on danger of smoking/chewing tobacco products provided - nicoderm patch Hx asthma - duoneb PRN Prophylaxis - GI c/w Protonix - DVT ppx- will restart lovenox pending podo approval Patient seen, case discussed with, and plan approved by attending physician, Dr. Aguirre. Objective - Vital Signs/Intake and Output Vital Signs (last 24 hours): Temp Pulse Resp BP Pulse Ox 98.1 F 107 H 18 109/57 L 95 10/31/17 09:15 10/31/17 09:15 10/31/17 09:15 10/31/17 09:15 10/31/17 09:15 Intake and Output: 10/31/17 10/31/17 06:59 18:59 Intake Total 1110 75 Balance 1110 75 - Medications Medications: Current Medications Acetaminophen (Tylenol 325mg Tab) 650 mg PO Q4H PRN PRN Reason: Pain, Mild (1-3) Albuterol/Ipratropium (Duoneb 3 Mg/0.5 Mg (3 Ml) Ud) 3 ml IH [id number] PRN PRN Reason: Shortness of Breath Aspirin (Aspirin Chewable) 81 mg PO DAILY [facility] Last Admin: 10/31/17 10:29 Dose: Not Given Docusate Sodium (Colace) 100 mg PO DAILY [facility] Last Admin: 10/31/17 10:29 Dose: Not Given Ferrous Sulfate (Feosol) 324 mg PO TID [facility] Last Admin: 10/31/17 10:29 Dose: Not Given Gabapentin (Neurontin) 300 mg PO TID [facility] PRN Reason: Protocol Last Admin: 10/31/17 10:29 Dose: Not Given Piperacillin Sod/Tazobactam Sod (Zosyn 3.375 In Ns 100ml) 100 mls @ 200 mls/hr IVPB Q6 [facility] PRN Reason: Protocol Stop: 11/02/17 00:01 Last Admin: 10/31/17 06:47 Dose: 200 mls/hr Ibuprofen (Motrin Tab) 600 mg PO Q6H PRN PRN Reason: Pain, severe (8-10) Lorazepam (Ativan) 0.5 mg PO Q4 PRN PRN Reason: Anxiety Last Admin: 10/27/17 17:01 Dose: 0.5 mg Mupirocin (Bactroban Ointment) 0 gm TOP DAILY [facility] Last Admin: 10/31/17 10:30 Dose: Not Given Nicotine (Nicoderm Cq) 1 patch TD DAILY [facility] Last Admin: 10/31/17 10:29 Dose: Not Given Oxycodone/Acetaminophen (Percocet 5/325 Mg Tab) 1 tab PO Q6H PRN PRN Reason: Pain, severe (8-10) Stop: 11/03/17 22:01 Last Admin: 10/29/17 19:10 Dose: 1 tab Oxycodone/Acetaminophen (Percocet 5/325 Mg Tab) 1 tab PO Q4H PRN PRN Reason: Pain, moderate (4-7) Stop: 11/03/17 08:49 Oxycodone/Acetaminophen (Percocet 5/325 Mg Tab) 2 tab PO Q4H PRN PRN Reason: Pain, severe (8-10) Stop: 11/03/17 08:49 Last Admin: 10/31/17 10:25 Dose: 2 tab Pantoprazole Sodium (Protonix Ec Tab) 40 mg PO ACB [facility] Last Admin: 10/31/17 07:30 Dose: Not Given - Labs Labs: 10/30/17 07:30 10/30/17 07:30 PT 14.6 SECONDS (9.4-12.5) H 10/23/17 13:00 INR 1.32 (0.93-1.08) H 10/23/17 13:00 <Bruce Aguirre - Last Filed: 10/31/17 12:50> Objective - Vital Signs/Intake and Output Vital Signs (last 24 hours): Temp Pulse Resp BP Pulse Ox 98.1 F 107 H 18 109/57 L 95 10/31/17 09:15 10/31/17 09:15 10/31/17 09:15 10/31/17 09:15 10/31/17 09:15 Intake and Output: 10/31/17 10/31/17 06:59 18:59 Intake Total 1110 75 Balance 1110 75 - Medications Medications: Current Medications Acetaminophen (Tylenol 325mg Tab) 650 mg PO Q4H PRN PRN Reason: Pain, Mild (1-3) Albuterol/Ipratropium (Duoneb 3 Mg/0.5 Mg (3 Ml) Ud) 3 ml IH [id number] PRN PRN Reason: Shortness of Breath Aspirin (Aspirin Chewable) 81 mg PO DAILY [facility] Last Admin: 10/31/17 10:29 Dose: Not Given Ciprofloxacin (Cipro) 500 mg PO Q12 [facility] PRN Reason: Protocol Stop: 11/11/17 11:51 Docusate Sodium (Colace) 100 mg PO DAILY [facility] Last Admin: 10/31/17 10:29 Dose: Not Given Ferrous Sulfate (Feosol) 324 mg PO TID [facility] Last Admin: 10/31/17 10:29 Dose: Not Given Gabapentin (Neurontin) 300 mg PO TID [facility] PRN Reason: Protocol Last Admin: 10/31/17 10:29 Dose: Not Given Ibuprofen (Motrin Tab) 600 mg PO Q6H PRN PRN Reason: Pain, severe (8-10) Lorazepam (Ativan) 0.5 mg PO Q4 PRN PRN Reason: Anxiety Last Admin: 10/27/17 17:01 Dose: 0.5 mg Mupirocin (Bactroban Ointment) 0 gm TOP DAILY [facility] Last Admin: 10/31/17 10:30 Dose: Not Given Nicotine (Nicoderm Cq) 1 patch TD DAILY [facility] Last Admin: 10/31/17 10:29 Dose: Not Given Oxycodone/Acetaminophen (Percocet 5/325 Mg Tab) 1 tab PO Q6H PRN PRN Reason: Pain, severe (8-10) Stop: 11/03/17 22:01 Last Admin: 10/29/17 19:10 Dose: 1 tab Oxycodone/Acetaminophen (Percocet 5/325 Mg Tab) 1 tab PO Q4H PRN PRN Reason: Pain, moderate (4-7) Stop: 11/03/17 08:49 Oxycodone/Acetaminophen (Percocet 5/325 Mg Tab) 2 tab PO Q4H PRN PRN Reason: Pain, severe (8-10) Stop: 11/03/17 08:49 Last Admin: 10/31/17 10:25 Dose: 2 tab Oxycodone/Acetaminophen (Percocet 5/325 Mg Tab) 1 tab PO Q6H PRN PRN Reason: Pain, severe (8-10) Stop: 11/05/17 11:54 Pantoprazole Sodium (Protonix Ec Tab) 40 mg PO ACB [facility] Last Admin: 10/31/17 07:30 Dose: Not Given - Labs Labs: 10/30/17 07:30 10/30/17 07:30 PT 14.6 SECONDS (9.4-12.5) H 10/23/17 13:00 INR 1.32 (0.93-1.08) H 10/23/17 13:00 Attending/Attestation - Attestation I have personally seen and examined this patient.: Yes I have fully participated in the care of the patient.: Yes I have reviewed all pertinent clinical information, including history, physical exam and plan: Yes Notes (Text): 10/31/17 12:47 62 year old male with past medical history of PVD, hypertension and substance abuse who presented right foot cellulitis and gangrene of 3rd/4th toe. Continue with iv antibiotics as per ID and wound care as per podiatry. He is s/ p amputation of toes as above today. He is on aspirin and pletal was held for planned surgery. He also has microcytic anemia. Continue with iron supplementation. GI has recommended outpatient EGD/colonoscopy. Patient seen an examined post op procedure. He states he is comtemplating leaving home later today. Will follow up with podiatry and ID recommendations. Bruce Aguirre MD Hospitalist.
--- NOTE | 2017-10-31 14:38 | OP ---
PROCEDURE DATE: 10/31/2017 PREOPERATIVE DIAGNOSES: Gangrenous changes to the right second and third digits with infection. POSTOPERATIVE DIAGNOSES: Gangrenous changes to the right second and third digits with infection. NAME OF PROCEDURE: 1. Resection of right second digit at proximal phalanx shaft. 2. Resection of right third digit at proximal phalanx shaft. SURGEON: Lorin Sanchez DPM GLOVE TAGGER: Devon Vila, PGY-1 ANESTHESIOLOGIST: Dr. Evans. TYPE OF ANESTHESIA: General with local. INDICATIONS: The patient is a 62-year-old male with the above diagnosis. The patient has exhausted all conservative treatments at this time and now requires surgical intervention. The patient signed consent after careful explanation of risks, benefits, complications, and alternatives for surgical procedure. No guarantees were given nor implied. N.p.o. status was confirmed prior to taking the patient to the OR. PREPARATION: The patient was brought into the operating room and placed on the operating room table in a supine position. A time-out was performed for identification of the correct patient and procedure. After induction of general anesthesia, the patient received a total of 10 mL of 1% lidocaine plain in a local block fashion to the right foot. The right lower extremity was then prepped and draped in a normal sterile manner and the procedure began. No tourniquet was used during the procedure. DESCRIPTION OF PROCEDURE: 1. Attention was then turned to the right second digit. Using a fresh #15 blade, a racquet type incision was made circumferentially around the digit at the level of the proximal interphalangeal joint. The digit was then disarticulated at the proximal interphalangeal joint and all nonviable necrotic and tissue was removed with a #15 blade. Using skin hooks, the remaining proximal skin was then retracted, exposing the head of the proximal phalanx of the second digit. Bone cutters were used to resect the distal most aspect of proximal phalanx at the level of the phalanx shaft just proximal to the flare of the bone. 2. Attention was then turned to the right third digit. Using a new fresh #15 blade, a circumferential racquet type incision was made to the digit at the level of the proximal interphalangeal joint. The digit was then disarticulated at the proximal interphalangeal joint and all nonviable and necrotic tissue was removed from the area and excised from the field. Using skin hooks, the remaining proximal skin was then retracted exposing the proximal phalanx of the third digit. Manual bone cutters were used to excise the distal most aspect of the proximal phalanx from the field at the level of the bone flare at the shaft of the proximal phalanx. Both surgical sites were then copiously flushed with normal sterile saline and closed with 2-0 Vicryl deep and 3-0 nylon superficially. The surgical site was then dressed using Adaptic gauze, Kerlix, and a stockinette. POSTOPERATIVE CONDITION: The patient tolerated the anesthesia and procedure well and was escorted to the recovery room with vital signs stable and neurovascular status intact to the right lower extremity. The patient is to remain weightbearing as tolerated to the right side using surgical shoe. The patient will remain in-house for at least one night and will most likely be discharged home tomorrow. The patient will follow up with Dr. Sanchez in the wound care center in 1 week's time. Devon Vila DPM Lorin Sanchez DPM [id number]
--- NOTE | 2017-10-31 17:24 | PN ---
DATE: SUBJECTIVE: A 62-year-old male, who was operated on this morning, undergoing a right second and third partial digit amputation. He is requesting that he be discharged home. He has been told repeatedly that it is against medical advice to leave; however, he is refusing to listen to medical advice. The patient will be discharged home with the forefoot wedge shoe, which is to be worn at all times in an effort to prevent his surgical site from swelling and the sutures loosening or possibly opening and causing an open wound at his surgical site. The patient was told repeatedly that he should stay; however, he is refusing. In fact, the patient was seen roaming the halls with his forefoot shoe on and states that he cannot stay in the hospital any longer. The patient was told that he must follow up on at [facility] for dressing change. We will order Cipro 500 mg p.o. b.i.d. for antibiotic coverage and he is adamantly requesting pain medication. In fact, he is telling me which pain medications we should prescribe to him for pain. The patient was given a prescription for Percocet 5/325 mg take 1 tab p.o. every 6 hours as needed for pain. The patient was told that if he notices bleeding from the bandage site or if he experiences fever, chills, nausea or vomiting, he should return to the emergency room immediately. In fact, the patient was told that if he has any concerns with his foot whatsoever, he should return to the emergency room immediately. The patient stated he understood and all his questions were answered; however, most of them pertained to the pain medication and how often he could get a refill. The patient will be seen by Dr. Sanchez on . Tristin Fonseca DPM
--- NOTE | 2017-11-01 13:29 | CP.PCM.DIS ---
<Evan Jo - Last Filed: 11/01/17 13:31> Provider - Provider Attending physician: Lorin Sanchez DPM Time Spent in preparation of Discharge (in minutes): 45 Diagnosis - Discharge Diagnosis (1) Gangrene Status: Resolved Priority: Medium (2) Foot pain Status: Acute Priority: Medium (3) PVD (peripheral vascular disease) Status: Acute Priority: Medium Hospital Course - Hospital Course Hospital Course: Patient is a 62 male with a past medical history of PAD s/p L SFA revascularization and L external iliac stent placement in 07/2017, cellulitis, HTN, nephrolithiasis, tobacco/cocaine/opiate use and migraines who was admitted for right foot pain. With the use of physical examinations, lab work, and imaging the patient was diagnosed with and treated for cellulitis, PAD and gangrene. During their hospital stay the patient was seen by podiatry, infectious disease whose their recommendations were both appreciated and utilized in the care for this patient. During their hospital stay the patient underwent resection of right second and third digits at proximal phalanx shaft. Patient also underwent a foot xray and US of LEs which were reviewed, appreciated, and utilized in the management of the patients clinical course. Patient was treated with antibiotics, analgesic medications amongst other empiric/therapeutic medications. Patient desired to leave against medical advice and was deemed to have mental capacity to make that decision. Patient was educated on the risks and benefits of leaving at this time without being medically cleared. Patient both understands and appreciates that leaving against medical advice can increase his risk of both morbidity and mortality. Furthermore, the patient is instructed to return to the emergency room for evaluation of intractable headache, fever, chills, dizziness, chest pain, shortness of breath, abdominal pain, nausea, vomiting, diarrhea, constipation, and urinary symptoms. This is a brief summary of the patients hospital course. Please see patient chart for full details. Discharge Exam - Additional Findings Additional findings: please refer to progress note from 10/31/17 as this was the date the patient left against medical advice. Discharge Plan - Follow Up Plan Condition: GOOD Disposition: AGAINST MEDICAL ADVICE Patient education suggested?: Yes <Bruce Aguirre - Last Filed: 11/01/17 14:45> Provider - Provider Attending physician: Lorin Sanchez DPM Attending/Attestation - Attestation I have personally seen and examined this patient.: Yes I have fully participated in the care of the patient.: Yes I have reviewed all pertinent clinical information, including history, physical exam and plan: Yes Notes (Text): 11/01/17 14:44 62 year old male with past medical history of PVD, hypertension and substance abuse who presented right foot cellulitis and gangrene of 3rd/4th toe. He was started on iv antibiotics. He was seen by podiatry and is s/p amputation of toes as above today. Post procedure he signed out AMA. Bruce Aguirre MD Hospitalist.
--- NOTE | 2017-11-01 14:51 | CP.PCM.DIS ---
Provider - Provider Date of Admission: 10/23/17 14:59 Attending physician: Bruce Aguirre MD Time Spent in preparation of Discharge (in minutes): 45 Diagnosis - Discharge Diagnosis (1) Gangrene Status: Resolved Priority: Medium (2) Foot pain Status: Chronic Priority: Medium (3) PVD (peripheral vascular disease) Status: Chronic Priority: Medium Hospital Course - Lab Results Lab Results: Micro Results 10/23/17 18:02 Foot - Left Gram Stain - Final 10/23/17 18:02 Foot - Left Wound Culture - Final Stenotrophomonas Maltophilia Staphylococcus Aureus Enterobacter Cloacae Ssp Cloac 10/23/17 18:02 Foot - Right Gram Stain - Final 10/23/17 18:02 Foot - Right Wound Culture - Final Staphylococcus Aureus Most Recent Lab Values WBC 13.5 10^3/ul (4.5-11.0) H 10/30/17 07:30 RBC 3.65 10^6/uL (3.5-6.1) 10/30/17 07:30 Hgb 8.5 g/dL (14.0-18.0) L 10/30/17 07:30 Hct 28.9 % (42.0-52.0) L 10/30/17 07:30 MCV 79.2 fl (80.0-105.0) L 10/30/17 07:30 MCH 23.3 pg (25.0-35.0) L 10/30/17 07:30 MCHC 29.4 g/dl (31.0-37.0) L 10/30/17 07:30 RDW 19.3 % (11.5-14.5) H 10/30/17 07:30 Plt Count 509 10^3/uL (120.0-450.0) H 10/30/17 07:30 MPV 8.7 fl (7.0-11.0) 10/30/17 07:30 Gran % 67.5 % (50.0-68.0) 10/28/17 09:00 Lymph % (Auto) 15.6 % (22.0-35.0) L 10/28/17 09:00 [place] % (Auto) 4.8 % (1.0-6.0) 10/28/17 09:00 Eos % (Auto) 11.6 % (1.5-5.0) H 10/28/17 09:00 Baso % (Auto) 0.5 % (0.0-3.0) 10/28/17 09:00 Gran # 9.11 (1.4-6.5) H 10/28/17 09:00 Lymph # 2.1 (1.2-3.4) 10/28/17 09:00 [place] # 0.7 (0.1-0.6) H 10/28/17 09:00 Eos # 1.6 (0.0-0.7) H 10/28/17 09:00 Baso # 0.07 K/mm3 (0.0-2.0) 10/28/17 09:00 PT 14.6 SECONDS (9.4-12.5) H 10/23/17 13:00 INR 1.32 (0.93-1.08) H 10/23/17 13:00 pO2 24 mm/Hg (30-55) L 10/23/17 13:00 VBG pH 7.40 (7.32-7.43) 10/23/17 13:00 VBG pCO2 48.0 (40-60) 10/23/17 13:00 VBG HCO3 29.7 mmol/l (21-28) H 10/23/17 13:00 VBG Total CO2 31.2 mmol.L (22-28) H 10/23/17 13:00 VBG O2 Sat (Calc) 48.4 % (40-65) 10/23/17 13:00 VBG Base Excess 4.0 mmol/L (0.0-2.0) H 10/23/17 13:00 VBG Potassium 3.8 mmol/L (3.6-5.2) 10/23/17 13:00 Sodium 140.0 mmol/L (132-148) 10/23/17 13:00 Chloride 107.0 mmol/L (98-107) 10/23/17 13:00 Glucose 103 mg/dl (75-110) 10/23/17 13:00 Lactate 1.0 mmol/L (0.7-2.1) 10/23/17 13:00 FiO2 21.0 % 10/23/17 13:00 Sodium 140 mmol/L (132-148) 10/30/17 07:30 Potassium 4.2 mmol/L (3.6-5.0) 10/30/17 07:30 Chloride 101 mmol/L (98-107) 10/30/17 07:30 Carbon Dioxide 30 mmol/L (21-33) 10/30/17 07:30 Anion Gap 13 (10-20) 10/30/17 07:30 BUN 12 mg/dL (7-21) 10/30/17 07:30 Creatinine 1.0 mg/dl (0.8-1.5) 10/30/17 07:30 Est GFR ( Amer) > 60 10/30/17 07:30 Est GFR (Non-Af Amer) > 60 10/30/17 07:30 POC Glucose (mg/dL) 89 mg/dL (65-110) 10/24/17 00:12 Random Glucose 150 mg/dL (70-110) H 10/30/17 07:30 Calcium 9.2 mg/dL (8.4-10.5) 10/30/17 07:30 Total Bilirubin 0.2 mg/dL (0.2-1.3) 10/28/17 09:00 AST 24 U/L (17-59) 10/28/17 09:00 ALT 22 U/L (7-56) 10/28/17 09:00 Alkaline Phosphatase 89 U/L (38-126) 10/28/17 09:00 Total Protein 7.0 g/dL (5.8-8.3) 10/28/17 09:00 Albumin 3.2 g/dL (3.0-4.8) 10/28/17 09:00 Globulin 3.8 gm/dL 10/28/17 09:00 Albumin/Globulin Ratio 0.8 (1.1-1.8) L 10/28/17 09:00 Procalcitonin 7.27 NG/ML (0.19-0.49) H 10/23/17 13:45 Venous Blood Potassium 3.8 mmol/L (3.6-5.2) 10/23/17 13:00 - Hospital Course Hospital Course: Patient is a 62 male with a past medical history of PAD s/p L SFA revascularization and L external iliac stent placement in 07/2017, cellulitis, HTN, nephrolithiasis, tobacco/cocaine/opiate use and migraines who was admitted for right foot pain. With the use of physical examinations, lab work, and imaging the patient was diagnosed with and treated for cellulitis, PAD and gangrene. During their hospital stay the patient was seen by podiatry, infectious disease whose their recommendations were both appreciated and utilized in the care for this patient. During their hospital stay the patient underwent resection of right second and third digits at proximal phalanx shaft. Patient also underwent a foot xray and US of LEs which were reviewed, appreciated, and utilized in the management of the patients clinical course. Patient was treated with antibiotics, analgesic medications amongst other empiric/therapeutic medications. Patient desired to leave against medical advice and was deemed to have mental capacity to make that decision. Patient was educated on the risks and benefits of leaving at this time without being medically cleared. Patient both understands and appreciates that leaving against medical advice can increase his risk of both morbidity and mortality. Furthermore, the patient is instructed to return to the emergency room for evaluation of intractable headache, fever, chills, dizziness, chest pain, shortness of breath, abdominal pain, nausea, vomiting, diarrhea, constipation, and urinary symptoms. This is a brief summary of the patients hospital course. Please see patient chart for full details. Discharge Exam - Head Exam Head Exam: NORMAL INSPECTION - Additional Findings Additional findings: please refer to progress note from 10/31/17 as this was the date the patient left against medical advice. Discharge Plan - Follow Up Plan Condition: STABLE Disposition: AGAINST MEDICAL ADVICE Referrals: Antwan Pardo MD [Staff Provider] - Jesus Huddleston MD [Staff Provider] -
== END 2017-10-31 16:57 | disposition left against medical advice (07) | DRG 854 ==
LOC: ED 12:41 → ERH 14:59 → 5RSO 17:13
PROVIDERS: ADMIT Internal Medicine; ATTEND Internal Medicine
PROC: 0Y6T0Z0 Detachment at Right 3rd Toe, Complete, Open Approach (ICD-10-PCS; 2017-10-31)
PROC: 0Y6R0Z0 Detachment at Right 2nd Toe, Complete, Open Approach (ICD-10-PCS; principal; 2017-10-31 07:30)
DX: A41.01 Sepsis due to Methicillin susceptible Staphylococcus aureus (principal); E11.52 Type 2 diabetes mellitus with diabetic peripheral angiopathy with gangrene; E11.22 Type 2 diabetes mellitus with diabetic chronic kidney disease; M86.171 Other acute osteomyelitis, right ankle and foot; D50.9 Iron deficiency anemia, unspecified; F11.10 Opioid abuse, uncomplicated; L03.115 Cellulitis of right lower limb; L97.329 Non-pressure chronic ulcer of left ankle with unspecified severity; E11.69 Type 2 diabetes mellitus with other specified complication; W01.0XXA Fall on same level from slipping, tripping and stumbling without subsequent striking against object, initial encounter; E11.622 Type 2 diabetes mellitus with other skin ulcer; A41.59 Other Gram-negative sepsis; F14.90 Cocaine use, unspecified, uncomplicated; F17.210 Nicotine dependence, cigarettes, uncomplicated; F43.22 Adjustment disorder with anxiety; G43.909 Migraine, unspecified, not intractable, without status migrainosus; I12.9 Hypertensive chronic kidney disease with stage 1 through stage 4 chronic kidney disease, or unspecified chronic kidney disease; J44.9 Chronic obstructive pulmonary disease, unspecified; N18.9 Chronic kidney disease, unspecified; N20.0 Calculus of kidney; S99.922A Unspecified injury of left foot, initial encounter; W22.8XXA Striking against or struck by other objects, initial encounter; Z53.20 Procedure and treatment not carried out because of patient's decision for unspecified reasons; Z79.82 Long term (current) use of aspirin; Z79.899 Other long term (current) drug therapy; Z82.49 Family history of ischemic heart disease and other diseases of the circulatory system; Z83.3 Family history of diabetes mellitus; Z87.442 Personal history of urinary calculi; Z89.429 Acquired absence of other toe(s), unspecified side; Z91.19 Patient's noncompliance with other medical treatment and regimen; Z95.820 Peripheral vascular angioplasty status with implants and grafts